=== PATIENT | female | born 1950 | race Caucasian/White ===

== ENCOUNTER → 2020-11-13 11:06 | Outpatient (BNVA) | payer MEDICARE, SELFPAY | PROVIDERS: PCP Internal Medicine; Visit Provider Hospitalist | DX: Z13.89 Encounter for screening for other disorder (principal) | CPT/HCPCS: 99212 ==

== ENCOUNTER 2021-06-16 11:16 | Outpatient (REF) | payer MEDICARE, SELFPAY ==
--- NOTE | ~2021-06-16 | XR_ITS ---
EXAMINATION: XR CHEST CLINICAL INFORMATION: Exposure to asbestos. COMPARISON: Most recent chest radiograph dated 09/20/2019. TECHNIQUE: 2 views of the chest were obtained. FINDINGS: The lungs are clear. The cardiomediastinal silhouette is normal in size. There is no pleural effusion or pneumothorax. No acute osseous abnormality. XR/XR chest 2V IMPRESSION: No acute cardiopulmonary findings.
== END 2021-06-16 11:17 | disposition home or self-care (01) ==
LOC: HO.XRAY 11:16
PROVIDERS: PCP Physician Assistant Medical; Visit Provider Hospitalist
DX: J45.40 Moderate persistent asthma, uncomplicated (principal); G47.33 Obstructive sleep apnea (adult) (pediatric); D80.1 Nonfamilial hypogammaglobulinemia; Z79.899 Other long term (current) drug therapy; Z77.090 Contact with and (suspected) exposure to asbestos
CPT/HCPCS: 71046; 99212

== ENCOUNTER 2021-06-26 12:38 | Outpatient (REF) | payer MEDICARE, SELFPAY ==
--- NOTE | 2021-06-26 17:14 | PFT_ITS ---
INDICATION: Dyspnea. SPIROMETRY: The FEV1 to FVC of 73% with an FEV1 of 1.72 L, which is predicted, and FVC 2.37 L, which is 88% predicted. No significant response to bronchodilators noted. Maximum voluntary ventilation 85% predicted. LUNG VOLUMES: Total lung capacity 105% predicted with an expiratory reserve volume of 51% predicted. DIFFUSION CAPACITY: DLCO 89% predicted. FLOW VOLUME LOOP: Upon evaluation, there appears to be some slight concavity to the expiratory limb suggesting obstructive physiology. COMPARISON: PFTs from 2020. INTERPRETATION: No definitive obstructive nor restrictive ventilatory defects. No significant response to bronchodilators noted. Although, there appears to be some degree of small airways disease and the flow volume loop is suggestive of an obstructive physiology. Normal maximum voluntary ventilation. Lung volumes are normal except for decrease in the expiratory reserve volume secondary to an elevated BMI. Diffusion capacity is within normal limits. When compared to 2019, there is a trend increase in the FVC, trend increase in the FEV1, significant increase in the total lung capacity, and a trend decrease in the diffusion capacity. Clinical correlation warranted. MD MEGAN Esp[place]/CARRIE / [id number]
== END 2021-06-26 12:39 | disposition home or self-care (01) ==
LOC: HO.RESP 12:38
PROVIDERS: PCP Physician Assistant Medical; Visit Provider Hospitalist
DX: R06.00 Dyspnea, unspecified (principal); J45.40 Moderate persistent asthma, uncomplicated; Z77.090 Contact with and (suspected) exposure to asbestos
CPT/HCPCS: 94060; 94727; 94729

== ENCOUNTER → 2021-07-24 12:48 | Outpatient (BNVA) | payer MEDICARE, SELFPAY | PROVIDERS: PCP Physician Assistant Medical; Visit Provider Hospitalist | DX: J44.9 Chronic obstructive pulmonary disease, unspecified (principal); J45.40 Moderate persistent asthma, uncomplicated; R06.00 Dyspnea, unspecified; D80.1 Nonfamilial hypogammaglobulinemia; G47.33 Obstructive sleep apnea (adult) (pediatric); Z77.090 Contact with and (suspected) exposure to asbestos; Z91.09 Other allergy status, other than to drugs and biological substances; Z99.89 Dependence on other enabling machines and devices; Z20.822 Contact with and (suspected) exposure to COVID-19 | CPT/HCPCS: 99212 ==

== ENCOUNTER 2022-01-14 13:43 | Outpatient (REF) | payer MEDICARE, SELFPAY ==
[2022-01-14 13:59] LABS: MANUAL DIFF FLAG NO
[2022-01-14 14:22] LABS: Basophils Absolute Auto 0.1 X10*3/uL (0.0-0.2); Basophils Percent Auto 0.7 % (0-2); Eosinophils Absolute Auto 0.2 X10*3/uL (0.0-0.4); Eosinophils Percent Auto 2.3 % (0-4); Hematocrit 41.9 % (37.0-47.0); Imm Gran Abs Auto 0.02 X10*3/uL (0.00-0.03); Imm Gran Pct Auto 0.2 % (0.0-0.4); Lymphocytes Absolute Auto 1.8 X10*3/uL (1.2-4.9); Lymphocytes Percent Auto 20.8 % (20-40); Mean Corpuscular HGB Conc 33.4 g/dl (31.0-35.0); Mean Corpuscular Hemoglobin 31.2 pg (27.0-33.0); Mean Corpuscular Volume 93.3 fL (80.0-98.0); Mean Platelet Volume 11.6 fL (9.4-12.3); Monocytes Absolute Auto 0.7 X10*3/uL (0.1-1.2); Monocytes Percent Auto 7.9 % (2-11); Neutrophils Percent Auto 68.1 % (45-73); Platelet Count 225 X10*3/uL (160-400); Red Blood Count 4.49 X10*6/uL (4.20-5.50); Red Cell Distribution Width 12.6 % (11.0-16.0); White Blood Count 8.9 X10*3/uL (4.8-10.8)
[2022-01-14 14:40] LABS: Anion Gap 14 (12-20); Blood Urea Nitrogen 25 mg/dL (9-16); Carbon Dioxide 28 mmol/L (22-29); Chloride 103 mmol/L (96-108); Estimated Glomerular Filt Rate 60; Glucose Random 142 mg/dL (60-115); Potassium 4.4 mmol/L (3.3-5.1); Sodium 141 mmol/L (135-145)
[2022-01-14 15:28] LABS: Erythrocyte Sedimentation Rate 41 MM/HR (0-20)
[2022-01-16 07:32] LABS: Immunoglobulin E 62 kU/L (<OR=114)
== END 2022-01-14 13:44 | disposition home or self-care (01) ==
LOC: HO.LAB 13:43
PROVIDERS: PCP Physician Assistant Medical; Visit Provider Hospitalist
DX: J45.40 Moderate persistent asthma, uncomplicated (principal); G47.33 Obstructive sleep apnea (adult) (pediatric)
CPT/HCPCS: 36415; 80048; 82785; 85025; 85652

== ENCOUNTER 2022-01-22 12:58 | Outpatient (REF) | payer MEDICARE, SELFPAY ==
--- NOTE | ~2022-01-22 | XR_ITS ---
EXAMINATION: XR CHEST CLINICAL INFORMATION: Pleurodynia COMPARISON: Previous chest x-ray June 2021 TECHNIQUE: 2 views of the chest were obtained. FINDINGS: The cardiac and mediastinal contours are stable. The lungs are clear. There is no pleural effusion or pneumothorax. There are degenerative changes of the spine. There may be old trauma to the left clavicle. XR/XR chest 2V IMPRESSION: No evidence for acute disease in the chest.
== END 2022-01-22 12:59 | disposition home or self-care (01) ==
LOC: HO.XRAY 12:58
PROVIDERS: PCP Physician Assistant Medical; Visit Provider Hospitalist
DX: R07.81 Pleurodynia (principal); J45.40 Moderate persistent asthma, uncomplicated; G47.33 Obstructive sleep apnea (adult) (pediatric); D80.1 Nonfamilial hypogammaglobulinemia; Z77.090 Contact with and (suspected) exposure to asbestos
CPT/HCPCS: 71046; 99212

== ENCOUNTER → 2022-07-22 12:53 | Outpatient (BNVA) | payer MEDICARE, SELFPAY | PROVIDERS: PCP Physician Assistant Medical; Visit Provider Hospitalist | DX: J45.40 Moderate persistent asthma, uncomplicated (principal); J44.9 Chronic obstructive pulmonary disease, unspecified; G47.33 Obstructive sleep apnea (adult) (pediatric); D80.1 Nonfamilial hypogammaglobulinemia; R07.81 Pleurodynia; Z77.090 Contact with and (suspected) exposure to asbestos; Z99.89 Dependence on other enabling machines and devices | CPT/HCPCS: 99212 ==

== ENCOUNTER → 2023-01-27 12:50 | Outpatient (BNVA) | payer MEDICARE, SELFPAY | PROVIDERS: PCP Physician Assistant Medical; Visit Provider Hospitalist | DX: J45.40 Moderate persistent asthma, uncomplicated (principal); G47.33 Obstructive sleep apnea (adult) (pediatric); D80.1 Nonfamilial hypogammaglobulinemia; Z77.090 Contact with and (suspected) exposure to asbestos | CPT/HCPCS: 99212 ==

== ENCOUNTER 2023-05-13 13:31 | Outpatient (AMB) | payer MEDICARE, SELFPAY ==
--- NOTE | 2023-05-13 13:32 | A.OFFVIS_ITS ---
Intake Vital Signs 05/13/23 13:33 Height 5 ft 1 in Weight 231 lb 7.766 oz BMI 43.7 BP 138/67 Blood Pressure Location Rt brachial Position Sitting Pulse 74 Pulse Source Doppler Pulse Oximetry (%) 98 Oxygen Delivery Method Room Air Intake Visit Reasons: SV Allergies Tape Allergy (Severe, Uncoded 01/27/23 13:03) Itching HPI SV HPI Details 72-year-old lady, followed by Dr. Saurav covarrubias for asthma and hypogammaglobulinemia, now presenting with an acute bronchitic exacerbation complaining of wheezing worsening dyspnea on exertion. [facility] Medical History (Updated 05/13/23 @ 13:54 by Navid Toussaint MD) Asbestos exposure Hypogammaglobulinemia BRIDGET treated with BiPAP Asthma Social History Patient Tobacco Use Status: Never used Tobacco Review of Systems Const Denies daytime sleepiness, Denies excessive sweating, Denies fatigue, Denies fever(s), Denies lethargy, Denies malaise, Denies night sweats, Denies snoring and Denies weight loss Eyes Denies blurry vision and Denies itchy eyes ENT Denies nasal congestion, Denies post nasal drip, Denies sinus pain, Denies sinus pressure and Denies other ( Thrush) Card Denies chest pain, Denies pedal edema, Denies dyspnea, Reports dyspnea on exertion, Denies orthopnea and Denies paroxysmal nocturnal dyspnea Resp Reports cough, Denies hemoptysis, Denies excessive phlegm production, Denies dyspnea, Reports dyspnea on exertion, Denies snoring and Reports wheezing GI Denies abdominal pain and Denies heartburn Musc Denies myalgias, Denies arthralgias and Denies joint swelling Skin/Breast Denies rash Neuro Denies memory loss and Denies seizure-like activity Psych Denies abnormal sleep pattern, Denies anxiety and Denies memory loss Endo Denies excessive sweating, Denies fatigue and Denies heat intolerance Preston/Lymph Denies easy bruising Aller/Immun Denies itchy eyes, Denies seasonal rhinorrhea and Reports wheezing Physical Exam Vital Signs: Last Vital Signs Pulse 74 05/13/23 13:33 BP 138/67 05/13/23 13:33 Pulse Ox 98 05/13/23 13:33 Oxygen Delivery Method Room Air 05/13/23 13:33 BMI result Body Mass Index 43.7 Const General: no acute distress and alert Nutritional Appearance: obese Orientation/consciousness: Other orientation findings ( oriented) HEENT Head: Yes atraumatic Eyes General: appearance normal, both eyes and all related structures Sclerae: sclerae normal EOM: EOMs intact bilaterally Neck Neck: Yes supple Lymphatic: no lymphadenopathy noted Resp Effort & Inspection: normal respiratory effort and no use of accessory muscles Auscultation: wheezes (Mild bilateral expiratory) Cardio Rate: regular rate Rhythm: regular rhythm Heart sounds: no gallops, no murmurs and no rubs Skin General skin exam: other ( warm) Extrem General: No clubbing, No cyanosis and No edema Assessment & Plan Assessment & Plan (1) Acute exacerbation of chronic bronchitis: Code(s): J20.9 - Acute bronchitis, unspecified; J42 - Unspecified chronic bronchitis Plan: Patient seen for acute bronchitic exacerbation of underlying asthma on the background of hypogammaglobulinemia. Will treat with a course of doxycycline and prednisone. Medications: New nebulizer and compressor As directed 1 ea 0RF P.r.n. for wheezing doxycycline monohydrate 100 mg PO BID 10 days 20 caps 0RF prednisone 40 mg (2 x 20 mg) PO DAILY 4 days 8 tabs 0RF Coding Level of Care Code Est Pt Level 3 (87033) Diagnoses Acute exacerbation of chronic bronchitis J20.9; J42
[2023-05-13 13:33] VITALS: BP 138/67; PULSE 74; O2SAT 98; BMI 43.7
== END 2023-05-13 13:50 | disposition home or self-care (01) ==
PROVIDERS: PCP Physician Assistant Medical; Visit Provider Internal Medicine Pulmonary Disease
DX: J20.9 Acute bronchitis, unspecified (principal); J42 Unspecified chronic bronchitis
CPT/HCPCS: 99213

== ENCOUNTER → 2023-05-13 13:31 | Outpatient (BNVA) | payer MEDICARE, SELFPAY | PROVIDERS: PCP Physician Assistant Medical; Visit Provider Internal Medicine Pulmonary Disease | DX: J42 Unspecified chronic bronchitis (principal); J20.9 Acute bronchitis, unspecified | CPT/HCPCS: 99212 ==

== ENCOUNTER 2023-06-09 14:57 | Outpatient (REF) | payer MEDICARE, SELFPAY ==
--- NOTE | ~2023-06-09 | XR_ITS ---
EXAMINATION: XR CHEST CLINICAL INFORMATION: Acute bronchitis COMPARISON: Previous chest x-ray January 2022 TECHNIQUE: 2 views of the chest were obtained. FINDINGS: The cardiac and mediastinal contours are stable. The lungs are clear. No pleural effusion or pneumothorax. There are degenerative changes of the spine. XR/XR chest 2V IMPRESSION: No evidence for acute disease in the chest.
== END 2023-06-09 14:58 | disposition home or self-care (01) ==
LOC: HO.XRAY 14:57
PROVIDERS: PCP Physician Assistant Medical; Visit Provider Hospitalist
DX: J42 Unspecified chronic bronchitis (principal); J45.41 Moderate persistent asthma with (acute) exacerbation; G47.33 Obstructive sleep apnea (adult) (pediatric); D80.1 Nonfamilial hypogammaglobulinemia; Z77.090 Contact with and (suspected) exposure to asbestos; Z79.899 Other long term (current) drug therapy
CPT/HCPCS: 71046; 99212

== ENCOUNTER 2023-06-09 14:57 | Outpatient (AMB) | payer MEDICARE, SELFPAY ==
--- NOTE | 2023-06-09 15:02 | MHC.OFFVIS ---
Intake Vital Signs 06/09/23 15:04 Height 5 ft 1 in Weight 231 lb 7.766 oz BMI 43.7 Pulse 83 Pulse Source Pulse Oximeter Temp 98.9 F Temp Source Temporal Artery Scan Pulse Oximetry (%) 97 Oxygen Delivery Method Room Air Intake Visit Reasons: Follow up for Asthma [employer] Required: No Allergies Tape Allergy (Severe, Uncoded 06/09/23 15:02) Itching HPI HPI Comments History of Present Illness Details The patient is 72 y/o woman with a history of moderate severe asthma in addition to BRIDGET on BiPAP and hypogammaglobulinemia receiving IgG infusions every 3 weeks. She gets chills at home. She has been complaining of worsening dyspnea on exertion. Moderate in severity. Does improve with rest. She also has substernal chest pressure related to the shortness of breath. Her inhalers are not helping. She does use her nebulizer and does relieve some of the discomfort. She continues to use the BiPAP. The BiPAP has been affecting beneficial. However, she is waiting for replacement. She continues to get the IgG infusions at home. Does also have been very effective for her. The plan is for her to continue that therapy. Also to note she had a complete cardiac workup including cardiac cath and per report it was ok. The patient is still having dyspnea symptoms. She continues her respiratory therapy although she has not been using the inhalers as much because it causes worsens and thrush. Therefore she stopped the trelegy. We did review her PFTs demonstrating a reversible obstruction with significant response to bronchodilators. Therefore, I do think that she needs to be on a maintenance inhaler and therefore will provide her Symbicort with spacer hopefully she can tolerate a smaller does without the adverse effects with rest that she typically gets. The patient is has been getting her IgG infusions and Her BiPAP therapy has been affecting beneficial is no issues with that. 07/22/2022 the patient is here for a pulmonary follow-up visit. Overall the patient is doing well. She continues use the BiPAP every night. The BiPAP therapy continues to be affecting beneficial. She did have a overnight oximetry requested by her provider. This was done while she was using BiPAP. Her oxygen was actually very good while on the BiPAP. She does not qualify for any oxygen supplementation. In addition to that it was noted that her heart rate decreased to the lowest of 50 beats per minute. Explained to the patient that while sleeping she is more prone to having some degree of bradycardia. This is due to the parasympathetic effect of sleep. the patient wakes up well and heart rate does not demonstrate any evidence of any bradycardia While awake. She does not take any medications that potentially results in the bradycardia. I will request that she gets an EKG just to make sure that her conduction intervals are within normal limits. Otherwise she continues use her respiratory therapy as prescribed. She has not had any recent exacerbations. She will be evaluated for potential knee surgery coming up soon. 01/27/2023 the patient is here for a pulmonary follow-up visit. The patient is doing very well. Since we last spoke she had 2 surgeries for her needs and she tolerated them well. We will issues with anesthesia recovery. She has actually been walking better without any significant shortness of breath. She continues uses Symbicort and Incruse as prescribed. She has not had to use her rescue inhaler. We did review her last chest x-ray from January 2022 demonstrating no acute disease although she does have musculoskeletal issues. Will plan to repeat the x-ray again in 1 year. The patient also has been using her noninvasive ventilator. The therapy has been affecting beneficial. We did look at the overnight oximetry in the patient did not require any oxygen supplementation. Her heart rate issue improved. Now heart rate is varying around 75 beats per minute. Otherwise he would never take stable. 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 She is getting IgG every 3 weeks. She still has issues with hypertension during the infusion. Usually systolic to the 180s. They usually come down. The patient does get pretreated with Benadryl and Tylenol prior. She has monitor for about 4-6 hours while getting the infusion. 06/09/2023 the patient is here for sick visit. Apparently she has not been feeling well since May. She was evaluated by 1 of our colleagues back early May with a asthma exacerbation. She was given doxycycline and also prednisone taper. She did partially get better but she did not improve completely. She continues to have chest heaviness in addition to shortness of breath. Moderate severity. She is having hard time sleeping because of her coughing. She is been using nebulized therapy multiple times a day. She is due for her IVIG which she should be getting in the next week. She appears to some breathless even while she is talking. She is also little hoarse. Her cough seems to be more dry although she does have sometimes expectorate. She is wondering if she could have walking pneumonia . At this point the patient will go back on a course of antibiotics and prednisone. I suspect that she probably did up with RSV. Will go ahead and request a chest x-ray. If the patient is no better after the 2nd course of medications she will get blood work including a D-dimer to assess for other etiologies. [facility] Medical History (Updated 06/09/23 @ 21:48 by Delfino Osorio MD) Asbestos exposure Hypogammaglobulinemia BRIDGET treated with BiPAP Asthma Social History Patient Tobacco Use Status: Never used Tobacco Review of Systems Const Reports fatigue and Denies night sweats ENT Denies change in voice, Denies lip swelling, Denies mouth pain, Reports nasal congestion, Reports nasal discharge and Denies tongue swelling Card Reports dyspnea and Reports dyspnea on exertion Resp Reports chest congestion, Reports cough, Reports pain on inspiration, Reports dyspnea, Reports dyspnea on exertion and Reports wheezing GI Denies abdominal pain Musc Denies no additional complaints Neuro Denies Neuro-related abnormal movements Psych Denies no additional complaints Endo Reports fatigue Preston/Lymph Denies easy bleeding and Denies lymphadenopathy Aller/Immun Denies lip swelling, Denies tongue swelling and Reports wheezing Physical Exam Vital Signs: Last Vital Signs Temp 98.9 F 06/09/23 15:04 Pulse 83 06/09/23 15:04 Pulse Ox 97 06/09/23 15:04 Oxygen Delivery Method Room Air 06/09/23 15:04 BMI result Body Mass Index 43.7 Const General: alert HEENT General nose exam: Abnormal external nose present and Nasal discharge present Eyes Pupils: Equal, round and reactive pupils present Neck Neck: Yes normal visual inspection, Yes full ROM and Yes no lymphadenopathy Chest Chest palpation & inspection: normal inspection of the chest and tenderness costochondral junction and costal cartilage Resp Effort & Inspection: labored and tachypneic Auscultation: wheezes and diminished lung sounds Cardio Rate: regular rate Rhythm: regular rhythm Heart sounds: S1 normal heart sound present and S2 normal heart sound present GI Palpation (GI): Soft to palpation and nontender Auscultation: normal bowel sounds General: Yes no CVA tenderness Back/Spine/Pelvis Back: no CVA tenderness Skin General skin exam: rashes and/or lesions noted Neuro Cranial nerves: Yes Equal, round and reactive pupils present Assessment & Plan Assessment & Plan (1) Asthma: Code(s): J45.909 - Unspecified asthma, uncomplicated Qualifiers: Asthma complication type: with acute exacerbation Asthma persistence: persistent Asthma severity: moderate Qualified Code(s): J45.41 - Moderate persistent asthma with (acute) exacerbation (2) BRIDGET treated with BiPAP: Code(s): G47.33 - Obstructive sleep apnea (adult) (pediatric) (3) Hypogammaglobulinemia: Code(s): D80.1 - Nonfamilial hypogammaglobulinemia (4) Asbestos exposure: Code(s): Z77.090 - Contact with and (suspected) exposure to asbestos Plan CXR Labs if no better including Ddimer Restart Prednisone start Azithromycin Continue Symbicort continue Incruse daily ION as needed IVIG every 3 weeks, should get pretreatment to avoid/minimize reactions Continue BIPAP F/U 6 weeks Orders: Orders Complete Blood Count Auto Diff Today J20.9 - Acute bronchitis, unspecified, J42 - Unspecified chronic bronchitis Basic Metabolic Panel Today J20.9 - Acute bronchitis, unspecified, J42 - Unspecified chronic bronchitis XR chest 2V Today J20.9 - Acute bronchitis, unspecified, J42 - Unspecified chronic bronchitis D Dimer High Sensitivity Today J20.9 - Acute bronchitis, unspecified, J42 - Unspecified chronic bronchitis Medications: New prednisone PO daily; Take 2 tabs daily x 5 days, then 1 tablet daily x 5 days 10 days 15 tabs 0RF azithromycin 500 mg PO DAILY 5 days 5 tabs 0RF Coding Level of Care Code Est Pt Level 4 (86898) Diagnoses Moderate persistent asthma with acute exacerbation J45.41 Asthma complication type: with acute exacerbation Asthma persistence: persistent Asthma severity: moderate BRIDGET treated with BiPAP G47.33 Hypogammaglobulinemia D80.1 Asbestos exposure Z77.090 Time Spent (min) 17
[2023-06-09 15:04] VITALS: PULSE 83; TEMP 37.2; O2SAT 97; BMI 43.7
== END 2023-06-09 15:32 | disposition home or self-care (01) ==
PROVIDERS: PCP Physician Assistant Medical; Visit Provider Hospitalist
DX: J45.41 Moderate persistent asthma with (acute) exacerbation (principal); G47.33 Obstructive sleep apnea (adult) (pediatric); D80.1 Nonfamilial hypogammaglobulinemia; Z77.090 Contact with and (suspected) exposure to asbestos
CPT/HCPCS: 99214

== ENCOUNTER 2023-06-14 07:40 | Outpatient (REF) | payer MEDICARE, SELFPAY ==
[2023-06-14 08:40] LABS: Anion Gap 15 (12-20); Blood Urea Nitrogen 24 mg/dL (9-16); Calcium 9.5 mg/dL (8.4-10.2); Carbon Dioxide 25 mmol/L (22-29); Chloride 106 mmol/L (96-108); Estimated Glomerular Filt Rate > 60; Glucose Random 146 mg/dL (60-115); Potassium 4.1 mmol/L (3.3-5.1); Sodium 142 mmol/L (135-145)
== END 2023-06-14 07:41 | disposition home or self-care (01) ==
LOC: HO.LAB 07:40
PROVIDERS: PCP Physician Assistant Medical; Visit Provider Hospitalist
DX: J20.9 Acute bronchitis, unspecified (principal); J42 Unspecified chronic bronchitis
CPT/HCPCS: 36415; 80048; 85025; 85379

== ENCOUNTER 2023-06-15 11:14 | Outpatient (REF) | payer MEDICARE, SELFPAY ==
--- NOTE | ~2023-06-15 | CT_ITS ---
EXAMINATION: CT ANGIOGRAM OF THE CHEST WITH AND WITHOUT CONTRAST (CT PULMONARY ANGIOGRAM FOR PE) CLINICAL INFORMATION: Reason for Exam R07.81 - Pleurodynia COMPARISON: Previous chest x-ray most recent 06/09/2023 TECHNIQUE: Prior to contrast administration, noncontrast localization images were obtained. Subsequently, multidetector volumetric imaging was performed from the thoracic inlet to below the diaphragms following the administration of 65 mL Omnipaque 350 intravenous contrast. No contrast reaction reported Sagittal, coronal, and MIP oblique sagittal reformatted images were obtained on the CT workstation, uploaded to PACS, and reviewed. This CT examination was performed using dose optimization techniques as appropriate, variously including the following: *Automated exposure control *Adjustment of mA and/or kV according to patient size (this includes techniques or standardized protocols for targeted exams where dose is matched to indication/reason for exam; i.e. extremities or head) *Use of iterative reconstruction technique Total exam dose-length product 192 mGy-cm FINDINGS: QUALITY OF STUDY/CONTRAST BOLUS: Satisfactory. PULMONARY ARTERIES: No pulmonary emboli. THORACIC AORTA: No aneurysm. LUNG: Subsegmental atelectasis at the lung bases. The lungs are otherwise clear. No evidence of bronchiectasis or interstitial lung disease. No endobronchial or endotracheal lesion PLEURA: Scattered small left pleural calcifications and areas of mild pleural thickening. No mass. No pleural effusion. MEDIASTINUM: Upper normal heart size. No pericardial effusion. No hilar or mediastinal lymphadenopathy. No evidence of septal bowing or right heart strain. CORONARY ARTERY CALCIFICATION: Mild CHEST WALL/AXILLA: No axillary or internal mammary lymphadenopathy. OSSEOUS STRUCTURES: Degenerative changes of the spine. UPPER ABDOMEN: Unremarkable. No reflux of contrast into the hepatic veins to suggest elevated right heart pressures. CT/CT angio chest PE protocol IMPRESSION: No evidence of pulmonary embolism. Scattered small left pleural calcification and adjacent mild pleural thickening. No pleural mass. VTE: negative
== END 2023-06-15 11:15 | disposition home or self-care (01) ==
LOC: HO.CT 11:14
PROVIDERS: Visit Provider Hospitalist
DX: R07.81 Pleurodynia (principal)
CPT/HCPCS: 71275; Q9967

== ENCOUNTER 2023-08-19 09:31 | Outpatient (AMB) | payer MEDICARE, SELFPAY ==
--- NOTE | 2023-08-19 09:37 | A.OFFVIS_ITS ---
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 She gets chills at home. She has been complaining of worsening dyspnea on exertion. Moderate in severity. Does improve with rest. She also has substernal chest pressure related to the shortness of breath. Her inhalers are not helping. She does use her nebulizer and does relieve some of the discomfort. She continues to use the BiPAP. The BiPAP has been affecting beneficial. However, she is waiting for replacement. She continues to get the IgG infusions at home. Does also have been very effective for her. The plan is for her to continue that therapy. Also to note she had a complete cardiac workup including cardiac cath and per report it was ok. The patient is still having dyspnea symptoms. She continues her respiratory therapy although she has not been using the inhalers as much because it causes worsens and thrush. Therefore she stopped the trelegy. We did review her PFTs demonstrating a reversible obstruction with significant response to bronchodilators. Therefore, I do think that she needs to be on a maintenance inhaler and therefore will provide her Symbicort with spacer hopefully she can tolerate a smaller does without the adverse effects with rest that she typically gets. The patient is has been getting her IgG infusions and Her BiPAP therapy has been affecting beneficial is no issues with that. 07/22/2022 the patient is here for a pulmonary follow-up visit. Overall the patient is doing well. She continues use the BiPAP every night. The BiPAP therapy continues to be affecting beneficial. She did have a overnight oximetry requested by her provider. This was done while she was using BiPAP. Her oxygen was actually very good while on the BiPAP. She does not qualify for any oxygen supplementation. In addition to that it was noted that her heart rate decreased to the lowest of 50 beats per minute. Explained to the patient that while sleeping she is more prone to having some degree of bradycardia. This is due to the parasympathetic effect of sleep. the patient wakes up well and heart rate does not demonstrate any evidence of any bradycardia While awake. She does not take any medications that potentially results in the bradycardia. I will request that she gets an EKG just to make sure that her conduction intervals are within normal limits. Otherwise she continues use her respiratory therapy as prescribed. She has not had any recent exacerbations. She will be evaluated for potential knee surgery coming up soon. 01/27/2023 the patient is here for a pulmonary follow-up visit. The patient is doing very well. Since we last spoke she had 2 surgeries for her needs and she tolerated them well. We will issues with anesthesia recovery. She has actually been walking better without any significant shortness of breath. She continues uses Symbicort and Incruse as prescribed. She has not had to use her rescue inhaler. We did review her last chest x-ray from January 2022 demonstrating no acute disease although she does have musculoskeletal issues. Will plan to repeat the x-ray again in 1 year. The patient also has been using her noninvasive ventilator. The therapy has been affecting beneficial. We did look at the overnight oximetry in the patient did not require any oxygen supplementation. Her heart rate issue improved. Now heart rate is varying around 75 beats per minute. Otherwise he would never take stable. 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 She is getting IgG every 3 weeks. She still has issues with hypertension during the infusion. Usually systolic to the 180s. They usually come down. The patient does get pretreated with Benadryl and Tylenol prior. She has monitor for about 4-6 hours while getting the infusion. 06/09/2023 the patient is here for sick visit. Apparently she has not been feeling well since May. She was evaluated by 1 of our colleagues back early May with a asthma exacerbation. She was given doxycycline and also prednisone taper. She did partially get better but she did not improve completely. She continues to have chest heaviness in addition to shortness of breath. Moderate severity. She is having hard time sleeping because of her coughing. She is been using nebulized therapy multiple times a day. She is due for her IVIG which she should be getting in the next week. She appears to some breathless even while she is talking. She is also little hoarse. Her cough seems to be more dry although she does have sometimes expectorate. She is wondering if she could have walking pneumonia . At this point the patient will go back on a course of antibiotics and prednisone. I suspect that she probably did up with RSV. Will go ahead and request a chest x-ray. If the patient is no better after the 2nd course of medications she will get blood work including a D-dimer to assess for other etiologies. 08/19/2023 the patient is here for pulmonary follow-up visit. The patient is feeling a lot better. She is now back to her baseline. She continues use her respiratory therapy. We did review her imaging studies including a CT of the chest demonstrating no acute disease. She still gets these episodes of cough and productive in nature difficult to expectorate the phlegm. She get a Acapella valve but does not seem to be working effectively. She tried [id number] Mucinex the high dose to see if this is helpful in providing good mucus clearance. If not she is going to try to get a sputum culture. She has left than on the CT scan of the chest that I see that is concerning. She continues to receive the IVIG every 3 weeks without any issues. Her blood pressure seems to be doing better. As far as vaccinations he has got all her vaccines except for the RT vaccine. She will get that as well as possible. Otherwise follow-up in 6 months. [facility] Medical History (Updated 06/09/23 @ 21:48 by Delfino Osorio MD) Asbestos exposure Hypogammaglobulinemia BRIDGET treated with BiPAP Asthma Social History Patient Tobacco Use Status: Never used Tobacco Review of Systems Const Reports fatigue and Denies night sweats ENT Denies change in voice, Denies lip swelling, Denies mouth pain, Reports nasal congestion, Reports nasal discharge and Denies tongue swelling Card Reports dyspnea on exertion Resp Reports chest congestion, Reports cough, Denies pain on inspiration, Reports dyspnea on exertion and Denies wheezing GI Denies abdominal pain Musc Denies no additional complaints Neuro Denies Neuro-related abnormal movements Psych Denies no additional complaints Endo Reports fatigue Preston/Lymph Denies easy bleeding and Denies lymphadenopathy Aller/Immun Denies lip swelling, Denies tongue swelling and Denies wheezing Physical Exam Vital Signs: Last Vital Signs Pulse 81 12/15/23 09:38 Pulse Ox 98 08/19/23 09:38 Oxygen Delivery Method Room Air 08/19/23 09:38 BMI result Body Mass Index 43.1 Const General: comfortable and alert HEENT General nose exam: Abnormal external nose present and Nasal discharge present Eyes Pupils: Equal, round and reactive pupils present Neck Neck: Yes normal visual inspection, Yes full ROM and Yes no lymphadenopathy Chest Chest palpation & inspection: normal inspection of the chest and tenderness costochondral junction and costal cartilage Resp Effort & Inspection: normal respiratory effort Auscultation: no wheezes and diminished lung sounds Cardio Rate: regular rate Rhythm: regular rhythm Heart sounds: S1 normal heart sound present and S2 normal heart sound present GI Palpation (GI): Soft to palpation and nontender Auscultation: normal bowel sounds General: Yes no CVA tenderness Back/Spine/Pelvis Back: no CVA tenderness Skin General skin exam: rashes and/or lesions noted Neuro Cranial nerves: Yes Equal, round and reactive pupils present Assessment & Plan Assessment & Plan (1) Asthma: Code(s): J45.909 - Unspecified asthma, uncomplicated Qualifiers: Asthma complication type: with acute exacerbation Asthma persistence: persistent Asthma severity: moderate Qualified Code(s): J45.41 - Moderate persistent asthma with (acute) exacerbation (2) BRIDGET treated with BiPAP: Code(s): G47.33 - Obstructive sleep apnea (adult) (pediatric) (3) Hypogammaglobulinemia: Code(s): D80.1 - Nonfamilial hypogammaglobulinemia (4) Asbestos exposure: Code(s): Z77.090 - Contact with and (suspected) exposure to asbestos Plan Continue Symbicort continue Incruse daily (consider holding if no better) trial mucinex 1200mg sputum cx if able ION as needed IVIG every 3 weeks, should get pretreatment to avoid/minimize reactions Continue BIPAP F/U 6 weeks Orders: Orders Sputum Cult + Gram stain Today J45.909 - Unspecified asthma, uncomplicated Medications: Changed From montelukast 10 mg PO DAILY To montelukast 10 mg PO DAILY 90 days 90 tabs 3RF Coding Level of Care Code Est Pt Level 4 (05265) Diagnoses Moderate persistent asthma with acute exacerbation J45.41 Asthma complication type: with acute exacerbation Asthma persistence: persistent Asthma severity: moderate BRIDGET treated with BiPAP G47.33 Hypogammaglobulinemia D80.1 Asbestos exposure Z77.090 Time Spent (min) 17
[2023-08-19 09:38] VITALS: PULSE 81; O2SAT 98; BMI 43.1
== END 2023-08-19 10:02 | disposition home or self-care (01) ==
PROVIDERS: PCP Physician Assistant Medical; Visit Provider Hospitalist
DX: J45.41 Moderate persistent asthma with (acute) exacerbation (principal); G47.33 Obstructive sleep apnea (adult) (pediatric); D80.1 Nonfamilial hypogammaglobulinemia; Z77.090 Contact with and (suspected) exposure to asbestos
CPT/HCPCS: 99214

== ENCOUNTER → 2023-08-19 09:31 | Outpatient (BNVA) | payer MEDICARE, SELFPAY | PROVIDERS: PCP Physician Assistant Medical; Visit Provider Hospitalist | DX: J45.41 Moderate persistent asthma with (acute) exacerbation (principal); G47.33 Obstructive sleep apnea (adult) (pediatric); D80.1 Nonfamilial hypogammaglobulinemia; Z77.090 Contact with and (suspected) exposure to asbestos | CPT/HCPCS: 99212 ==

== ENCOUNTER 2024-01-25 11:11 | Outpatient (AMB) | payer MEDICARE, SELFPAY ==
[2024-01-25 11:20] VITALS: PULSE 81; O2SAT 97; BMI 42.9
--- NOTE | 2024-01-25 11:20 | MHC.OFFVIS ---
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 She gets chills at home. She has been complaining of worsening dyspnea on exertion. Moderate in severity. Does improve with rest. She also has substernal chest pressure related to the shortness of breath. Her inhalers are not helping. She does use her nebulizer and does relieve some of the discomfort. She continues to use the BiPAP. The BiPAP has been affecting beneficial. However, she is waiting for replacement. She continues to get the IgG infusions at home. Does also have been very effective for her. The plan is for her to continue that therapy. Also to note she had a complete cardiac workup including cardiac cath and per report it was ok. The patient is still having dyspnea symptoms. She continues her respiratory therapy although she has not been using the inhalers as much because it causes worsens and thrush. Therefore she stopped the trelegy. We did review her PFTs demonstrating a reversible obstruction with significant response to bronchodilators. Therefore, I do think that she needs to be on a maintenance inhaler and therefore will provide her Symbicort with spacer hopefully she can tolerate a smaller does without the adverse effects with rest that she typically gets. The patient is has been getting her IgG infusions and Her BiPAP therapy has been affecting beneficial is no issues with that. 08/19/2023 the patient is here for pulmonary follow-up visit. The patient is feeling a lot better. She is now back to her baseline. She continues use her respiratory therapy. We did review her imaging studies including a CT of the chest demonstrating no acute disease. She still gets these episodes of cough and productive in nature difficult to expectorate the phlegm. She get a Acapella valve but does not seem to be working effectively. She tried [id number] Mucinex the high dose to see if this is helpful in providing good mucus clearance. If not she is going to try to get a sputum culture. She has left than on the CT scan of the chest that I see that is concerning. She continues to receive the IVIG every 3 weeks without any issues. Her blood pressure seems to be doing better. As far as vaccinations he has got all her vaccines except for the RT vaccine. She will get that as well as possible. Otherwise follow-up in 6 months. 01/25/2024 the patient is here for a pulmonary follow-up visit. Overall she is doing okay although she has had issues with her insurance. The patient did have a worsening cough over the winter. With thick tenacious mucus difficult to clear. She almost call the office but she has not to. The symptoms did improve with time. She continues use her respiratory therapy. Now Symbicort is no longer covered by her insurance. Initially weight Center Breo since she was already on Incruse. There was a question about the powder inhalers so then we sent her Dulera as well. Now she has a lot of different inhalers. We need to make sure that she does not over medicate. Therefore I did spend some time with her explaining to her which inhalers to use. She will continue with her Symbicort until she runs out. Then after that she can switch over to Breo and continue using her Incruse. If she tolerates the Breo and Incruse well then we can consider poorly seeing her on Trelegy in the future. If she does not tolerate the powder inhaler then at that point she can try the Dulera. She will call if issues arise. In the meantime she continues with the IVIG infusions every 3 weeks. In addition to that she has been on the BiPAP therapy the BiPAP therapy has been affecting beneficial. She does use it for more than 4 hours a night. No issues with the mask or response to therapy. [facility] Medical History (Updated 01/25/24 @ 23:01 by Delfino Osorio MD) Asbestos exposure Hypogammaglobulinemia BRIDGET treated with BiPAP Asthma Social History Patient Tobacco Use Status: Never used Tobacco Review of Systems Const Reports fatigue and Denies night sweats ENT Denies change in voice, Denies lip swelling, Denies mouth pain, Reports nasal congestion, Reports nasal discharge and Denies tongue swelling Card Reports dyspnea on exertion Resp Reports chest congestion, Reports cough, Denies pain on inspiration, Reports dyspnea on exertion and Denies wheezing GI Denies abdominal pain Musc Denies no additional complaints Neuro Denies Neuro-related abnormal movements Psych Denies no additional complaints Endo Reports fatigue Preston/Lymph Denies easy bleeding and Denies lymphadenopathy Aller/Immun Denies lip swelling, Denies tongue swelling and Denies wheezing Physical Exam Vital Signs: Last Vital Signs Pulse 81 01/25/24 11:20 Pulse Ox 97 01/25/24 11:20 Oxygen Delivery Method Room Air 01/25/24 11:20 BMI result Body Mass Index 42.9 Const General: comfortable and alert HEENT General nose exam: Abnormal external nose present and Nasal discharge present Eyes Pupils: Equal, round and reactive pupils present Neck Neck: Yes normal visual inspection, Yes full ROM and Yes no lymphadenopathy Chest Chest palpation & inspection: normal inspection of the chest Resp Effort & Inspection: normal respiratory effort Auscultation: no wheezes and diminished lung sounds Cardio Rate: regular rate Rhythm: regular rhythm Heart sounds: S1 normal heart sound present and S2 normal heart sound present GI Palpation (GI): Soft to palpation and nontender Auscultation: normal bowel sounds General: Yes no CVA tenderness Back/Spine/Pelvis Back: no CVA tenderness Skin General skin exam: rashes and/or lesions noted Neuro Cranial nerves: Yes Equal, round and reactive pupils present Assessment & Plan Assessment & Plan (1) Asthma: Code(s): J45.909 - Unspecified asthma, uncomplicated Category: Medical Qualifiers: Asthma complication type: uncomplicated Asthma persistence: persistent Asthma severity: moderate Qualified Code(s): J45.40 - Moderate persistent asthma, uncomplicated (2) BRIDGET treated with BiPAP: Code(s): G47.33 - Obstructive sleep apnea (adult) (pediatric) Category: Medical (3) Hypogammaglobulinemia: Code(s): D80.1 - Nonfamilial hypogammaglobulinemia Category: Medical (4) Asbestos exposure: Code(s): Z77.090 - Contact with and (suspected) exposure to asbestos Category: Medical Plan Continue Symbicort->Breo continue Incruse daily ION as needed IVIG every 3 weeks, should get pretreatment to avoid/minimize reactions Continue BIPAP F/U 6 weeks Medications: New doxycycline monohydrate 100 mg PO BID 28 tabs 0RF 14 days Coding Level of Care Code Est Pt Level 4 (18130) Diagnoses Moderate persistent asthma without complication J45.40 Asthma complication type: uncomplicated Asthma persistence: persistent Asthma severity: moderate BRIDGET treated with BiPAP G47.33 Hypogammaglobulinemia D80.1 Asbestos exposure Z77.090 Time Spent (min) 17
== END 2024-01-25 11:43 | disposition home or self-care (01) ==
PROVIDERS: PCP Physician Assistant Medical; Visit Provider Hospitalist
DX: J45.40 Moderate persistent asthma, uncomplicated (principal); G47.33 Obstructive sleep apnea (adult) (pediatric); D80.1 Nonfamilial hypogammaglobulinemia; Z77.090 Contact with and (suspected) exposure to asbestos
CPT/HCPCS: 99214

== ENCOUNTER → 2024-01-25 11:11 | Outpatient (BNVA) | payer MEDICARE, SELFPAY | PROVIDERS: PCP Physician Assistant Medical; Visit Provider Hospitalist | DX: J44.9 Chronic obstructive pulmonary disease, unspecified (principal); J45.40 Moderate persistent asthma, uncomplicated; G47.33 Obstructive sleep apnea (adult) (pediatric); D80.1 Nonfamilial hypogammaglobulinemia; Z77.090 Contact with and (suspected) exposure to asbestos; Z99.89 Dependence on other enabling machines and devices | CPT/HCPCS: 99212 ==

== ENCOUNTER 2024-05-22 10:36 | Outpatient (AMB) | payer MEDICARE, SELFPAY ==
--- NOTE | 2024-05-22 10:39 | A.OFFVIS_ITS ---
Vital Signs 05/22/24 10:41 Height 5 ft 1 in Weight 235 lb BMI 44.4 BP 128/60 Blood Pressure Location Rt brachial Position Sitting Pulse 90 Pulse Source Pulse Oximeter Pulse Oximetry (%) 96 Oxygen Delivery Method Room Air Intake Visit Reasons: cough, sob [facility] Product Specialist Required: No Allergies Tape Allergy (Severe, Uncoded 05/22/24 10:45) Itching HPI Comments Details: The patient is 73 y/o woman with a history of moderate severe asthma in addition to BRIDGET on BiPAP and hypogammaglobulinemia receiving IgG infusions every 3 weeks. She gets chills at home. She has been complaining of worsening dyspnea on exertion. Moderate in severity. Does improve with rest. She also has substernal chest pressure related to the shortness of breath. Her inhalers are not helping. She does use her nebulizer and does relieve some of the discomfort. She continues to use the BiPAP. The BiPAP has been affecting beneficial. However, she is waiting for replacement. She continues to get the IgG infusions at home. Does also have been very effective for her. The plan is for her to continue that therapy. Also to note she had a complete cardiac workup including cardiac cath and per report it was ok. The patient is still having dyspnea symptoms. She continues her respiratory therapy although she has not been using the inhalers as much because it causes worsens and thrush. Therefore she stopped the trelegy. We did review her PFTs demonstrating a reversible obstruction with significant response to bronchodilators. Therefore, I do think that she needs to be on a maintenance inhaler and therefore will provide her Symbicort with spacer hopefully she can tolerate a smaller does without the adverse effects with rest that she typically gets. The patient is has been getting her IgG infusions and Her BiPAP therapy has been affecting beneficial is no issues with that. 08/19/2023 the patient is here for pulmonary follow-up visit. The patient is feeling a lot better. She is now back to her baseline. She continues use her respiratory therapy. We did review her imaging studies including a CT of the chest demonstrating no acute disease. She still gets these episodes of cough and productive in nature difficult to expectorate the phlegm. She get a Acapella valve but does not seem to be working effectively. She tried gxer-guf-kivekyl Mucinex the high dose to see if this is helpful in providing good mucus clearance. If not she is going to try to get a sputum culture. She has left than on the CT scan of the chest that I see that is concerning. She continues to receive the IVIG every 3 weeks without any issues. Her blood pressure seems to be doing better. As far as vaccinations he has got all her vaccines except for the RT vaccine. She will get that as well as possible. Otherwise follow-up in 6 months. 01/25/2024 the patient is here for a pulmonary follow-up visit. Overall she is doing okay although she has had issues with her insurance. The patient did have a worsening cough over the winter. With thick tenacious mucus difficult to clear. She almost call the office but she has not to. The symptoms did improve with time. She continues use her respiratory therapy. Now Symbicort is no longer covered by her insurance. Initially weight Center Breo since she was already on Incruse. There was a question about the powder inhalers so then we sent her Dulera as well. Now she has a lot of different inhalers. We need to make sure that she does not over medicate. Therefore I did spend some time with her explaining to her which inhalers to use. She will continue with her Symbicort until she runs out. Then after that she can switch over to Breo and continue using her Incruse. If she tolerates the Breo and Incruse well then we can consider poorly seeing her on Trelegy in the future. If she does not tolerate the powder inhaler then at that point she can try the Dulera. She will call if issues arise. In the meantime she continues with the IVIG infusions every 3 weeks. In addition to that she has been on the BiPAP therapy the BiPAP therapy has been affecting beneficial. She does use it for more than 4 hours a night. No issues with the mask or response to therapy. 05/22/2024 the patient is here for sick visit. Apparently the end the April she developed COVID-19. The patient did take Paxlovid. Subsequently after that she did have rebound symptoms and she was having worsening respiratory symptoms. She then tested positive again. The patient continue conservative therapy. She also was taking Mucinex. She continues use her respiratory therapy as prescribed. She also required additional cortical steroid therapy to decrease the inflammation of the airways. The patient is no better. She still having to use her nebulizer 3 to 4 times a day. Just before the visit today she did do a couple treatments. Still feels chest tightness and wheezing. I did offer her Solu-Medrol intramuscularly however, the patient does have diabetes and that will cause her to have significantly elevated sugars. Therefore, will go ahead and start her on antibiotics. She already completed a course of doxycycline. Also will give another course of Medrol. She can continue to use her respiratory therapy as prescribed. The patient also has new inhalers and we did discuss them. If the patient is no better she will call otherwise will follow-up in July during her regular follow-up visit. [facility] Medical History (Updated 05/22/24 @ 20:13 by Delfino Osorio MD) Asbestos exposure Hypogammaglobulinemia BRIDGET treated with BiPAP Asthma Social History Patient Tobacco Use Status: Never used Tobacco Review of Systems Const Reports fatigue and Denies night sweats ENT Denies change in voice, Denies lip swelling, Denies mouth pain, Reports nasal congestion, Reports nasal discharge and Denies tongue swelling Card Reports dyspnea on exertion Resp Reports chest congestion, Reports cough, Denies pain on inspiration, Reports dyspnea on exertion and Reports wheezing GI Denies abdominal pain Musc Denies no additional complaints Neuro Denies Neuro-related abnormal movements Psych Denies no additional complaints Endo Reports fatigue Preston/Lymph Denies easy bleeding and Denies lymphadenopathy Aller/Immun Denies lip swelling, Denies tongue swelling and Reports wheezing Physical Exam Vital Signs: Last Vital Signs Pulse 90 05/22/24 10:41 BP 128/60 05/22/24 10:41 Pulse Ox 96 05/22/24 10:41 Oxygen Delivery Method Room Air 05/22/24 10:41 BMI result Body Mass Index 44.4 Const General: comfortable and alert HEENT General nose exam: Abnormal external nose present and Nasal discharge present Eyes Pupils: Equal, round and reactive pupils present Neck Neck: Yes normal visual inspection, Yes full ROM and Yes no lymphadenopathy Chest Chest palpation & inspection: normal inspection of the chest Resp Effort & Inspection: normal respiratory effort, Actively coughing and prolonged expiratory phase Auscultation: wheezes and diminished lung sounds Cardio Rate: regular rate Rhythm: regular rhythm Heart sounds: S1 normal heart sound present and S2 normal heart sound present GI Palpation (GI): Soft to palpation and nontender Auscultation: normal bowel sounds General: Yes no CVA tenderness Back/Spine/Pelvis Back: no CVA tenderness Skin General skin exam: rashes and/or lesions noted Neuro Cranial nerves: Yes Equal, round and reactive pupils present Assessment & Plan Assessment & Plan (1) Asthma: Code(s): J45.909 - Unspecified asthma, uncomplicated Category: Medical Qualifiers: Asthma complication type: with acute exacerbation Asthma persistence: persistent Asthma severity: moderate Qualified Code(s): J45.41 - Moderate persistent asthma with (acute) exacerbation (2) BRIDGET treated with BiPAP: Code(s): G47.33 - Obstructive sleep apnea (adult) (pediatric) Category: Medical (3) Hypogammaglobulinemia: Code(s): D80.1 - Nonfamilial hypogammaglobulinemia Category: Medical (4) Asbestos exposure: Code(s): Z77.090 - Contact with and (suspected) exposure to asbestos Category: Medical (5) Bronchitis: Code(s): J40 - Bronchitis, not specified as acute or chronic Category: Medical Plan start Dulera BID continue Incruse daily ION as needed IVIG every 3 weeks, should get pretreatment to avoid/minimize reactions start Augmentin start medrol taper, monitor BS continue mucinex DM Continue BIPAP F/U Jul 2024 Medications: New methylprednisolone (Medrol) Take 1 tab 3 times a day x 3 days, then 1 tab twice a day x 3 days, then 1 tab daily x 3 days 4 mg PO DAILY 18 tabs 0RF amoxicillin-pot clavulanate 875-125 mg 1 tab PO BID 20 tabs 0RF 10 days Refilled Incruse Ellipta 62.5 mcg/actuation (umeclidinium) 1 inh PO DAILY 3 ea 3RF 90 days NS Coding Level of Care Code Est Pt Level 4 (70506) Diagnoses Moderate persistent asthma with acute exacerbation J45.41 Asthma complication type: with acute exacerbation Asthma persistence: persistent Asthma severity: moderate BRIDGET treated with BiPAP G47.33 Hypogammaglobulinemia D80.1 Asbestos exposure Z77.090 Bronchitis J40 Time Spent (min) 16
[2024-05-22 10:41] VITALS: BP 128/60; PULSE 90; O2SAT 96; BMI 44.4
== END 2024-05-22 11:24 | disposition home or self-care (01) ==
PROVIDERS: PCP Physician Assistant Medical; Visit Provider Hospitalist
DX: J45.41 Moderate persistent asthma with (acute) exacerbation (principal); G47.33 Obstructive sleep apnea (adult) (pediatric); D80.1 Nonfamilial hypogammaglobulinemia; Z77.090 Contact with and (suspected) exposure to asbestos; J40 Bronchitis, not specified as acute or chronic
CPT/HCPCS: 99214

== ENCOUNTER → 2024-05-22 10:36 | Outpatient (BNVA) | payer MEDICARE, SELFPAY | PROVIDERS: PCP Physician Assistant Medical; Visit Provider Hospitalist | DX: J45.41 Moderate persistent asthma with (acute) exacerbation (principal); D80.1 Nonfamilial hypogammaglobulinemia; J40 Bronchitis, not specified as acute or chronic; G47.33 Obstructive sleep apnea (adult) (pediatric); Z77.090 Contact with and (suspected) exposure to asbestos; Z99.89 Dependence on other enabling machines and devices | CPT/HCPCS: 99212 ==

== ENCOUNTER 2024-08-01 11:14 | Outpatient (REF) | payer MEDICARE, SELFPAY | END 2024-08-01 11:15 | disposition home or self-care (01) | LOC: HO.XRAY 11:14 | PROVIDERS: PCP Physician Assistant Surgical; Visit Provider Hospitalist | DX: J44.9 Chronic obstructive pulmonary disease, unspecified (principal); J45.41 Moderate persistent asthma with (acute) exacerbation; G47.33 Obstructive sleep apnea (adult) (pediatric); D80.1 Nonfamilial hypogammaglobulinemia; Z77.090 Contact with and (suspected) exposure to asbestos; J40 Bronchitis, not specified as acute or chronic; J38.3 Other diseases of vocal cords | CPT/HCPCS: 71046; 99212 ==

== ENCOUNTER 2024-08-01 11:14 | Outpatient (AMB) | payer MEDICARE, SELFPAY ==
[2024-08-01 11:21] VITALS: BP 110/52; PULSE 73; O2SAT 98; BMI 42.9
--- NOTE | 2024-08-01 11:21 | MHC.OFFVIS ---
Vital Signs 08/01/24 11:21 Height 5 ft 1 in Weight 227 lb BMI 42.9 BP 110/52 L Blood Pressure Location Rt brachial Pulse 73 Pulse Source Pulse Oximeter Pulse Oximetry (%) 98 Oxygen Delivery Method Room Air Intake Visit Reasons: Asthma Allergies Tape Allergy (Severe, Uncoded 08/01/24 11:23) Itching HPI Comments Details: The patient is 73 y/o woman with a history of moderate severe asthma in addition to BRIDGET on BiPAP and hypogammaglobulinemia receiving IgG infusions every 3 weeks. She gets chills at home. She has been complaining of worsening dyspnea on exertion. Moderate in severity. Does improve with rest. She also has substernal chest pressure related to the shortness of breath. Her inhalers are not helping. She does use her nebulizer and does relieve some of the discomfort. She continues to use the BiPAP. The BiPAP has been affecting beneficial. However, she is waiting for replacement. She continues to get the IgG infusions at home. Does also have been very effective for her. The plan is for her to continue that therapy. Also to note she had a complete cardiac workup including cardiac cath and per report it was ok. The patient is still having dyspnea symptoms. She continues her respiratory therapy although she has not been using the inhalers as much because it causes worsens and thrush. Therefore she stopped the trelegy. We did review her PFTs demonstrating a reversible obstruction with significant response to bronchodilators. Therefore, I do think that she needs to be on a maintenance inhaler and therefore will provide her Symbicort with spacer hopefully she can tolerate a smaller does without the adverse effects with rest that she typically gets. The patient is has been getting her IgG infusions and Her BiPAP therapy has been affecting beneficial is no issues with that. 08/19/2023 the patient is here for pulmonary follow-up visit. The patient is feeling a lot better. She is now back to her baseline. She continues use her respiratory therapy. We did review her imaging studies including a CT of the chest demonstrating no acute disease. She still gets these episodes of cough and productive in nature difficult to expectorate the phlegm. She get a Acapella valve but does not seem to be working effectively. She tried flae-tyr-qiqwovo Mucinex the high dose to see if this is helpful in providing good mucus clearance. If not she is going to try to get a sputum culture. She has left than on the CT scan of the chest that I see that is concerning. She continues to receive the IVIG every 3 weeks without any issues. Her blood pressure seems to be doing better. As far as vaccinations he has got all her vaccines except for the RT vaccine. She will get that as well as possible. Otherwise follow-up in 6 months. 01/25/2024 the patient is here for a pulmonary follow-up visit. Overall she is doing okay although she has had issues with her insurance. The patient did have a worsening cough over the winter. With thick tenacious mucus difficult to clear. She almost call the office but she has not to. The symptoms did improve with time. She continues use her respiratory therapy. Now Symbicort is no longer covered by her insurance. Initially weight Center Breo since she was already on Incruse. There was a question about the powder inhalers so then we sent her Dulera as well. Now she has a lot of different inhalers. We need to make sure that she does not over medicate. Therefore I did spend some time with her explaining to her which inhalers to use. She will continue with her Symbicort until she runs out. Then after that she can switch over to Breo and continue using her Incruse. If she tolerates the Breo and Incruse well then we can consider poorly seeing her on Trelegy in the future. If she does not tolerate the powder inhaler then at that point she can try the Dulera. She will call if issues arise. In the meantime she continues with the IVIG infusions every 3 weeks. In addition to that she has been on the BiPAP therapy the BiPAP therapy has been affecting beneficial. She does use it for more than 4 hours a night. No issues with the mask or response to therapy. 05/22/2024 the patient is here for sick visit. Apparently the end the April she developed COVID-19. The patient did take Paxlovid. Subsequently after that she did have rebound symptoms and she was having worsening respiratory symptoms. She then tested positive again. The patient continue conservative therapy. She also was taking Mucinex. She continues use her respiratory therapy as prescribed. She also required additional cortical steroid therapy to decrease the inflammation of the airways. The patient is no better. She still having to use her nebulizer 3 to 4 times a day. Just before the visit today she did do a couple treatments. Still feels chest tightness and wheezing. I did offer her Solu-Medrol intramuscularly however, the patient does have diabetes and that will cause her to have significantly elevated sugars. Therefore, will go ahead and start her on antibiotics. She already completed a course of doxycycline. Also will give another course of Medrol. She can continue to use her respiratory therapy as prescribed. The patient also has new inhalers and we did discuss them. If the patient is no better she will call otherwise will follow-up in July during her regular follow-up visit. 08/01/2024 the patient is here for a pulmonary follow-up visit. Overall she is doing okay. Does complaint of hoarseness and some difficulty with layering sometimes gets a little ?tight?. Likely related to vocal cord dysfunction. We did talk about different triggers that could potentially be worsening that. She does use Dulera. Will go ahead and switch over to Dulera with a spacer to try to minimize irritation from the inhalers themselves. In the meantime she feels like she has some little lesions on her back with the throat. I did look. They look like follicles will likely secondary to chronic postnasal drip. However, because her immunodeficiency would not be unreasonable to place her on chlorhexidine mouthwash. As far as her cough she continues have productive cough consistent with chronic bronchitis. She has already maximizing her respiratory therapy. We did talk about Daliresp as an option but, she is going to start Ozempic soon nasal at 0 1 start him to many medications that can affect her GI system. In addition to that she can try the new Ohtuvayre nebulized solution that she could use twice a day to try to minimize the respiratory symptoms. I will have her read up on to see if this something she wants to try. Otherwise she will continue on the current respiratory regimen. We did talk about her vaccines which once she needs to do. She continues to use her BiPAP at nighttime. She does use it for more than 4 hours a night. In addition to that she continues on the IVIG therapy. If any issues arise she will call for earlier assessment. [facility] Medical History (Updated 08/05/24 @ 18:07 by Delfino Osorio MD) Vocal cord dysfunction Asbestos exposure Hypogammaglobulinemia BRIDGET treated with BiPAP Asthma Social History (Updated 08/01/24 @ 11:27 by Maryuri Muniz [facility]) Patient Tobacco Use Status: Former Tobacco user Years Smoked: 20 Review of Systems Const Reports fatigue and Denies night sweats ENT Denies change in voice, Reports hoarseness, Denies lip swelling, Denies mouth pain, Reports nasal congestion, Reports nasal discharge and Denies tongue swelling Card Reports dyspnea on exertion Resp Reports cough, Denies pain on inspiration, Reports dyspnea on exertion and Reports wheezing GI Denies abdominal pain Musc Denies no additional complaints Neuro Denies Neuro-related abnormal movements Psych Denies no additional complaints Endo Reports fatigue Preston/Lymph Denies easy bleeding and Denies lymphadenopathy Aller/Immun Denies lip swelling, Denies tongue swelling and Reports wheezing Physical Exam Vital Signs: Last Vital Signs Pulse 73 08/01/24 11:21 BP 110/52 L 08/01/24 11:21 Pulse Ox 98 08/01/24 11:21 Oxygen Delivery Method Room Air 08/01/24 11:21 BMI result Body Mass Index 42.9 Const General: comfortable and alert HEENT General nose exam: Abnormal external nose present and Nasal discharge present Throat: Yes posterior oropharynx abnormal (erythema and lymphoid follicles) and Yes cobblestoning Eyes Pupils: Equal, round and reactive pupils present Neck Neck: Yes normal visual inspection, Yes full ROM and Yes no lymphadenopathy Chest Chest palpation & inspection: normal inspection of the chest Resp Effort & Inspection: normal respiratory effort and prolonged expiratory phase Auscultation: wheezes and diminished lung sounds Cardio Rate: regular rate Rhythm: regular rhythm Heart sounds: S1 normal heart sound present and S2 normal heart sound present GI Palpation (GI): Soft to palpation and nontender Auscultation: normal bowel sounds General: Yes no CVA tenderness Back/Spine/Pelvis Back: no CVA tenderness Skin General skin exam: rashes and/or lesions noted Neuro Cranial nerves: Yes Equal, round and reactive pupils present Assessment & Plan Assessment & Plan (1) Asthma: Code(s): J45.909 - Unspecified asthma, uncomplicated Category: Medical Qualifiers: Asthma complication type: with acute exacerbation Asthma persistence: persistent Asthma severity: moderate Qualified Code(s): J45.41 - Moderate persistent asthma with (acute) exacerbation (2) BRIDGET treated with BiPAP: Code(s): G47.33 - Obstructive sleep apnea (adult) (pediatric) Category: Medical (3) Hypogammaglobulinemia: Code(s): D80.1 - Nonfamilial hypogammaglobulinemia Category: Medical (4) Asbestos exposure: Code(s): Z77.090 - Contact with and (suspected) exposure to asbestos Category: Medical (5) Bronchitis: Code(s): J40 - Bronchitis, not specified as acute or chronic Category: Medical (6) Vocal cord dysfunction: Code(s): J38.3 - Other diseases of vocal cords Category: Medical Plan Dulera BID with spacer continue Incruse daily ION as needed CXR start chlorhexidine MW x 14 days IVIG every 3 weeks, should get pretreatment to avoid/minimize reactions continue mucinex DM Continue BIPAP F/U 4-6 months Orders: Orders XR chest 2V 08/01/24 Z77.090 - Contact with and (suspected) exposure to asbestos Medications: New chlorhexidine gluconate 0.12% 15 mL buccal BID 450 mL 0RF 14 days Coding Level of Care Code Est Pt Level 4 (92071) Complex EM visit Add On G2211 Diagnoses Moderate persistent asthma with acute exacerbation J45.41 Asthma complication type: with acute exacerbation Asthma persistence: persistent Asthma severity: moderate BRIDGET treated with BiPAP G47.33 Hypogammaglobulinemia D80.1 Asbestos exposure Z77.090 Bronchitis J40 Vocal cord dysfunction J38.3 Time Spent (min) 18
== END 2024-08-01 12:00 | disposition home or self-care (01) ==
PROVIDERS: PCP Physician Assistant Surgical; Visit Provider Hospitalist
DX: J45.41 Moderate persistent asthma with (acute) exacerbation (principal); G47.33 Obstructive sleep apnea (adult) (pediatric); D80.1 Nonfamilial hypogammaglobulinemia; Z77.090 Contact with and (suspected) exposure to asbestos; J40 Bronchitis, not specified as acute or chronic; J38.3 Other diseases of vocal cords
CPT/HCPCS: 99214; G2211

== ENCOUNTER 2024-10-30 08:15 | Outpatient (AMB) | payer MEDICARE, SELFPAY ==
--- NOTE | 2024-10-30 08:22 | MHC.OFFVIS ---
Vital Signs 10/30/24 08:23 Height 5 ft 1 in Weight 231 lb 7.766 oz BMI 43.7 BP 154/62 H Blood Pressure Location Rt brachial Position Sitting Pulse 82 Pulse Source Pulse Oximeter Pulse Oximetry (%) 98 Oxygen Delivery Method Room Air Intake Visit Reasons: bronchitis/pneumonia Allergies Tape Allergy (Severe, Uncoded 10/30/24 08:27) Itching HPI Comments Details: The patient is 73 y/o woman with a history of moderate severe asthma in addition to BRIDGET on BiPAP and hypogammaglobulinemia receiving IgG infusions every 3 weeks. She gets chills at home. She has been complaining of worsening dyspnea on exertion. Moderate in severity. Does improve with rest. She also has substernal chest pressure related to the shortness of breath. Her inhalers are not helping. She does use her nebulizer and does relieve some of the discomfort. She continues to use the BiPAP. The BiPAP has been affecting beneficial. However, she is waiting for replacement. She continues to get the IgG infusions at home. Does also have been very effective for her. The plan is for her to continue that therapy. Also to note she had a complete cardiac workup including cardiac cath and per report it was ok. The patient is still having dyspnea symptoms. She continues her respiratory therapy although she has not been using the inhalers as much because it causes worsens and thrush. Therefore she stopped the trelegy. We did review her PFTs demonstrating a reversible obstruction with significant response to bronchodilators. Therefore, I do think that she needs to be on a maintenance inhaler and therefore will provide her Symbicort with spacer hopefully she can tolerate a smaller does without the adverse effects with rest that she typically gets. The patient is has been getting her IgG infusions and Her BiPAP therapy has been affecting beneficial is no issues with that. 08/19/2023 the patient is here for pulmonary follow-up visit. The patient is feeling a lot better. She is now back to her baseline. She continues use her respiratory therapy. We did review her imaging studies including a CT of the chest demonstrating no acute disease. She still gets these episodes of cough and productive in nature difficult to expectorate the phlegm. She get a Acapella valve but does not seem to be working effectively. She tried [id number] Mucinex the high dose to see if this is helpful in providing good mucus clearance. If not she is going to try to get a sputum culture. She has left than on the CT scan of the chest that I see that is concerning. She continues to receive the IVIG every 3 weeks without any issues. Her blood pressure seems to be doing better. As far as vaccinations he has got all her vaccines except for the RT vaccine. She will get that as well as possible. Otherwise follow-up in 6 months. 01/25/2024 the patient is here for a pulmonary follow-up visit. Overall she is doing okay although she has had issues with her insurance. The patient did have a worsening cough over the winter. With thick tenacious mucus difficult to clear. She almost call the office but she has not to. The symptoms did improve with time. She continues use her respiratory therapy. Now Symbicort is no longer covered by her insurance. Initially weight Center Breo since she was already on Incruse. There was a question about the powder inhalers so then we sent her Dulera as well. Now she has a lot of different inhalers. We need to make sure that she does not over medicate. Therefore I did spend some time with her explaining to her which inhalers to use. She will continue with her Symbicort until she runs out. Then after that she can switch over to Breo and continue using her Incruse. If she tolerates the Breo and Incruse well then we can consider poorly seeing her on Trelegy in the future. If she does not tolerate the powder inhaler then at that point she can try the Dulera. She will call if issues arise. In the meantime she continues with the IVIG infusions every 3 weeks. In addition to that she has been on the BiPAP therapy the BiPAP therapy has been affecting beneficial. She does use it for more than 4 hours a night. No issues with the mask or response to therapy. 05/22/2024 the patient is here for sick visit. Apparently the end the April she developed COVID-19. The patient did take Paxlovid. Subsequently after that she did have rebound symptoms and she was having worsening respiratory symptoms. She then tested positive again. The patient continue conservative therapy. She also was taking Mucinex. She continues use her respiratory therapy as prescribed. She also required additional cortical steroid therapy to decrease the inflammation of the airways. The patient is no better. She still having to use her nebulizer 3 to 4 times a day. Just before the visit today she did do a couple treatments. Still feels chest tightness and wheezing. I did offer her Solu-Medrol intramuscularly however, the patient does have diabetes and that will cause her to have significantly elevated sugars. Therefore, will go ahead and start her on antibiotics. She already completed a course of doxycycline. Also will give another course of Medrol. She can continue to use her respiratory therapy as prescribed. The patient also has new inhalers and we did discuss them. If the patient is no better she will call otherwise will follow-up in July during her regular follow-up visit. 08/01/2024 the patient is here for a pulmonary follow-up visit. Overall she is doing okay. Does complaint of hoarseness and some difficulty with layering sometimes gets a little ?tight?. Likely related to vocal cord dysfunction. We did talk about different triggers that could potentially be worsening that. She does use Dulera. Will go ahead and switch over to Dulera with a spacer to try to minimize irritation from the inhalers themselves. In the meantime she feels like she has some little lesions on her back with the throat. I did look. They look like follicles will likely secondary to chronic postnasal drip. However, because her immunodeficiency would not be unreasonable to place her on chlorhexidine mouthwash. As far as her cough she continues have productive cough consistent with chronic bronchitis. She has already maximizing her respiratory therapy. We did talk about Daliresp as an option but, she is going to start Ozempic soon nasal at 0 1 start him to many medications that can affect her GI system. In addition to that she can try the new Ohtuvayre nebulized solution that she could use twice a day to try to minimize the respiratory symptoms. I will have her read up on to see if this something she wants to try. Otherwise she will continue on the current respiratory regimen. We did talk about her vaccines which once she needs to do. She continues to use her BiPAP at nighttime. She does use it for more than 4 hours a night. In addition to that she continues on the IVIG therapy. If any issues arise she will call for earlier assessment. 10/30/2024 the patient is here for sick visit. She started developing worsening respiratory symptoms last week. Started developing significant chest tightness and cough. Can not sleep at nighttime. Moderate to severe. She is very tired and weak. She went to the [facility] ER where she has tested for COVID RSV and flu which all negative. She had an x-ray which I personally reviewed demonstrating some airway changes and some congestion to the right base. Likely some component of bronchitis with only pneumonia. She was given a course of doxycycline. The patient still no better she is actually feeling worse. She has significant wheezing on exam. Were given to treatments with levalbuterol and she will receive Solu-Medrol. In addition to that will probably expand her antibiotic regimen. [facility] Medical History (Updated 08/05/24 @ 18:07 by Delfino Osorio MD) Vocal cord dysfunction Asbestos exposure Hypogammaglobulinemia BRIDGET treated with BiPAP Asthma Social History (Updated 08/01/24 @ 11:27 by Maryuri Muniz [facility] Patient Tobacco Use Status: Former Tobacco user Years Smoked: 20 Review of Systems Const Reports fatigue and Denies night sweats ENT Denies change in voice, Reports hoarseness, Denies lip swelling, Denies mouth pain, Reports nasal congestion, Reports nasal discharge and Denies tongue swelling Card Reports dyspnea and Reports dyspnea on exertion Resp Reports chest congestion, Reports cough, Denies pain on inspiration, Reports dyspnea, Reports dyspnea on exertion and Reports wheezing GI Denies abdominal pain Musc Denies no additional complaints Neuro Denies Neuro-related abnormal movements Psych Denies no additional complaints Endo Reports fatigue Preston/Lymph Denies easy bleeding and Denies lymphadenopathy Aller/Immun Denies lip swelling, Denies tongue swelling and Reports wheezing Physical Exam Vital Signs: Last Vital Signs Pulse 82 10/30/24 08:23 BP 154/62 H 10/30/24 08:23 Pulse Ox 98 10/30/24 08:23 Oxygen Delivery Method Room Air 10/30/24 08:23 BMI result Body Mass Index 43.7 Const General: comfortable and alert HEENT General nose exam: Abnormal external nose present and Nasal discharge present Throat: Yes posterior oropharynx abnormal (erythema and lymphoid follicles) and Yes cobblestoning Eyes Pupils: Equal, round and reactive pupils present Neck Neck: Yes normal visual inspection, Yes full ROM and Yes no lymphadenopathy Chest Chest palpation & inspection: normal inspection of the chest Resp Effort & Inspection: normal respiratory effort and prolonged expiratory phase Auscultation: rhonchi, wheezes and diminished lung sounds Cardio Rate: regular rate Rhythm: regular rhythm Heart sounds: S1 normal heart sound present and S2 normal heart sound present GI Palpation (GI): Soft to palpation and nontender Auscultation: normal bowel sounds General: Yes no CVA tenderness Back/Spine/Pelvis Back: no CVA tenderness Skin General skin exam: rashes and/or lesions noted Neuro Cranial nerves: Yes Equal, round and reactive pupils present Office Procedures Nebulizer Treatment Nebulizer Treatment [id number] RX initial, or Nebulizer Subsequent Treatment Office Meds methylprednisolone sod suc(PF) 125 mg/2 mL solution for injection Performing Provider: Delfino Osorio MD Performing Location: [facility] Administered by: Joanna Tavarez LPN on 10/30/24 09:01 Dose Route Admin Location Dispensed Lot Number Expiration Date [facility] [employer] 125 mg IM R buttock 1 ea [id number] 09/04/26 3086-6041-88 [employer] levalbuterol HCl 1.25 mg/3 mL solution for nebulization Performing Provider: Delfino Osorio MD Performing Location: [facility] Administered by: Joanna Tavarez LPN on 10/30/24 09:01 Dose Route Admin Location Dispensed Lot Number Expiration Date [place] [employer] 1.25 mg inhalation 3 mL [id number] 11/02/25 14105-597-04 [employer] Assessment & Plan Assessment & Plan (1) Asthma: Code(s): J45.909 - Unspecified asthma, uncomplicated Category: Medical Qualifiers: Asthma complication type: with acute exacerbation Asthma persistence: persistent Asthma severity: moderate Qualified Code(s): J45.41 - Moderate persistent asthma with (acute) exacerbation (2) BRIDGET treated with BiPAP: Code(s): G47.33 - Obstructive sleep apnea (adult) (pediatric) Category: Medical (3) Hypogammaglobulinemia: Code(s): D80.1 - Nonfamilial hypogammaglobulinemia Category: Medical (4) Asbestos exposure: Code(s): Z77.090 - Contact with and (suspected) exposure to asbestos Category: Medical (5) Bronchitis: Code(s): J40 - Bronchitis, not specified as acute or chronic Category: Medical (6) Vocal cord dysfunction: Code(s): J38.3 - Other diseases of vocal cords Category: Medical Plan continue Doxycycline start Vantin Solumedrol 125mg IM x 1, then Prednisone taper. Needs to monitor BS Cough medicine Dulera BID with spacer continue Incruse daily ION as needed IVIG every 3 weeks, should get pretreatment to avoid/minimize reactions continue mucinex DM Continue BIPAP F/U 2 months Orders: Orders AMB Methylprednisolone Sod Succ Injection Today J40 - Bronchitis, not specified as acute or chronic AMB Nebulizer Treatment Today J40 - Bronchitis, not specified as acute or chronic Medications: New prednisone PO daily; Take 2 tabs daily x 5 days, then 1 tablet daily x 5 days 15 tabs 0RF 10 days cefpodoxime must administer with a meal/food 200 mg PO BID 20 tabs 0RF ipratropium bromide administer into each nostril 2 sprays intranasal TID PRN 15 mL 6RF allergy symptoms codeine-guaifenesin 10-100 mg/5 mL 10 mL PO Q6H PRN 300 mL 0RF cough 10 days nystatin swish and swallow 2 mL PO TID 84 mL 2RF 14 days Changed From ipratropium-albuterol 0.5 mg-3 mg(2.5 mg base)/3 mL 3 mL inhalation BID PRN J44.9 - Chronic obstructive pulmonary disease, unspecified To ipratropium-albuterol 0.5 mg-3 mg(2.5 mg base)/3 mL 3 mL inhalation QID 360 mL 6RF 30 days J44.9 - Chronic obstructive pulmonary disease, unspecified Coding Level of Care Code Est Pt Level 4 (31135) Complex EM visit Add On G2211 Diagnoses Moderate persistent asthma with acute exacerbation J45.41 Asthma complication type: with acute exacerbation Asthma persistence: persistent Asthma severity: moderate BRIDGET treated with BiPAP G47.33 Hypogammaglobulinemia D80.1 Asbestos exposure Z77.090 Bronchitis J40 Vocal cord dysfunction J38.3 CPT Codes Nebulizer Treatment - Nebulizer Treatment, initial or subsequent: [id number] RX initial, or Nebulizer Subsequent Treatment ([id number]) Time Spent (min) 18
[2024-10-30 08:23] VITALS: BP 154/62; PULSE 82; O2SAT 98; BMI 43.7
--- OUTSIDE RECORDS SUMMARY | 2024-10-30 08:37 | XMS_ITS | Clinical Summary ---
Author Organization [address] [facility] Address [address] [place] [address] Phone Care Team Providers Care Brass Sorter Name Role Phone Unavailable Primary Care Provider Unavailabl e Allergies Active Allergy Reactions Criticality Noted Date Comments Adhesive Tape-Silicones 12/18/2014 Other Reaction(s): Rash/Dermatitis Medications olmesartan (BENICAR) 20 mg tablet Take 1 tablet (20 mg total) by mouth 1 (one) time each day. 3 Active diclofenac (VOLTAREN) 1 % topical gel Apply 4 g topically 4 times daily as needed for Other (arthritis pain). 3 Active omeprazole (PriLOSEC) [address] capsule Take 1 capsule (40 mg total) by mouth 1 (one) time each day. 3 Active metFORMIN XR (GLUCOPHAGE-XR) 500 mg 24 hr tablet Take 1 tablet (500 mg total) by mouth 1 (one) time each day with breakfast. 4 Active levothyroxine (SYNTHROID, LEVOTHROID) 175 mcg tablet Take 1 tablet daily from Tuesday to Tuesday. 4 Active fluticasone propionate (FLONASE) 50 mcg/actuation nasal spray 2 Sprays by Each Nare route daily. 4 Active blood sugar diagnostic (FreeStyle Lite Strips) test strip Use to test blood sugar once daily 4 Active FREESTYLE LANCETS MISC Use to test blood sugar once daily 4 Active biotin 10 mg tablet Take 1 Tablet by mouth daily. Active cholecalciferol (VITAMIN D-3) 25 mcg (1,000 unit) capsule Take 1 capsule (1,000 Units total) by mouth 1 (one) time each day. Active fluticasone furoate-vilante roL (Breo Ellipta) 200-25 mcg/dose inhaler 4 Active simvastatin (ZOCOR) 40 mg tablet Take 1 Tablet by mouth at bedtime. 4 Active aspirin 81 mg EC tablet Take 1 tablet (81 mg total) by mouth 1 (one) time each day. Active amphetamine-dex troamphetamine (ADDERALL) 30 mg tablet Take 1 tablet (30 mg total) by mouth 1 (one) time each day. Max Daily Amount: 30 mg Active immune globulin, human, (Gamunex-C) 10 % solution infusion Inject 4 Bottles as directed. With 5 mg Active montelukast (SINGULAIR) 10 mg tablet Take 1 Tablet by mouth at bedtime. 2 Active ipratropium-alb uteroL (DUONEB) 0.5-2.5 mg/3 mL nebulizer solution Inhale 3 mL into the lungs 4 times daily. 2 Active umeclidinium (Incruse Ellipta) 62.5 mcg/actuation inhalation Inhale into the lungs. Active immune globulin, human, (Gamunex-C) infusion Inject 45 g as directed. 1 bottle every 3 weeks Active modafiniL (PROVIGIL) 100 mg tablet Take 2 Tablets by mouth 2 times daily. 2 tabs Active multivitamin (MULTIPLE VITAMINS ORAL) Take 1 Tab by mouth daily. Active mometasone-form oterol (DULERA 200) 200-5 mcg/actuation inhaler Inhale 2 Puffs into the lungs 2 Times Daily. - Inhalation Active amoxicillin (AMOXIL) 500 mg capsule Take 4 Capsules by mouth as needed. One 1hr prior to dentist procedure - Oral Active Active Problems Problem Noted Date Diagnosed Date Abnormal Doppler ultrasound of carotid artery Left upper arm pain 07/24/2024 Carpal tunnel syndrome of left wrist 07/05/2024 Overview (07/05/2024): surgery 2012? Bilateral carotid artery stenosis 08/05/2023 Overview (07/05/2024): Last Assessment & Plan: Unchanged carotid bruit on exam today; no symptoms concerning for worsening disease. We will continue to monitor with serial imaging as appropriate. 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 These symptoms are not quite typical for subclavian artery stenosis. However, she does have a systolic blood pressure discrepancy of approximately 20 points on recheck today with the left arm being lower than the right. As such, we will have her undergo a CTA of the head and neck for further evaluation of subclavian artery stenosis; we will readdress this as needed. The patient is aware to have her creatinine level updated within 30 days of the procedure; a lab slip was provided to her for this today. Cholesterol is now well-controlled with consistent use of simvastatin on increased dosing. She is aware to seek emergent attention for any significant color changes in the left upper extremity as well as increased claudication symptoms or rest pain. Asthma-COPD overlap syndrome 06/17/2023 Overview (07/05/2024): Last Assessment & Plan: The patient has close follow-up planned with her criminal attorney regarding her recent pulmonary illness; she has completed her second course of antibiotics and is finishing up her second course of prednisone at present. She is aware that once she has completed the prednisone and is feeling better from this recent illness then any shortness of breath with exertion may be indicative of underlying cardiac disease and should be reported immediately, at which time a stress test may be indicated. Hyperlipidemia 06/17/2023 Overview (07/05/2024): Last Assessment & Plan: The patient's most recent lipid panel completed 2023 reveals an LDL of 51 which is at goal for this patient has both coronary artery disease as well as diabetes. Continue statin at current dose. Shortness of breath 06/17/2023 History of 2019 novel coronavirus disease (COVID -19) 04/19/2022 Overview (07/05/2024): 02/19/22 Received [address]held [address] [facility] for Covid-19 protection. 03/24/22 Tested positive for Covid. I contacted Dr. Hilliard , my Special Education Preschool Teacher from [employer]. ??He put me on PaxLovid 3 pills daily for 5 days. Began 5 days of quarantine and started PaxLovid on 03/24/22. 04/01/22 Tested negative 04/03/22 Tested positive again. Had Covid rebound. Contacted staffing consultant doctor at [facility] covering for Dr. Hilliard. Was advised to remain in quarantine for additional 5 days then if no symptoms wear mask for 5 days in public. No further medication needed. 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 Abbott) Nipple discharge 10/20/2020 Overview (07/05/2024): Last Assessment & Plan: Discussed differential diagnosis of unilateral nipple discharge. Diagnostic mammogram and breast ultrasound ordered, to be scheduled by patient. Patient to follow-up for annual exam. CKD (chronic kidney disease) stage 3, GFR 30-59 ml/min 05/23/2019 Episode of recurrent major depressive disorder 0 09/28/2018 Asbestos-induced pleural plaque 12/12/2017 Chronic obstructive pulmonary disease (COPD) 03/2017 Nephrotic syndrome with morphologic change 05/12 Obstructive sleep apnea syndrome in adult 2016 Bacterial vaccines causing a dverse effect in therapeutic use 01/06/2017 Fibromyalgia 10/23/2015 Gluten-responsive sprue 06/20/2015 Primary immunodeficiency syndrome 06/20/2015 Overview (07/05/2024): Followed by dhruv hilliard at [facility] Diabetes mellitus type 2 with neurological manif estations 01/10/2014 Coronary artery disease invo lving [place] coronary artery of [place] heart without angina pectoris 11/20/2013 Overview (07/05/2024): Last Assessment & Plan: The patient offers no anginal symptoms to cause concern for underlying ischemia or the need for further testing. Continue aspirin and statin. Patient advised to seek emergency medical attention by calling 911 if they were to develop severe dyspnea, chest pain that did not resolve with rest, or if they were to faint. Asthma 10/16/2013 Overview (07/05/2024): Followed by dr valderrama [facility] Hypothyroid 12/16/2011 GERD (gastroesophageal reflux disease) 2 HTN (hypertension) 08/05/2011 Overview (07/05/2024): Last Assessment & Plan: The patient was noted to have blood pressure discrepancies between her 2 arms today; she did have findings of subclavian artery stenosis on July 2023 carotid duplex. Given her recent left arm symptoms, she is willing to undergo CTA head/neck for further evaluation of the stenosis and to ensure it is not contributing to the blood pressure discrepancy. We will not make any changes today but we will readdress this after CT is completed. I have reviewed with the patient the importance of a heart healthy lifestyle which includes eating a low-fat low-salt diet, getting regular exercise, maintaining a healthy weight, not smoking, and following up with routine medical care. Narcolepsy 08/05/2011 Overview (07/05/2024): Please see note dated 09/16/11 for more details followed by sleep medicine Encounters Date Type Department Care Team Description 08/30/2024 7:37 AM EST - 08/30/2024 11:59 PM EST Hospital Encounter [facility] CT Scan [address] [place] [address] Abnormal Doppler ultrasound of carotid artery; Left upper arm pain Discharge Disposition: Home or Self Care 08/10/2024 Telephone [facility] - [address] [place] [address] Erasmo Heredia MD Appointment (CTA Head/Neck) 08/06/2024 12:30 PM EST Ancillary Procedure [facility] - [address] [place] [address] Bilateral carotid bruits; Coronary artery disease involving [place] coronary artery of [place] heart without angina pectoris; Subclavian artery stenosis, left (CMS/HCC); Left arm pain; Morbid obesity with BMI of 45.0-49.9, adult (CMS/HCC); Bilateral carotid artery stenosis from Last 3 Months Immunizations Name Administration Dates Next Due Influenza trivalent, 0.5mL ( Fluad) 65yo and older 06/29/2023,06/25/2019,06/28/2017 Influenza trivalent, 0.5mL, preservative free (Fluarix; FluLaval; Fluzone) ages 6mo and older (Afluria) 3 years and older 06/12/2015,06/05/2013 Influenza trivalent, with preservative (Fluzone; Afluria) 6mo and older 06/22/2016,07/04/2008 Influenza, Unspecified 06/20/2023,2021,05/12/2021,2019,07/06/2018,06/28/2017 Moderna (age 6mo & older) Bi valent, COVID-19, 0.5 mL or 0.25 mL dosage 07/12/2022 Moderna SARS-CoV-2 COVID-19, mRNA, LNP-S, preservative free 09/01/2023,04/23/2021,12/13/2020,2020 Pneumococcal conjugate 13 va lent (Prevnar 13, PCV13) 2mo and older 12/28/2016,12/07/2016 Respiratory syncytial virus (RSV), unspecified 10/06/2023 Td Tetanus diptheria (Tdvax) 7yo and older 11/19/2022 Tdap Tetanus diptheria acell ular pertussis (Boostrix; Adacel) 7yo and older 10/31/2012 Zoster recombinant (Shingrix ) 19yo and older 08/20/2020,08/06/2020 Surgical History Surgery Date Site/Laterality Comments TONSILLECTOMY PROCEDURE: HISTORICAL TONSILLECTOMY CHOLECYSTECTOMY 1977 PROCEDURE: HISTORICAL CHOLECYSTECTOMY SECTION PROCEDURE: HISTORICAL DELIVERY OTHER SURGICAL HISTORY PROCEDURE: ---- OTHER ----; COMMENT: trigger finger, anal fissure CARPAL TUNNEL RELEASE PROCEDURE: HISTORICAL CARPAL TUNNEL REL TOTAL KNEE ARTHROPLASTY 2006 PROCEDURE: HISTORICAL TOTAL KNEE REPLACE; COMMENT: Bilateral, bilateral total knee revision 2022 UPPER GASTROINTESTINAL ENDOSCOPY 09/2017 PROCEDURE: LA UPPER GI ENDOSCOPY PERFORMED OTHER SURGICAL HISTORY 03/02/2022 PROCEDURE: UPPER GI ENDOSCOPY, REMOVE LESION; COMMENT: Small hiatal hernia nonbleeding nodules with benign appearance dr. brown Medical History Medical History Date Comments HTN (hypertension) 08/05/2011 DX:HTN (hyper tension) Hypothyroid 12/16/2011 DX:Hypothyroid Carpal tunnel syndrome of left wrist DX:Carpal tunnel syndrome of left wrist; COMMENT: surgery 2012? Fibromyalgia 10/23/2015 DX:Fibromyalgia Narcolepsy 08/05/2011 DX:Narcolepsy; C OMMENT: Please see note dated 09/16/11 for more details followed by sleep medicine Asthma 10/16/2013 DX:Asthma; COMME NT: Followed by dr valderrama [facility] Obstructive sleep apnea synd errol in adult 05/12/2017 DX:Obstructive sleep apnea s yndrome in adult Nephrotic syndrome with morp hologic change 05/12/2017 DX:Nephrotic syndrome with morphologic change Diabetes mellitus type 2 wit h neurological manifestations (CMS/HCC) 01/10/2014 DX:Diabetes nilo itus type 2 with neurological manifestations ([facility]) History of diverticulitis 01/29/2015 DX:His tory of diverticulitis; COMMENT: 06/17 GERD (gastroesophageal reflu x disease) 11/15/2011 DX:GERD (gastroesophageal re flux disease) Gluten-responsive sprue 06/20/2015 DX:Glute n-responsive sprue Bacterial vaccines causing a dverse effect in therapeutic use 01/06/2017 DX:Bacterial vaccines causin g adverse effect in therapeutic use Primary immunodeficiency syn drome ([facility]) 06/20/2015 DX:Primary immunodeficiency syndrome ([facility]); COMMENT: Followed by dhruv hilliard at [facility] Chronic obstructive pulmonar y disease (COPD) ([facility]) 05/12/2017 DX:Chronic obstructive pulmo nary disease (COPD) ([facility]) Asbestos-induced pleural plaque 12/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 Morbid obesity with BMI of 4 5.0-49.9, adult ([facility]) 08/30/2013 DX:Morbid obesity with BMI o f 45.0-49.9, adult ([facility]) Family History Medical History Relation Name Comments No Known Problems Brother No Known Problems Daughter Other: Alzgopi's Father at age 7 0 No Known Problems Maternal Grandfather No Known Problems Maternal Grandmother Arthritis Mother No Known Problems Other No Known Problems Paternal Grandfather No Known Problems Paternal Grandmother No Known Problems Sister 1 No Known Problems Sister 2 No Known Problems Sister 3 No Known Problems Sister 4 Breast cancer Neg Hx Relation Name Status Comments Brother Alive htn Daughter Father (Age 70's) divertic ulitis, htn, cad, parkinsons Maternal Grandfather Maternal Grandmother Mother (Age 80's) htn, sep sis, chf,cad Other Paternal Grandfather Paternal Grandmother Sister 1 Alive htn dementia Sister 2 Alive hth dementia Sister 3 Alive htn Sister 4 Alive htn Social History Tobacco Use Types Packs/Day Years Used Date Smoking Tobacco: Former Cigarettes 0 09/28/1969 - 09/05/1989 Smokeless Tobacco: Never Alcohol Use Standard Drinks/Week Comments No 0 (1 standard drink = 0.6 oz pur e alcohol) Comments Unknown Sex and Gender Information Value Date Recorded Sex Assigned at Female 08/12/2024 1:48 PM EST Legal Sex Female 1:22 PM EST Gender Identity Female 08/12/2024 1:48 PM EST Sexual Orientation Straight 08/12/2024 1: 48 PM EST Obstetrics History Last Filed Vital Signs Vital Sign Reading Time Taken Comments Blood Pressure 140/60 07/04/2024 11:14 AM EDT Si tting R Arm Pulse 75 07/04/2024 11:03 AM EDT Temperature - - Respiratory Rate - - Oxygen Saturation - - Inhaled Oxygen Concentration - - Weight 109 kg (240 lb) 07/04/2024 11:03 AM EDT Height 154.9 cm (5' 1 ) 07/04/2024 11:03 AM EDT Body Mass Index 45.35 07/04/2024 11:03 AM EDT Plan of Treatment Upcoming Encounters Date Type Department Care Team (Late st Contact Info) Description 01/25/2025 8:40 AM EDT Office Visit [facility] [address] [facility] [address] [place] [address] Marisa Patel, CRISTINA [address] [facility] [address] [place] [address] Health Maintenance Due Date Last Done Comments Diabetes: Annual Foot Exam 1960 Hepatitis A Vaccines (1 of 2 - Risk 2-dose series) 11/30/1967 Hepatitis B Vaccines (1 of 3 - Risk 3-dose series) 2008 Pneumococcal Vaccine: 50+ Years (3 of 3 - PPSV23, PCV20 or PCV21) 02/22/2017 12/28/2016, 12/07/2016, 08/05/1996 Zoster Vaccines (2 of 2) 10/15/2020 08/20/2020, 10/2019 Colorectal Cancer Screening: Colonoscopy 08/14/2022 Social Influencers of Health Screening 08/14/2022 RSV Immunization Patients 60+ Years Old (1 - 1-dose 75+ series) 11/30/2023 10/06/2023 Diabetes: Annual Retina Eye Exam 08/31/2024 08/31/2023 Falls Risk Assessment 10/07/2024 10/07/2023 Diabetes: Blood Sugar Control Test (HGBA1C) 11/22/2024 05/25/2024, 05/25/2024, 03/22/2024 Depression Screening 03/26/2025 03/26/2024 Medicare Annual Wellness Visit 03/26/2025 03/26/2024 Diabetes: Annual Urine Albumin-Creatinine Ratio (uACR) 05/25/2025 05/25/2024 Diabetes: Annual GFR (Glomerular Filtration Rate) 07/19/2025 07/19/2024, 07/05/2024, 05/25/2024, Additional history exists Hypertension/CHF/CAD Annual BMP Blood Test 07/19/2025 07/19/2024, 07/05/2024, 05/25/2024, Additional history exists Osteoporosis Screening (Bone Density Screening) 11/06/2026 11/06/2021 Cholesterol Screening (Lipid Panel) 05/25/2029 05/25/2024, 05/25/2024, 03/22/2024 DTaP,Tdap,and Td Vaccines (4 - Td or Tdap) 11/19/2032 11/19/2022, 10/31/2012, 07/17/2007 MMR Vaccines Aged Out 10/27/2009 No longer eligi ble based on patient's age to complete this topic Hepatitis C Screening Completed 11/14/2018 RSV Immunization Patients Under 20 months Aged Out 10/06/2023 No longer eligible based on patient's age to complete this topic Breast Cancer Screening Discontinued 12/01/19 24, 11/23/2022, 08/25/2021, Additional history exists Influenza Vaccine Completed 07/05/2024, , 06/20/2023, Additional history exists COVID-19 Vaccine Completed 07/26/2024, , 09/01/2023, Additional history exists HIB Vaccines Aged Out No longer eligi ble based on patient's age to complete this topic HPV Vaccines Aged Out No longer eligi ble based on patient's age to complete this topic IPV Vaccines Aged Out No longer eligi ble based on patient's age to complete this topic Meningococcal ACWY Vaccine Aged Out N o longer eligible based on patient's age to complete this topic Meningococcal B Vacine Aged Out No lo nger eligible based on patient's age to complete this topic Varicella Vaccines Aged Out No longer eligible based on patient's age to complete this topic Procedures Procedure Name Priority Date/Time Associated Diagnosis Comments CT ANGIO HEAD/NECK WO AND/OR W CONTRAST Routine 08/30/2024 8:12 AM EST Abnormal Doppler ultrasound of carotid artery Left upper arm pain VAS US DUPLEX UPPER EXT ARTERY BILAT Routine 08/06/2024 1:02 PM EST Bilateral carotid bruits Coronary artery disease involving [place] coronary artery of [place] heart without angina pectoris Subclavian artery stenosis, left (CMS/HCC) Left arm pain Morbid obesity with BMI of 45.0-49.9, adult (CMS/HCC) Bilateral carotid artery stenosis BASIC METABOLIC PANEL Routine 07/19/2024 11:31 AM EST Body mass index 45.0-49.9, adult (CMS/HCC) URINE ALBUMIN CREATININE RATIO Routine 05/25/2024 HEMOGLOBIN A1C Routine 05/25/2024 LIPID PANEL Routine 05/25/2024 DEPRESSION SCREENING Routine 03/26/2024 SCREENING MAMMOGRAPHY BI 2-VIEW BREAST INC CAD Routine 12/01/2023 9:21 AM EDT Encounter for screening mammogram for malignant neoplasm of breast FALLS RISK ASSESSMENT Routine 10/07/2023 DIABETES EYE EXAM Routine 08/31/2023 DXA BONE DENSITY STUDY 1+ SITS AXIAL SKEL Routine 11/06/2021 2:17 PM EST Type 2 diabetes mellitus with diabetic polyneuropathy (CMS/HCC) Fatty (change of) liver, not elsewhere classified Chronic kidney disease, stage 3a (CMS/HCC) Localized edema Major depressive disorder, recurrent, unspecified (CMS/HCC) Chronic obstructive pulmonary disease, unspecified (CMS/HCC) Obstructive sleep apnea (adult) (pediatric) Nephrotic syndrome with unspecified morphologic changes Fibromyalgia HEPATITIS C SCREENING Routine 11/14/2018 from Last 3 Months or Most Recently Relevant to Health Maintenance Results * CT Angio Head/Neck wo and/or w Contrast (08/30/2024 8:12 AM EST) Anatomical Region Laterality Modality Head and Neck Computed Tomogra phy 08/30/2024 8:56 AM EST Impressions 08/30/2024 9:19 AM EST 1. ??The left subclavian artery is partially obscured by streak artifact. ??There is no visible subclavian stenosis. 2. ??Scattered atherosclerotic plaque. ??No hemodynamically significant stenosis or occlusion. -------- FINAL REPORT -------- Dictated By: Ej Vela Dictated Date: 08/30/2024 08:56 ET Assigned Physician: Ej Vela Reviewed and Electronically Signed By: Ej Vela Signed Date: 08/30/2024 09:19 ET Workstation ID: [id number] Transcribed By: Self Edit Transcribed Date: 08/30/2024 08:57 ET Narrative 08/30/2024 9:[address] angiogram of the neck and pilot point of [place] and delayed postcontrast CT of the brain, 08/30/2024. HISTORY: abnormal carotid duplex suggesting left subclavian stenosis. COMPARISON: 01/25/2024. TECHNIQUE: CT angiogram of the neck and pilot point of [place]de with multiplanar reformats. Delayed postcontrast images of the brain were also obtained. IV contrast dose: 90 mL [id number]. Dose length product: ??1750 mGy-cm. FINDINGS: Brain: No hemorrhage, edema, mass, or extra-axial fluid collection. ??No CT evidence of an acute large vessel infarct. ??Ventricles and sulci are age commensurate. CTA: Moderate atherosclerotic calcification of the aortic arch. ??Standard three-vessel arch configuration. ??The left subclavian artery is partially obscured by streak artifact from the contrast bolus in the adjacent vein. ??There is no visible subclavian arterial stenosis. ??Scattered atherosclerotic calcifications throughout the carotids without an associated hemodynamically significant stenosis. ??Codominant vertebral arteries. ??Calcified plaque at the right vertebral artery origin with suggestion of a mild associated stenosis. The basilar artery and informatics spec are widely patent. ??Calcified plaque in the carotid siphons without a significant associated stenosis. ??Mild diffuse atherosclerotic irregularity of the anterior and middle cerebral arteries without a significant stenosis. ??No evidence of an aneurysm or vascular malformation. ??Patent dural venous sinuses. Orbits: Lens implants. Sinuses/mastoids: Normal. Calvarium: Hyperostosis frontalis interna. Other: Diminutive or absent thyroid gland. ??Moderate degenerative changes of the cervical spine. ??Torus palatini. Procedure Note Ej Vela MD - 08/30/2024 CT angiogram of the neck and pilot point of Conde and delayed postcontrast CTof the brain, 08/30/2024. HISTORY: abnormal carotid duplex suggesting left subclavian stenosis. COMPARISON: 01/25/2024. TECHNIQUE: CT angiogram of the neck and pilot point of Conde with multiplanarreformats. Delayed postcontrast images of the brain were also obtained. IV contrast dose: 90 mL ISOVUE-370. Dose length product: 1750 mGy-cm. FINDINGS: Brain: No hemorrhage, edema, mass, or extra-axial fluid collection. No CTevidence of an acute large vessel infarct. Ventricles and sulci are agecommensurate. CTA: Moderate atherosclerotic calcification of the aortic arch. Standardthree- vessel arch configuration. The left subclavian artery is partiallyobscured by streak artifact from the contrast bolus in the adjacent vein.There is no visible subclavian arterial stenosis. Scatteredatherosclerotic calcifications throughout the carotids without anassociated hemodynamically significant stenosis. Codominant vertebralarteries. Calcified plaque at the right vertebral artery origin withsuggestion of a mild associated stenosis. The basilar artery and informatics spec are widely patent. Calcified plaque in thecarotid siphons without a significant associated stenosis. Mild diffuseatherosclerotic irregularity of the anterior and middle cerebral arterieswithout a significant stenosis. No evidence of an aneurysm or vascularmalformation. Patent dural venous sinuses. Orbits: Lens implants. Sinuses/mastoids: Normal. Calvarium: Hyperostosis frontalis interna. Other: Diminutive or absent thyroid gland. Moderate degenerative changesof the cervical spine. Torus palatini. IMPRESSION: 1. The left subclavian artery is partially obscured by streak artifact.There is no visible subclavian stenosis. 2. Scattered atherosclerotic plaque. No hemodynamically significantstenosis or occlusion. -------- FINAL REPORT -------- Dictated By: Ej Vela Dictated Date: 08/30/2024 08:56 ET Assigned Physician: Ej Vela Reviewed and Electronically Signed By: Ej Vela Signed Date: 08/30/2024 09:19 ET Workstation ID: [id number] Transcribed By: Self Edit Transcribed Date: 08/30/2024 08:57 ET us Erasmo Heredia MD IMG CT PROCEDURES Final Result * Vascular US duplex upper extremity arteries bilateral (08/06/2024 1:02 PM EST) Upper arterial left arm axillary sys max 119 cm/s CV [facility] LAB UPPER ARTERIAL LEFT BRACHIAL DIST PSV 99 cm/s CV V[facility] LAB UPPER ARTERIAL LEFT RADIAL DISTAL PSV 72 cm/s CV [facility] LAB Left Dist Subclavian PSV 144 cm/s CV V[facility] LAB Left Prox Subclavian PSV 202 cm/s CV V[facility] LAB UPPER ARTERIAL LEFT ULNAR DISTAL PSV 96 cm/s [facility] Left vertebral sys 85 cm/s CV [facility] LAB Anatomical Region Laterality Modality Vascular, Abdomen Ultrasound Narrative 08/24/2024 7:47 PM EST Left: Triphasic waveforms throughout the left upper extremity. No significant stenosis within the left subclavian artery, axillary, brachial, radial or ulnar arteries. Antegrade vertebral artery flow. Left Upper Arterial Duplex The subclavian artery has triphasic flow. The axillary artery has triphasic flow. The brachial artery has triphasic flow. The radial artery has triphasic flow. The ulnar artery has triphasic flow. [place] Details A shoemaker scale, color and doppler analysis ultrasound was performed. During the study longitudinal views were obtained. Pulsed wave doppler was performed. Overall the study quality was good. us Erasmo Heredia MD CV VASCULAR PROCEDURES Final Re sult * (ABNORMAL) Basic metabolic panel (07/19/2024 11:31 AM EST) Sodium 139 133 - 145 mmol/L LAB CHEMISTRY METHOD 07/19/2024 2:49 PM EST [facility] Potassium 4.0 3.5 - 5.5 mmol/L LAB CHEMISTRY METHOD 07/19/2024 2:49 PM [facility] Chloride 103 96 - 110 mmol/L LAB CHEMISTRY METHOD 07/19/2024 2:49 PM [facility] CO2 31 21 - 32 mmol/L LAB CHEMISTRY METHOD 07/19/2024 2:49 PM [facility] Anion Gap 5 3 - 11 LAB CHEMISTRY METHOD 07/19/2024 2:49 PM [facility] Glucose 113(H) 70 - 100 mg/dL LAB CHEMISTRY METHOD 07/19/2024 2:49 PM [facility] BUN 14 5 - 25 mg/dL LAB CHEMISTRY METHOD 07/19/2024 2:49 PM [facility] Creatinine 0.95 0.50 - 1.10 mg/dL LAB CHEMISTRY METHOD 07/19/2024 2:49 PM [facility] eGFR 63 >=60 mL/min/1. 73m2 LAB CHEMISTRY METHOD 07/19/2024 2:49 PM [facility] Comment:Calculation based on the??Chronic Kidney Disease Epidemiology Collaboration (CKD-EPI) equation refit??without adjustment for race. BUN/Creatinine Ratio 14.7 LAB CHEMISTRY METHOD 07/19/2024 2:49 PM [facility] Calcium 9.9 8.5 - 10.5 mg/dL LAB CHEMISTRY METHOD 07/19/2024 2:49 PM [facility] Blood Venous blood specimen / Unknown Venipuncture / Unknown 07/19/2024 11:31 AM EST 07/19/2024 12:07 PM EST us Erasmo Heredia MD LAB BLOOD ORDERABLES Final Resu lt [facility] [address] [place] [address], * Urine Albumin Creatinine Ratio (05/25/2024) Pathologist [facility] Urine Albumin Creatinine Ratio abstracted Result [facility] HEALTH MAINTENANCE Final Result * (ABNORMAL) Hemoglobin A1c (05/25/2024) [facility] Hemoglobin A1C 6.6(A) <=6.5 % Blood Venous blood specimen / Unknown Result [facility] LAB BLOOD ORDERABLES Nika l Result * (ABNORMAL) Lipid panel (05/25/2024) [facility] LDL/HDL Ratio 3 0 - 4 Triglycerides 161(A) 0 - 150 mg/dL Cholesterol 150 0 - 200 mg/dL HDL 53 >=40 mg/dL LDL Cholesterol 65 0 - 100 mg/dL Blood Venous blood specimen / Unknown Result [facility] LAB BLOOD ORDERABLES Nika l Result * Depression Screening (03/26/2024) [facility] Depression Screening abstracted Result [facility] Final Result * SCREENING MAMMOGRAPHY BI 2-VIEW BREAST INC CAD (12/01/2023 9:21 AM EDT) Anatomical Region Laterality Modality Radiographic Jessica ging 11/23/2022 7:49 AM EDT Narrative 12/01/2023 2:20 PM EDT This is a summary report. The complete report is available in the patient's medical record. If you cannot access the medical record, please contact the sending organization for a detailed fax or copy. Study: SCREENING MAMMOGRAPHY BI 2-VIEW BREAST INC CAD Technique: Bilateral full-field digital screening mammography is obtained and read in conjunction with computer aided detection. ??Tomosynthesis as well as 2D C-View imaging were obtained. Comparison: Comparison made to multiple prior, most recent November 23, 2022, and most remote September 30, 2016. Breast composition: There are scattered areas of fibroglandular density. Bilateral breasts: No significant masses, suspicious calcifications or other abnormalities are seen in either breast. IMPRESSION: Impression: Bilateral breasts: Negative, no specific mammographic evidence of malignancy. ??Normal interval follow-up is recommended in 12 months. BI-RADS: Category 1: Negative Procedure Note Ab Alcantara MD - 04/23/2024 This is a summary report. The complete report is available in thepatient's medical record. If you cannot access the medical record, pleasecontact the sending organization for a detailed fax or copy. Study: SCREENING MAMMOGRAPHY BI 2-VIEW BREAST INC CAD Technique: Bilateral full-field digital screening mammography is obtainedand read in conjunction with computer aided detection. Tomosynthesis aswell as 2D C-View imaging were obtained. Comparison: Comparison made to multiple prior, most recent November 23, 2022,and most remote September 30, 2016. Breast composition: There are scattered areas of fibroglandular density. Bilateral breasts: No significant masses, suspicious calcifications orother abnormalities are seen in either breast. IMPRESSION: Impression: Bilateral breasts: Negative, no specific mammographic evidence ofmalignancy. Normal interval follow-up is recommended in 12 months. BI-RADS: Category 1: Negative Justice VARGAS IMG XR PROCEDURES Final R esult * Falls Risk Assessment (10/07/2023) Pathologist [facility] Falls Risk Assessment abstracted Historical Provider HEALTH MAINTENANCE Final Result * Diabetes Eye Exam (08/31/2023) Pathologist [facility] Diabetes: Annual Retina Eye Exam abstracted [facility] Provider HEALTH MAINTENANCE Final Result * DXA BONE DENSITY STUDY 1+ SITS AXIAL SKEL (11/06/2021 2:17 PM EST) Anatomical Region Laterality Modality Bone Densitometr y 10/21/2021 11:1 9 AM EST Narrative 11/09/2021 1:23 PM EST BONE DENSITY (DEXA) ? Lumbar Spine T-score is 2.0. ?? (SD relative to 20-29 y/o adult) Z-score is 4.3. ??(SD relative to age matched peers) This is considered normal by WHO criteria. Left Hip T-score is 1.0. Z-score is 3.0. This is considered normal by WHO criteria. IMPRESSION: This patient is scheduled to have normal bone density by WHO criteria. The [facility] Department of Internal Medicine recommends using National Osteoporosis Foundation (NOF) guidelines in treatment decisions related to osteoporosis. NOF guidelines suggest considering treatment for postmenopausal women and men aged 50 or older presenting with the following: History of hip or vertebral fracture. T-score = -2.5 (DXA) at the femoral neck, total hip, or spine, after appropriate evaluation to exclude secondary causes. Low bone mass (T-score between -1.0 and -2.5 at the femoral neck or spine) AND a 10-year probability of a hip fracture = 3% OR a 10-year probability of a major osteoporosis-related fracture = 20% based on the [place]-adapted WHO algorithm Please note that all treatment decisions require clinical judgment and consideration of individual patient factors, including patient preferences, co-morbidities, previous drug use, risk factors not captured in the FRAX model (e.g., frailty, falls, vitamin D deficiency, increased bone turnover, interval significant decline in bone density) and possible under- or over-estimation of fracture risk by FRAX. Optional alternative screening schedule based on channing Maravilla., [facility] September 23, 2011 for patients with osteopenia (based on hip BMD T-score) is as follows: * ??advanced osteopenia (T scores -2.00 to -2.49), BMD testing every year * ??moderate osteopenia (T scores -1.50 to -1.99), BMD testing every 5 years mild osteopenia or normal BMD (T scores -1.50 and higher), BMD testing every 15 years Procedure Note Mari Hunter MD - 08/24/2022 BONE DENSITY (DEXA) Lumbar Spine T-score is 2.0. (SD relative to 20-29 y/o adult) Z-score is 4.3. (SD relative to age matched peers) This is considered normal by WHO criteria. Left Hip T-score is 1.0. Z-score is 3.0. This is considered normal by WHO criteria. IMPRESSION: This patient is scheduled to have normal bone density by WHO criteria. The [facility] Department of Internal Medicine recommendsusing National Osteoporosis Foundation (NOF) guidelines in treatment decisions related toosteoporosis. NOF guidelines suggest considering treatment for postmenopausal women and menaged 50 or older presenting with the following: History of hip or vertebral fracture. T-score = -2.5 (DXA) at the femoral neck, total hip, or spine, afterappropriate evaluation to exclude secondary causes. Low bone mass (T-score between -1.0 and -2.5 at the femoral neck or spine)AND a 10-year probability of a hip fracture = 3% OR a 10-year probability of a majorosteoporosis-related fracture = 20% based on the [place]-adapted WHO algorithm Please note that all treatment decisions require clinical judgment andconsideration of individual patient factors, including patient preferences, co- morbidities,previous drug use, risk factors not captured in the FRAX model (e.g., frailty, falls, vitaminD deficiency, increased bone turnover, interval significant decline in bone density) andpossible under- or over-estimation of fracture risk by FRAX. Optional alternative screening schedule based on channing Maravilla., [facility] for patients with osteopenia (based on hip BMD T-score) is as follows: * advanced osteopenia (T scores -2.00 to -2.49), BMD testing every year * moderate osteopenia (T scores -1.50 to -1.99), BMD testing every 5years mild osteopenia or normal BMD (T scores -1.50 and higher), BMD testingevery 15 years Justice VARGAS [facility] DXA PROCEDURES Final Result * Hepatitis C Screening (11/14/2018) [facility] Hepatitis C Screening abstracted Historical Provider HEALTH MAINTENANCE Final Result from Last 3 Months or Most Recently Relevant to Health Maintenance Insurance MEDICARE 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
== END 2024-10-30 09:13 | disposition home or self-care (01) ==
PROVIDERS: PCP Physician Assistant Surgical; Visit Provider Hospitalist
DX: J45.41 Moderate persistent asthma with (acute) exacerbation (principal); G47.33 Obstructive sleep apnea (adult) (pediatric); D80.1 Nonfamilial hypogammaglobulinemia; Z77.090 Contact with and (suspected) exposure to asbestos; J40 Bronchitis, not specified as acute or chronic; J38.3 Other diseases of vocal cords
CPT/HCPCS: 99214; G2211

== ENCOUNTER → 2024-10-30 08:15 | Outpatient (BNVA) | payer MEDICARE, SELFPAY | PROVIDERS: PCP Physician Assistant Surgical; Visit Provider Hospitalist | DX: J45.41 Moderate persistent asthma with (acute) exacerbation (principal); J40 Bronchitis, not specified as acute or chronic; J38.3 Other diseases of vocal cords; G47.33 Obstructive sleep apnea (adult) (pediatric); D80.1 Nonfamilial hypogammaglobulinemia; Z77.090 Contact with and (suspected) exposure to asbestos | CPT/HCPCS: 94640; 96372; 99212; J2919 ==

== ENCOUNTER 2024-11-07 14:48 | Outpatient (REF) | payer MEDICARE, SELFPAY ==
--- NOTE | ~2024-11-07 | XR_ITS ---
EXAMINATION: XR CHEST 2 VIEWS HISTORY: J40 - Bronchitis, not specified as acute or chronic COMPARISON: Comparison is made with the prior examination dated 08/01/2024. FINDINGS: PA and lateral views of the chest are submitted. The lungs are expanded and clear. There is no pleural effusion, pneumothorax, or pulmonary vascular congestion. The heart is normal in size. The aorta is calcified. There is degenerative disc disease of the spine. XR/XR chest 2V IMPRESSION: No acute cardiopulmonary abnormality. Electronically signed by: Gurmeet Bustillo MD 11/09/2024 03:09 PM [facility]AL[facility]
--- OUTSIDE RECORDS SUMMARY | 2024-11-07 17:55 | XMS_ITS | Clinical Summary ---
Author Organization [facility] Address [address] [place] [address] Care Team Providers Care Grain Spouter Name Role Phone Mitch Gonzalez Primary Care Provider [phone] Allergies Active Allergy Reactions Criticality Noted Date Comments Immun Glob G(Igg)-Gly-Iga Ov50 Hives,Angioedema High 12/25/2020 Discontinued Gamunex-C. ??Trial of Gammagard here in the infusion suite went well. After her reaction, the particular lot of Gamunex C that she had received was recalled by the puller through secondary to reports of allergic reactions in other patients also. Medications FREESTYLE MAXIM MISC Use as directed 3 times a day Active montelukast (SINGULAIR) 10 mg tablet Take 10 mg by mouth nightly. Active amoxicillin (AMOXIL) 500 mg capsule TAKE 4 CAPSULES BY MOUTH 1 HOUR BEFORE APPOINTMENT 6 Active inhalational spacing device AeroChamber MV Miscellaneous Use spacer with inhalers as instructed. Quantity: 1; Refills: 5 DEVAN MEREDITH MD; Started Active 4 Active multivitamin (THERAGRAN) tablet Take 1 tablet by mouth. Active omeprazole (PriLOSEC) 40 mg capsule Take 40 mg by mouth daily. Active fluticasone propionate (FLONASE) 50 mcg/actuation nasal spray Administer 2 sprays into each nostril daily. 16 g 11 9 Active modafinil (PROVIGIL) 100 mg tablet Take 1 tablet (100 mg total) by mouth daily. 9 Active immune globulin, human (Gammagard S-D, IgA < 1 mcg/mL,) 5% (10 g/200 mL) recon soln 45 g IV every 3 weeks. Drug provided by [facility]. Nursing through infusion plus. 1 Active budesonide-for moteroL (Symbicort) 80-4.5 mcg inhaler Active amphetamine-de xtroamphetamin e XR (ADDERALL XR) 25 mg capsule 2 Active ipratropium-al buteroL (DUO-NEB) 0.5-2.5 mg/3 mL nebulizer solution Ipratropium-Albut mariam 0.5-2.5 (3) MG/3ML Inhalation Solution USE 1 UNIT DOSE IN NEBULIZER EVERY 4 HOURS NEEDED. Quantity: 2; Refills: 0 PRIYANK KAUR M.D.; Started 15-Oct-2013 Active3 ML Vial (60 Vials) 4 Active simvastatin (ZOCOR) 20 mg tablet Simvastatin 20 MG Oral Tablet TAKE 1 TABLET DAILY. Quantity: 30; Refills: 0 DEVAN MEREDITH MD; Started Active 4 Active umeclidinium (INCRUSE ELLIPTA) 62.5 mcg/actuation blister with device Active EPINEPHrine (EPIPEN) 0.3 mg/0.3 mL injection syringe Inject 1 Syringe (0.3 mg total) into the outer thigh muscle as directed once for 1 dose. 0.3 mL 4 Active ipratropium (ATROVENT) 0.03% nasal spray Administer 2 sprays into each nostril 3 times a day as needed for rhinitis. As needed for nasal drip 30 mL 11 5 Active olmesartan-hyd rochlorothiazi de (BENICAR HCT) 40-25 mg per tablet Take 1 tablet by mouth once a day. 5 Active levothyroxine (SYNTHROID, LEVOTHROID) 137 mcg tablet Take 1 tablet (137 mcg total) by mouth daily. 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 Hypothyroidism 03/23/2009 Hypogammaglobulinemia 03/23/2009 Osteoarthritis 03/23/2009 Obesity 03/23/2009 Narcolepsy 03/23/2009 Fibromyalgia 03/23/2009 Esophageal reflux 03/23/2009 Asthma 03/23/2009 Resolved Problems Problem Noted Date Diagnosed Date Resolved Date COVID-19 virus infection 03/24/2022 Adverse effect of immunoglobulin 11/20/2020 09/22/2023 Encounters Date Type Department Care Team Description 10/30/2024 Telephone [facility] [address] [place] [id number] Senior Advisor: Priyank Cornejo MD Krinzman/Medication Question 09/25/2024 1:20 PM [facility] Telehealth [facility] [address] [place] [id number] Senior Advisor: Priyank Cornejo MD Hypogammaglobulinemia (Primary Dx); Allergic rhinitis, unspecified seasonality, unspecified trigger from Last 3 Months Immunizations Immunization Administration Dates Next Due Covid-19 Monovalent Vaccine, Moderna, mRNA, PF 12/13/2020,11/15/2020 Covid-19, Moderna, mRNA, Biv alent Booster, Pf, 10 Mcg/0.2 mL dose (for age 6 mo-5y) 07/12/2022 Covid-19, Moderna, mRNA, Vac cine, PF, 50 mcg/0.5 mL (for age 12 y and up) 09/01/2023 Immune Globulin, Intravenous 12/22/2020, 12/22/2020,12/22/2020,12/22,12/22/2020,12/22/2020,12/01/2020 ,12/01/2020,12/01/2020,12/01/2020,11/04,12/01/2020,12/01/2020 Influenza, High Dose Seasona l, Preservative Free 06/25/2019,06/28/2017 Influenza, High Dose Seasona l, Quadrivalent PF 05/12/2021 Influenza, Injectable, Quadr ivalent Preservative Free 06/23/2020 Influenza, Injectable, Quadr ivalent, Preservative Free 07/06/2018 Influenza, Trivalent, MDV, Injectable 06/22/2016 ,06/12/2015,06/05/2013 Influenza, Unspecified 06/24/2020,07/06/2018, Pneumococcal Conjugate Vacci ne, 13 Valent 12/28/2016,12/07/2016 Pneumococcal Polysaccharide Vaccine, 23 Valent 08/05/1996 Tetanus Toxoid, Reduced Diph theria Toxoid, and Acellular Pertussis Vaccine, Adsorbed 10/31/2012 Zoster Vaccine Recombinant 08/20/2020,08/06/2020 Family History Medical History Relation Name Comments Other Father Denied Family H istory of asthma /Denied Family history of Immune deficiency disorder Other Mother Denied Family H istory of asthma /Denied Family history of Immune deficiency disorder Relation Name Status Comments Father Mother Social History Tobacco Use Types Packs/Day Years Used Date Smoking Tobacco: Former Cigarettes 1 1987 Smokeless Tobacco: Never Tobacco Cessation:Counseling Given: Not Answered Comments:: Comments Unknown Sex and Gender Information Value Date Recorded Sex Assigned at Female 11/18/2020 6:52 PM EDT Legal Sex Female 12:11 AM EDT Gender Identity Female 11/18/2020 6:52 PM EDT Sexual Orientation Straight 11/18/2020 6: 52 PM EDT Last Filed Vital Signs Vital Sign Reading Time Taken Comments Blood Pressure 156/59 09/22/2023 10:00 AM EST 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 Pulse 83 09/22/2023 10:00 AM EST Temperature 36.6 ??C (97.9 ??F) 02/19/2022 9 :46 AM EDT Respiratory Rate 20 09/22/2023 10:0 0 AM EST Oxygen Saturation 98% 09/22/2023 10: 00 AM EST Inhaled Oxygen Concentration - - Weight 109.3 kg (241 lb) 09/22/2023 10: 00 AM EST Height 157.5 cm (5' 2 ) 03/16/2019 11:0 3 AM EDT Body Mass Index 44.08 03/16/2019 11:03 AM EDT Plan of Treatment Health Maintenance Due Date Last Done Comments Cologuard 1948 Colon Cancer Screening 1950 Colonoscopy 1948 FOBT / Fit Test 1950 Hepatitis C Screening 1950 Sigmoidoscopy 1948 Osteoporosis Screening 1998 Zoster Vaccines (2 of 2) 10/15/2020 08/20/2020, 10/2019 Pneumococcal Vaccine: 50+ Years (3 of 3 - PCV20 or PCV21) 12/28/2021 12/28/2016, 12/07/2016, 08/05/1996 Alcohol/Substance Use Screening 09/05/2024 Depression Screening and Follow-Up 09/05/2024 Health Care Proxy Review 09/05/2024 Social Drivers of Health Annual Screening 09/05/2024 COVID-19 Vaccine ( season) 2025 07/26/2024, 09/01/2023, 09/01/2023, Additional history exists Basic Metabolic Panel 07/19/2025 07/19/2024 , 07/05/2024, 09/26/2023, Additional history exists DTaP,Tdap,and Td Vaccines (4 - Td or Tdap) 11/19/2032 11/19/2022, 10/31/2012, 07/17/2007 Mammogram Discontinued 10/27/2020, 10/27/2020 RSV Vaccine (60+ years old and patients) Completed 10/06/2023 Influenza Vaccine Completed 07/05/2024, , 06/20/2023, Additional history exists Hepatitis B Vaccines Aged Out No long er eligible based on patient's age to complete this topic Procedures * Due to [place] [employer]Tax law, this organization might not be sharing negative HIV tests. Procedure Name Priority Date/Time Associated Diagnosis Comments BASIC METABOLIC PANEL Routine 11/30/2008 12:01 AM EDT from Last 3 Months or Most Recently Relevant to Health Maintenance Results * Due to [place] ReachTax law, this organization might not be sharing negative HIV tests. * (ABNORMAL) Basic Metabolic Panel (11/30/2008 12:01 AM EDT) Sodium Blood 140 136 - 145 mmol/L [facility] Potassium Blood 4.0 3.5 - 5.3 mmol/L [facility] Chloride Blood 99 97 - 110 mmol/L [facility] Carbon Dioxide 31 24 - 32 mmol/L [facility] Gap 10 5 - 15 [facility] Glucose 127(H) 70 - 99 mg/dL [facility] BUN 15 7 - 23 mg/dL [facility] Creatinine 0.89 0.50 - 1.20 mg/dL [facility] eGFR Non- >60 >60 [facility] Comment: Units = mL/min/1.73 m2 Glomerular Filtration Rate (GFR) is estimated based on the IDMS-Traceable MDRD equation(NKDEP).For Americans multiply results by 1.210. Patients with CKD exhibit values less than 60mL/min/1.73 m2, while results less than 15mL/min/1.73 m2 are consistent with kidney failure. This MDRD equation is not recommended by NKDEP for drug-dosing purposes Calcium Blood 9.0 8.7 - 10.7 mg/dL [facility] 11/30/2008 12:0 1 AM EDT 11/30/2008 7:15 AM EDT us Morena Sousa LAB BLOOD ORDERABLES nal Result [facility] [address] [place] [address], from Last 3 Months or Most Recently Relevant to Health Maintenance Insurance [id number] [place] [address] MEDICARE BCBS MCR SUPP Advance Directives Documents on File Type Date Recorded Patient Electrologist Expl [facility] Care Proxy 09/22/2022 10:57 PM 02-2 Advance Directive 12/04/2008 12:00 AM [facility] dical Dec Making (Adv.Dir) Care Teams Grain Spouter Relationship Specialty Start Date End Date Mitch Gonzalez PA [address] [place] [address] PCP - General Emergency Medicine 06/25/24
--- OUTSIDE RECORDS SUMMARY | 2024-11-07 17:55 | XMS_ITS | Encounter Summary ---
Author Organization [facility] Address [address] [place] [address] Care Team Providers Care Process Laboratory Specialist Name Role Phone Mitch Gonzalez Primary Care Provider [phone] Encounter Details Date Type Department Care Team (Late st Contact Info) Description 09/21/2023 myChart Message Initial Department [address] [place] [address] Mychart, Generic Provider [address] [place], [place] [id number] Questionnaire Submission Social History Tobacco Use Types Packs/Day Years Used Date Smoking Tobacco: Former Cigarettes 1 960 - 1987 Smokeless Tobacco: Never Comments:: Comments Unknown Sex and Gender Information Value Date Recorded Sex Assigned at Female 11/18/2020 6:52 PM EDT Legal Sex Female 12:11 AM EDT Gender Identity Female 11/18/2020 6:52 PM EDT Sexual Orientation Straight 11/18/2020 6: 52 PM EDT documented as of this encounter Plan of Treatment Not on file documented as of this encounter Visit Diagnoses Not on filedocumented in this encounter Care Teams Process Laboratory Specialist Relationship Specialty Start Date End Date Mitch Gonzalez PA [address] [place] [address] PCP - General Emergency Medicine 06/25/24 documented as of this encounter
--- OUTSIDE RECORDS SUMMARY | 2024-11-07 17:55 | XMS_ITS | Clinical Summary ---
Author Organization [address] [facility] Address [address] [place] [address] Phone Care Team Providers Care Marble Cleaner Name Role Phone Unavailable Primary Care Provider [...] time each day. 3 Active metFORMIN XR (GLUCOPHAGE-XR ) 500 mg 24 hr tablet Take 1 [...] Take 1 Tablet by mouth daily. Active cholecalcifero l (VITAMIN D-3) 25 mcg (1,000 unit) capsule Take 1 capsule (1,000 Units total) by mouth 1 (one) time each day. Active fluticasone furoate-vilant Mickey (Breo Ellipta) 200-25 mcg/dose inhaler 4 Active aspirin 81 mg EC tablet Take 1 tablet (81 mg total) by mouth 1 (one) time each day. Active amphetamine-de xtroamphetamin e (ADDERALL) 30 mg tablet Take 1 tablet (30 mg total) by mouth 1 (one) time each day. Max Daily Amount: 30 mg Active immune globulin, human, (Gamunex-C) 10 % solution infusion Inject 4 Bottles as directed. With 5 mg Active montelukast (SINGULAIR) 10 mg tablet Take 1 Tablet by mouth at bedtime. 2 Active ipratropium-al buteroL (DUONEB) 0.5-2.5 mg/3 mL nebulizer solution Inhale [...] Take 1 Tab by mouth daily. Active mometasone-for moterol (DULERA 200) 200-5 mcg/actuation inhaler Inhale 2 Puffs into the lungs 2 Times Daily. - Inhalation Active amoxicillin (AMOXIL) 500 mg capsule Take 4 Capsules by mouth as needed. One 1hr prior to dentist procedure - Oral Active simvastatin (ZOCOR) 40 mg tablet Take 1 tablet (40 mg total) by mouth at bedtime. 90 tablet 1 5 Active simvastatin (ZOCOR) 40 mg tablet Take 1 Tablet by mouth at bedtime. 4 10/31/19 25 Discontinu ed(Reorder ) Active Problems Problem Noted Date Diagnosed Date [...] patient has close follow-up planned with her adaptive physical education teacher regarding her recent pulmonary illness; she has [...] 02/19/22 Received 2 shots of Evusheld at [facility] for Covid-19 protection. 03/24/22 Tested positive for Covid. I contacted Dr. Hilliard , my Manager Of Change from [place]. ??He put me on PaxLovid 3 pills daily for 5 days. Began 5 days of quarantine and started PaxLovid on 03/24/22. 04/01/22 Tested negative 04/03/22 Tested positive again. Had Covid rebound. Contacted production crew supervisor doctor at [facility] covering for [...] Overview (07/05/2024): Followed by dhruv hilliard at [facility] Diabetes mellitus type 2 with neurological manif estations 01/10/2014 Coronary artery disease invo lving [place] coronary artery of [place] heart without angina pectoris 11/20/2013 Overview (07/05/2024): [...] 10/16/2013 Overview (07/05/2024): Followed by dr valderrama [facility] Hypothyroid 12/16/2011 GERD (gastroesophageal [...] Encounters Date Type Department Care Team Description 10/31/2024 Telephone [facility] [place] [address] [place] [address] Erasmo Heredia MD Med Refill 08/30/2024 7:37 AM EST - 08/30/2024 11:59 PM EST Hospital Encounter [facility] CT Scan [address] [place] [phone] Abnormal Doppler ultrasound of carotid artery; Left upper arm pain Discharge Disposition: Home or Self Care 08/10/2024 Telephone [facility] [place] [address] [place] [address] Erasmo Heredia MD Appointment (CTA Head/Neck) from Last 3 Months Immunizations Name Administration [...] revision 2022 UPPER GASTROINTESTINAL ENDOSCOPY 09/2017 PROCEDURE: MD UPPER GI ENDOSCOPY PERFORMED OTHER SURGICAL HISTORY [...] DX:Asthma; COMME NT: Followed by dr valderrama [facility] Obstructive sleep apnea synd errol in adult 05/12/2017 DX:Obstructive sleep apnea s yndrome in adult Nephrotic syndrome with morp hologic change 05/12/2017 DX:Nephrotic syndrome with morphologic change Diabetes mellitus type 2 wit h neurological manifestations (CMS/HCC) 01/10/2014 DX:Diabetes nilo itus type 2 with neurological manifestations (HCC) History of diverticulitis 01/29/2015 DX:His tory of diverticulitis; COMMENT: 06/17 GERD (gastroesophageal reflu x disease) 11/15/2011 DX:GERD (gastroesophageal re flux disease) Gluten-responsive sprue 06/20/2015 DX:Glute n-responsive sprue Bacterial vaccines causing a dverse effect in therapeutic use 01/06/2017 DX:Bacterial vaccines causin g adverse effect in therapeutic use Primary immunodeficiency syn drome ([facility]) 06/20/2015 DX:Primary immunodeficiency syndrome ([facility]); COMMENT: Followed by dhruv hilliard at [facility] Chronic obstructive pulmonar y disease (COPD) ([facility]) 05/12/2017 DX:Chronic obstructive pulmo nary disease (COPD) ([facility]) Asbestos-induced pleural plaque 12/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 Morbid obesity with BMI of 4 5.0-49.9, adult ([facility]) 08/30/2013 DX:Morbid obesity with BMI o f 45.0-49.9, adult ([facility]) Family History Medical History Relation [...] Description 01/25/2025 8:40 AM EDT Office Visit [facility] [address] [place] [phone] Marisa Patel, CRISTINA [address] [place] [address] Health Maintenance Due Date Last Done Comments [...] Screening) 11/06/2026 11/06/2021 Cholesterol Screening (Lipid Panel) 10/23/2029 10/23/2024, 05/25/2024, 05/25/2024, Additional history exists DTaP,Tdap,and Td Vaccines (4 [...] of carotid artery Left upper arm pain BASIC METABOLIC PANEL Routine 07/19/2024 11:31 AM [...] Signed Date: 08/30/2024 09:19 ET Workstation ID: [id number] Transcribed By: Self Edit Transcribed Date: 08/30/2024 08:57 ET Narrative 08/30/2024 9:[address] angiogram of the neck and [place] and delayed postcontrast CT of the brain, 08/30/2024. HISTORY: abnormal carotid duplex suggesting left subclavian stenosis. COMPARISON: 01/25/2024. TECHNIQUE: CT angiogram of the neck and [place] with multiplanar reformats. Delayed postcontrast [...] mild associated stenosis. The basilar artery and clothes marker are widely patent. ??Calcified plaque in the [...] 08/30/2024 CT angiogram of the neck and [place] and delayed postcontrast CTof the brain, 08/30/2024. HISTORY: abnormal carotid duplex suggesting left subclavian stenosis. COMPARISON: 01/25/2024. TECHNIQUE: CT angiogram of the neck and [place] with multiplanarreformats. Delayed postcontrast images [...] mild associated stenosis. The basilar artery and clothes marker are widely patent. Calcified plaque in thecarotid [...] Signed Date: 08/30/2024 09:19 ET Workstation ID: [id number] Transcribed By: Self Edit Transcribed Date: 08/30/2024 08:57 ET us Erasmo Heredia MD IMG CT PROCEDURES Final Result * (ABNORMAL) Basic metabolic panel (07/19/2024 11:31 AM EST) Sodium 139 133 - 145 mmol/L LAB CHEMISTRY METHOD 07/19/2024 2:49 PM [facility] Potassium 4.0 3.5 - 5.5 mmol/L LAB CHEMISTRY METHOD 07/19/2024 2:49 PM [facility] Chloride 103 96 - 110 mmol/L LAB CHEMISTRY METHOD 07/19/2024 2:49 PM [facility] CO2 31 21 - 32 mmol/L LAB CHEMISTRY METHOD 07/19/2024 2:49 PM [facility] Anion Gap 5 3 - 11 LAB CHEMISTRY METHOD 07/19/2024 2:49 PM [facility] Glucose 113(H) 70 - 100 mg/dL LAB CHEMISTRY METHOD 07/19/2024 2:49 PM [facility] BUN 14 5 - 25 mg/dL LAB CHEMISTRY METHOD 07/19/2024 2:49 PM [facility] Creatinine 0.95 0.50 - 1.10 mg/dL LAB CHEMISTRY METHOD 07/19/2024 2:49 PM [facility] eGFR 63 >=60 mL/min/1. 73m2 LAB CHEMISTRY METHOD 07/19/2024 2:49 PM [facility] Comment:Calculation based on the??Chronic Kidney Disease Epidemiology Collaboration (CKD-EPI) equation refit??without adjustment for race. BUN/Creatinine Ratio 14.7 LAB CHEMISTRY METHOD 07/19/2024 2:49 PM [facility] Calcium 9.9 8.5 - 10.5 mg/dL LAB CHEMISTRY METHOD 07/19/2024 2:49 PM [facility] Blood Venous blood specimen / Unknown Venipuncture / Unknown 07/19/2024 11:31 AM EST 07/19/2024 12:07 PM EST Erasmo Heredia MD LAB BLOOD ORDERABLES Final [facility]u lt [facility] [address] [place] [address], * HM Urine Albumin Creatinine Ratio (05/25/2024) Urine Albumin Creatinine Ratio abstracted Historical Provider HEALTH MAINTENANCE Final Result * (ABNORMAL) Hemoglobin A1c (05/25/2024) Hemoglobin A1C 6.6(A) <=6.5 % Blood Venous blood specimen / Unknown Result [facility] Historical Provider LAB BLOOD ORDERABLES Nika l Result * (ABNORMAL) Lipid panel (05/25/2024) LDL/HDL Ratio 3 0 - 4 Triglycerides 161(A) 0 - 150 mg/dL Cholesterol 150 0 - 200 mg/dL HDL 53 >=40 mg/dL LDL Cholesterol 65 0 - 100 mg/dL Blood Venous blood specimen / Unknown Result [facility] Historical Provider LAB BLOOD ORDERABLES Nika l Result * Depression Screening (03/26/2024) Depression Screening abstracted Historical Provider HEALTH MAINTENANCE Final Result * SCREENING MAMMOGRAPHY BI 2-VIEW [...] * Falls Risk Assessment (10/07/2023) Pathologist [facility] Falls Risk Assessment abstracted Historical Provider HEALTH MAINTENANCE Final Result * Diabetes Eye Exam (08/31/2023) Pathologist [facility] Diabetes: Annual Retina Eye Exam abstracted Historical Provider HEALTH MAINTENANCE Final Result * DXA [...] normal bone density by WHO criteria. The [facility] Department of Internal Medicine recommends using National [...] alternative screening schedule based on channing Maravilla., [facility] September 23, 2011 for patients with osteopenia [...] normal bone density by WHO criteria. The [facility] Department of Internal Medicine recommendsusing National Osteoporosis [...] FRAX. Optional alternative screening schedule based on orestes Maravilla al., NEJMJanuary 2011 for patients with osteopenia (based on hip BMD T-score) is as follows: * advanced osteopenia (T scores -2.00 to -2.49), BMD testing every year * moderate osteopenia (T scores -1.50 to -1.99), BMD testing every 5years mild osteopenia or normal BMD (T scores -1.50 and higher), BMD testingevery 15 years [facility] DXA PROCEDURES Final Result * Hepatitis C Screening (11/14/2018) Hepatitis C Screening abstracted us Historical Provider HEALTH MAINTENANCE Final Result from Last 3 Months or Most Recently Relevant to Health Maintenance Insurance MEDICARE [facility] Advance Directives Documents on File Type Date Recorded Patient Mat Making Machine Tender Expl anation Health Care Decision (hx) 01/31/2014 AD FITZPATRICK DIRECTIVE Health Care Decision (hx) 01/31/2014 AD FITZPATRICK DIRECTIVE Health Care Decision (hx) 01/31/2014 AD FITZPATRICK DIRECTIVE Health Care Decision (hx) 01/31/2014 AD FITZPATRICK DIRECTIVE Health Care Decision (hx) 01/31/2014 AD FITZPATRICK DIRECTIVE Health Care Decision (hx) 01/31/2014 AD FITZPATRICK DIRECTIVE
--- OUTSIDE RECORDS SUMMARY | 2024-11-07 17:55 | XMS_ITS | Encounter Summary ---
Author Organization [facility] Address [address] [place] [address] Care Team Providers Care Building Trades Teacher Name Role Phone Unavailable Primary Care Provider Unavailabl e Reason for Visit * Reason Onset Date Comments Med Refill 10/31/2024 Encounter Details Date Type Department Care Team (Late st Contact Info) Description 10/31/2024 Telephone [facility] [address] [facility] [address] [place] [phone] Erasmo Heredia MD [address] [facility] [address] [place] [address] Med Refill Social History Tobacco Use Types Packs/Day Years [...] Orientation Straight 08/12/2024 1: 48 PM EST documented as of this encounter Ordered Prescriptions Prescription Sig Dispense Quantity Refills Last Filled Start Date End Date simvastatin (ZOCOR) 40 mg tablet Take 1 tablet (40 mg total) by mouth at bedtime. 90 tablet 1 10/31/2024 documented in this encounter Progress Notes * Treasure Seth MA - 10/31/2024 2:24 PM EST Statin renewed. Patient made aware. She will like you to review her most recent labs pcp ordered. Under labs 2.18.25 * Kimberly Walls - 10/31/2024 1:27 PM EST The patient called requesting a refill for simvastatin 40 mg, 1 tablet daily, 90 day supply, pharmacy confirmed, please send as soon as possible as she is out of medication. She is also asking if sheneeds to have any lab work done. Please call her back at [phone]. documented in this encounter Plan of Treatment Upcoming Encounters Date Type Department Care Team (Late st Contact Info) Description 01/25/2025 8:40 AM EDT Office Visit [facility] [address] [address] Marisa Patel, CRISTINA [address] [facility] [address] [place] [address] documented as of this encounter Visit Diagnoses Not on filedocumented in this encounter Discontinued Medications Medication Sig Discontinue Reason Start Date End Da te simvastatin (ZOCOR) 40 mg tablet Take 1 Tablet by mouth at bedtime. Reorder 09/30/2023 10/31/2024 documented as of this encounter
--- OUTSIDE RECORDS SUMMARY | 2024-11-07 17:55 | XMS_ITS | Referral Summary ---
Author Organization [facility] Address [address] [place] [address] Care Team Providers Care Public Health Specialist Name Role Phone Mitch Gonzalez Primary Care Provider [phone] Encounters Date Type Department Care Team Description 10/30/2024 Telephone [facility] [address] [place] [address] Teacher Theater Arts: Priyank Cornejo MD Krinzman/Medication Question 09/25/2024 1:20 PM EST Telehealth [facility] [address] [place] [phone] Teacher Theater Arts: Priyank Cornejo MD Hypogammaglobulinemia (Primary Dx); Allergic rhinitis, unspecified seasonality, unspecified trigger from Last 3 Months Allergies Active Allergy Reactions Criticality Noted Date Comments Immun Glob G(Igg)-Gly-Iga Ov50 Hives,Angioedema High 12/25/2020 Discontinued Gamunex-C. ??Trial of Gammagard here in the infusion suite went well. After her reaction, the particular lot of Gamunex C that she had received was recalled by the magician/illusionist secondary to reports of allergic reactions in other patients also. Medications FREESTYLE LANCETS MISC Use as directed 3 times a [...] IV every 3 weeks. Drug provided by [facility]. Nursing through infusion plus. 1 [...] directed once for 1 dose. 0.3 mL Active ipratropium (ATROVENT) 0.03% nasal spray Administer 2 sprays into each nostril 3 times a day as needed for rhinitis. As needed for nasal drip 30 mL 11 Active olmesartan-hyd rochlorothiazi de (BENICAR HCT) 40-25 mg per tablet Take 1 tablet by mouth once a day. 5 Active levothyroxine (SYNTHROID, LEVOTHROID) 137 mcg tablet Take 1 tablet (137 mcg total) by mouth daily. 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 Hypothyroidism 03/23/2009 Hypogammaglobulinemia 03/23/2009 Osteoarthritis 03/23/2009 Obesity 03/23/2009 Narcolepsy 03/23/2009 Fibromyalgia 03/23/2009 Esophageal reflux 03/23/2009 Asthma 03/23/2009 Resolved Problems Problem Noted Date Diagnosed Date Resolved Date COVID-19 virus infection 03/24/2022 Adverse effect of immunoglobulin 11/20/2020 09/22/2023 Immunizations Immunization Administration Dates Next Due Covid-19 [...] Vaccine, Adsorbed 10/31/2012 Zoster Vaccine Recombinant 08/20/2020,08/06/2020 Social History Tobacco Use Types Packs/Day Years Used Date Smoking Tobacco: Former Cigarettes 1987 Smokeless Tobacco: Never Tobacco Cessation:Counseling Given: [...] Pressure 156/59 09/22/2023 10:00 AM EST 147/74- ACCOUNT SUPPORT ANALYST Pulse 83 09/22/2023 10:00 AM EST Temperature [...] 03/16/2019 11:03 AM EDT Plan of Treatment Not on file Procedures * Due to [place] state law, this organization might not be sharing negative HIV tests. Procedure Name Priority Date/Time Associated Diagnosis Comments BASIC METABOLIC PANEL Routine 11/30/2008 12:01 AM EDT from Last 3 Months or Most Recently Relevant to Health Maintenance Results * Due to [place] state law, this organization might not be sharing negative HIV tests. * (ABNORMAL) Basic Metabolic Panel (11/30/2008 12:01 AM EDT) Sodium Blood 140 136 - 145 mmol/L [facility] Potassium Blood 4.0 3.5 - 5.3 mmol/L [facility] Chloride Blood 99 97 - 110 mmol/L [facility] Carbon Dioxide 31 24 - 32 mmol/L [facility] Gap 10 5 - 15 [facility] Glucose 127(H) 70 - 99 mg/dL [facility] BUN 15 7 - 23 mg/dL [facility] Creatinine 0.89 0.50 - 1.20 mg/dL [facility] eGFR Non- >60 >60 [facility] Comment: Units = mL/min/1.73 m2 Glomerular Filtration Rate (GFR) is estimated based on the IDMS-Traceable MDRD equation(NKDEP).For Americans multiply results by 1.210. Patients with CKD exhibit values less than 60mL/min/1.73 m2, while results less than 15mL/min/1.73 m2 are consistent with kidney failure. This MDRD equation is not recommended by NKDEP for drug-dosing purposes Calcium Blood 9.0 8.7 - 10.7 mg/dL [facility] 11/30/2008 12:0 1 AM EDT 11/30/2008 7:15 AM EDT us Morena Sousa LAB BLOOD ORDERABLES Fi nal Result [facility] [address] [place] [address], from Last 3 Months or Most Recently Relevant to Health Maintenance Insurance [id number], [place] [address] [facility] Advance Directives Documents on File Type Date Recorded Patient Rides Supervisor Expl [facility] Care Proxy 09/22/2022 10:57 PM -2 Advance Directive 12/04/2008 12:00 AM [facility] dical Dec Making (Adv.Dir) Care Teams Public Health Specialist Relationship Specialty Start Date End Date Mitch Gonzalez PA [address] [place] [address] PCP - General Emergency Medicine 06/25/24
--- OUTSIDE RECORDS SUMMARY | 2024-11-07 17:56 | XMS_ITS | Encounter Summary ---
Author Organization [facility] Address [address] [place] [address] Care Team Providers Care Ethernet Network Architect Name Role Phone Mitch Gonzalez Primary Care Provider [phone] Encounter Details Date Type Department Care Team (Late st Contact Info) Description 04/18/2020 Qoniac Message [facility] [address] [place] [address] Mycjohnt, Generic Provider [address] [place] [address] Video Visit Patient Resources Social History Tobacco Use Types Packs/Day Years Used Date Smoking Tobacco: Former Cigarettes 1987 Smokeless Tobacco: Never Comments:: Comments Unknown [...] on filedocumented in this encounter Care Teams Ethernet Network Architect Relationship Specialty Start Date End Date Mitch Gonzalez PA [address] [place] [address] PCP - General Emergency Medicine 06/25/24 documented as of this encounter
--- OUTSIDE RECORDS SUMMARY | 2024-11-07 17:56 | XMS_ITS | Clinical Summary ---
Author Organization [facility] Address [address] [place] [address] Phone Care Team Providers Care Asbestos Wire Finisher Name Role Phone Mitch Gonzalez PA-C Primary Care Provider [phone] Social History Tobacco Use Types Packs/Day Years Used Date Smoking Tobacco: Former Alcohol Use Standard Drinks/Week Comments No 0 (1 standard drink = 0.6 oz pur e alcohol) Comments Unknown Sex and Gender Information Value Date Recorded Sex Assigned at Not on file Legal Sex Female 4:33 PM EST Gender Identity Not on file Sexual Orientation Not on file Last Filed Vital Signs Vital Sign Reading Time Taken Comments Blood Pressure 118/68 05/23/2019 12:00 PM EDT Pulse 72 05/23/2019 12:00 PM EDT Temperature - - Respiratory Rate - - Oxygen Saturation - - Inhaled Oxygen Concentration - - Weight 119 kg (263 lb) 05/23/2019 12:00 PM EDT Height 162.6 cm (5' 4 ) 05/23/2019 12:00 PM EDT Body Mass Index 45.14 05/23/2019 12:00 PM EDT Plan of Treatment Upcoming Encounters Date Type Department Care Team (Late st Contact Info) Description 12/14/2024 2:30 PM EDT Office Visit [facility] [place], [address] [place] [address] Simba Moore MD [address] [facility] [place] [address] Health Maintenance Due Date Last Done Comments Breast Cancer Screening 1950 Colorectal Cancer Screening: Annual FOBT 1997 Colorectal Cancer Screening: Colonoscopy 1997 Colorectal Cancer Screening: Sigmoidoscopy 1997 Hepatitis B Vaccine (1 of 3 - Risk 3-dose series) 2008 Pneumococcal Vaccine: 65+ Ye ars (3 of 3 - PPSV23 or PCV20) 02/22/2017 12/28/2016, 12/07/2016, 08/05/1996 Diabetes: Ophthalmology Exam 11/26/2019 Diabetes: Pedal Pulse Checked 11/26/2019 Diabetes: Sensory Foot Exam 11/26/2019 Diabetes: Visual Foot Exam 11/26/2019 Diabetes: Hemoglobin A1C 08/24/2024 05/25/2024 Influenza Vaccine Completed 07/05/2024, , 06/20/2023, Additional history exists Insurance [id number] [place] [address] MEDICARE [facility] Care Teams Asbestos Wire Finisher Relationship Specialty Start Date End Date Micth Gonzalez PA-C [address] [place] [address] PCP - General 07/25/24
--- OUTSIDE RECORDS SUMMARY | 2024-11-07 17:56 | XMS_ITS | Encounter Summary ---
Author Organization [facility] Address [address] [place] [address] Phone Care Team Providers Care Antique Furniture Repairer Name Role Phone Mitch Gonzalez PA-C Primary Care Provider [phone] Encounter Details Date Type Department Care Team (Late Contact Info) Description 07/25/2024 Documentation Only [facility] [address] [place] [address] [place] [address] [place] [address] Social History Tobacco Use Types Packs/Day Years Used Date Smoking Tobacco: Former Alcohol Use Standard Drinks/Week Comments No 0 (1 standard drink = 0.6 oz pur e alcohol) Comments Unknown Sex and Gender Information Value Date Recorded Sex Assigned at Not on file Legal Sex Female 4:33 PM EST Gender Identity Not on file Sexual Orientation Not on file documented as of this encounter Plan of Treatment Upcoming Encounters Date Type Department Care Team (Late st Contact Info) Description 12/14/2024 2:30 PM EDT Office Visit [facility] [address] [place] [address] Simba Moore MD [address] [facility] [place] [address] documented as of this encounter Visit Diagnoses Not on filedocumented in this encounter Care Teams Antique Furniture Repairer Relationship Specialty Start Date End Date Mitch Gonzalez PA-C [address] [place] [address] PCP - General 07/25/24 documented as of this encounter
--- OUTSIDE RECORDS SUMMARY | 2024-11-07 17:56 | XMS_ITS | Encounter Summary ---
Author Organization [facility] Address [address] [place] [address] Care Team Providers Care Insole Rounder Name Role Phone Mitch Gonzalez Primary Care Provider [phone] Reason for Visit * Reason Onset Date Comments Krinzman/Medication Question 10/30/2024 Encounter Details Date Type Department Care Team (Late st Contact Info) Description 10/30/2024 Telephone [facility] [address] [place] [address] [id number] Production Specialist: Henry Hilliard, Priyank Young MD [address] [place] [id number] Krinzman/Medication Question Social History Tobacco Use Types Packs/Day Years [...] PM EDT documented as of this encounter Miscellaneous Notes * Telephone Encounter - Priyank Hilliard MD - 10/30/2024 9:41 AM EST Called her. She is being treated with cefpodoxime and doxycycline, and treated with steroids. She reports her breathing is now OK and has only had occasional minimal respiratory symptoms in the past. ADVISED: OK to get IvIG as planned today, but stop infusion if she notes any significant worsening of breathing. * Telephone Encounter - Lou Willett - 10/30/2024 9:29 AM EST Patient is calling she just saw her Food Mixer Assembler because she is sick and she was put on two different antibiotics and she is supposed to have her infusion today can she still do her infusion being on antibiotics? If she can't do her infusion how long will she have to wait in taking it again? She can be reached at [phone] The nurse is at her home right now so she needs to find this information out as soon as possible documented in this encounter Plan of Treatment Not on file documented as of this encounter Visit Diagnoses Not on filedocumented in this encounter Care Teams Insole Rounder Relationship Specialty Start Date End Date Mitch Gonzalez PA [address] [place] [id number] PCP - General Emergency Medicine 06/25/24 documented as of this encounter
--- OUTSIDE RECORDS SUMMARY | 2024-11-07 17:56 | XMS_ITS | Encounter Summary ---
Author Organization [facility] Address [address] [place] [address] Care Team Providers Care Retail Advertising Account Executive Name Role Phone Mitch Gonzalez Primary Care Provider [phone] Encounter Details Date Type Department Care Team (Latest Contact Info) Description 02/16/2022 Orders Only [facility] [address] [place] [address] Babatunde Allan NP [address] [place] [address] Common variable hypogammaglobulinemia (Primary Dx) Social History Tobacco Use Types Packs/Day Years [...] documented as of this encounter Visit Diagnoses Diagnosis Common variable hypogammaglobulinemia- Primary Common variable immunodeficiency documented in this encounter Care Teams Retail Advertising Account Executive Relationship Specialty Start Date End Date Mitch Gonzalez PA [address] [place] [address] PCP - General Emergency Medicine 06/25/24 documented as of this encounter
== END 2024-11-07 14:49 | disposition home or self-care (01) ==
LOC: HO.XRAY 14:48
PROVIDERS: PCP Physician Assistant Surgical; Visit Provider Hospitalist
DX: J40 Bronchitis, not specified as acute or chronic (principal)
CPT/HCPCS: 71046

== ENCOUNTER → 2024-11-07 14:53 | Outpatient (BNV) | payer MEDICARE, SELFPAY | PROVIDERS: PCP Physician Assistant Surgical; Visit Provider Radiology Diagnostic Radiology | DX: J40 Bronchitis, not specified as acute or chronic (principal) | CPT/HCPCS: 71046 ==

== ENCOUNTER 2025-01-29 11:05 | Outpatient (AMB) | payer MEDICARE, SELFPAY ==
[2025-01-29 11:15] VITALS: BP 136/56; PULSE 63; O2SAT 96; BMI 44.4
--- NOTE | 2025-01-29 11:15 | A.OFFVIS_ITS ---
Vital Signs 01/29/25 11:15 Height 5 ft 1 in Weight 234 lb 12.677 oz BMI 44.4 BP 136/56 L Blood Pressure Location Rt brachial Position Sitting Pulse 63 Pulse Source Pulse Oximeter Pulse Oximetry (%) 96 Oxygen Delivery Method Room Air Intake Visit Reasons: Asthma Telecommunications Engineer Required: No Accompanied by: Spouse Allergies Tape Allergy (Severe, Uncoded 10/30/24 08:27) Itching HPI Comments Details: The patient is 74 y/o woman with a history of moderate severe asthma in addition to BRIDGET on BiPAP and hypogammaglobulinemia receiving IgG infusions every 3 weeks. She gets chills at home. She has been complaining of worsening dyspnea on exertion. Moderate in severity. Does improve with rest. She also has substernal chest pressure related to the shortness of breath. Her inhalers are not helping. She does use her nebulizer and does relieve some of the discomfort. She continu es to use the BiPAP. The BiPAP has been affecting beneficial. However, she is waiting for replacement. She continues to get the IgG infusions at home. Does also have been very effective for her. The plan is for her to continue that therapy. Also to note she had a complete cardiac workup including cardiac cath and per report it was ok. The patient is still having dyspnea symptoms. She continues her respiratory therapy although she has not been using the inhalers as much because it causes worsens and thrush. Therefore she stopped the trelegy. We did review her PFTs demonstrating a reversible obstruction with significant response to bronchodilators. Therefore, I do think that she needs to be on a maintenance inhaler and therefore will provide her Symbicort with spacer hopefully she can tolerate a smaller does without the adverse effects with rest that she typically gets. The patient is has been getting her IgG infusions and Her BiPAP therapy has been affecting beneficial is no issues with that. 08/19/2023 the patient is here for pulmonary follow-up visit. The patient is feeling a lot better. She is now back to her baseline. She continues use her respiratory therapy. We did review her imaging studies including a CT of the chest demonstrating no acute disease. She still gets these episodes of cough and productive in nature difficult to expectorate the phlegm. She get a Acapella valve but does not seem to be working effectively. She tried [id number] Mucinex the high dose to see if this is helpful in providing good mucus clearance. If not she is going to try to get a sputum culture. She has left than on the CT scan of the chest that I see that is concerning. She continues to receive the IVIG every 3 weeks without any issues. Her blood pressure seems to be doing better. As far as vaccinations he has got all her vaccines except for the RT vaccine. She will get that as well as possible. Otherwise follow-up in 6 months. 01/25/2024 the patient is here for a pulmonary follow-up visit. Overall she is doing okay although she has had issues with her insurance. The patient did have a worsening cough over the winter. With thick tenacious mucus difficult to clear. She almost call the office but she has not to. The symptoms did improve with time. She continues use her respiratory therapy. Now Symbicort is no longer covered by her insurance. Initially weight Center Breo since she was already on Incruse. There was a question about the powder inhalers so then we sent her Dulera as well. Now she has a lot of different inhalers. We need to make sure that she does not over medicate. Therefore I did spend some time with her explaining to her which inhalers to use. She will continue with her Symbicort until she runs out. Then after that she can switch over to Breo and continue using her Incruse. If she tolerates the Breo and Incruse well then we can consider poorly seeing her on Trelegy in the future. If she does not tolerate the powder inhaler then at that point she can try the Dulera. She will call if issues arise. In the meantime she continues with the IVIG infusions every 3 weeks. In addition to that she has been on the BiPAP therapy the BiPAP therapy has been affecting beneficial. She does use it for more than 4 hours a night. No issues with the mask or response to therapy. 05/22/2024 the patient is here for sick visit. Apparently the end the April she developed COVID-19. The patient did take Paxlovid. Subsequently after that she did have rebound symptoms and she was having worsening respiratory symptoms. She then tested positive again. The patient continue conservative therapy. She also was taking Mucinex. She continues use her respiratory therapy as prescribed. She also required additional cortical steroid therapy to decrease the inflammation of the airways. The patient is no better. She still having to use her nebulizer 3 to 4 times a day. Just before the visit today she did do a couple treatments. Still feels chest tightness and wheezing. I did offer her Solu-Medrol intramuscularly however, the patient does have diabetes and that will cause her to have significantly elevated sugars. Therefore, will go ahead and start her on antibiotics. She already completed a course of doxycycline. Also will give another course of Medrol. She can continue to use her respiratory therapy as prescribed. The patient also has new inhalers and we did discuss them. If the patient is no better she will call otherwise will follow-up in July during her regular follow-up visit. 08/01/2024 the patient is here for a pulmonary follow-up visit. Overall she is doing okay. Does complaint of hoarseness and some difficulty with layering sometimes gets a little ?tight?. Likely related to vocal cord dysfunction. We did talk about different triggers that could potentially be worsening that. She does use Dulera. Will go ahead and switch over to Dulera with a spacer to try to minimize irritation from the inhalers themselves. In the meantime she feels like she has some little lesions on her back with the throat. I did look. They look like follicles will likely secondary to chronic postnasal drip. However, because her immunodeficiency would not be unreasonable to place her on chlorhexidine mouthwash. As far as her cough she continues have productive cough consistent with chronic bronchitis. She has already maximizing her respiratory therapy. We did talk about Daliresp as an option but, she is going to start Ozempic soon nasal at 0 1 start him to many medications that can affect her GI system. In addition to that she can try the new Ohtuvayre nebulized solution that she could use twice a day to try to minimize the respiratory symptoms. I will have her read up on to see if this something she wants to try. Otherwise she will continue on the current respiratory regimen. We did talk about her vaccines which once she needs to do. She continues to use her BiPAP at nighttime. She does use it for more than 4 hours a night. In addition to that she continues on the IVIG therapy. If any issues arise she will call for earlier assessment. 10/30/2024 the patient is here for sick visit. She started developing worsening respiratory symptoms last week. Started developing significant chest tightness and cough. Can not sleep at nighttime. Moderate to severe. She is very tired and weak. She went to the [facility] ER where she has tested for COVID RSV and flu which all negative. She had an x-ray which I personally reviewed demonstrating some airway changes and some congestion to the right base. Likely some component of bronchitis with only pneumonia. She was given a course of doxycycline. The patient still no better she is actually feeling worse. She has significant wheezing on exam. Were given to treatments with levalbuterol and she will receive Solu-Medrol. In addition to that will probably expand her antibiotic regimen. 01/29/2025 the patient is here for pulmonary follow-up visit. She is doing a lot better now. She is very sick when she was has here she was given multiple antibiotics and also Solu-Medrol. She did complete the prednisone back to her baseline. She also had a chest x-ray done which was personally by me without any acute disease which is reassuring. The patient continues to receive the IV IG therapy through the tertiary center environmental emergencies assistant. She is tolerating that well. She is going to have blood work with them as well. The patient does complain of issues with hoarseness specially from the Dulera. She has already tried a spacer. Therefore will switch her over to Alvesco and also will switch her to Anoro in order to provide her with a better inhaled cortical steroid that will not irritate the larynx as much. In the meantime will go ahead and have her continue using his spacer. Otherwise patient is doing well, I am hoping that the new respiratory regimen helps her without does significant effects of the adverse hoarseness. She does tolerate that will go ahead and continue it and she will follow-up sometime in the fall specially since she has a hard time with her breathing then. [facility] Medical History (Updated 08/05/24 @ 18:07 by Delfino Osorio MD) Vocal cord dysfunction Asbestos exposure Hypogammaglobulinemia BRIDGET treated with BiPAP Asthma Social History (Updated 08/01/24 @ 11:27 by ENID Claudio) Patient Tobacco Use Status: Former Tobacco user Years Smoked: 20 Review of Systems Const Reports fatigue and Denies night sweats ENT Denies change in voice, Reports hoarseness, Denies lip swelling, Denies mouth pain, Reports nasal congestion, Reports nasal discharge and Denies tongue swe lling Card Reports dyspnea and Reports dyspnea on exertion Resp Reports chest congestion, Reports cough, Denies pain on inspiration, Reports dyspnea, Reports dyspnea on exertion and Reports wheezing GI Denies abdominal pain Musc Denies no additional complaints Neuro Denies Neuro-related abnormal movements Psych Denies no additional complaints Endo Reports fatigue Preston/Lymph Denies easy bleeding and Denies lymphadenopathy Aller/Immun Denies lip swelling, Denies tongue swelling and Reports wheezing Physical Exam Vital Signs: Last Vital Signs Pulse 63 01/29/25 11:15 BP 136/56 L 01/29/25 11:15 Pulse Ox 96 01/29/25 11:15 Oxygen Delivery Method Room Air 01/29/25 11:15 BMI result Body Mass Index 44.4 Const General: comfortable and alert HEENT General nose exam: Abnormal external nose present and Nasal discharge present Throat: Yes posterior oropharynx abnormal (erythema and lymphoid follicles) and Yes cobblestoning Eyes Pupils: Equal, round and reactive pupils present Neck Neck: Yes normal visual inspection, Yes full ROM and Yes no lymphadenopathy Chest Chest palpation & inspection: normal inspection of the chest Resp Effort & Inspection: normal respiratory effort and prolonged expiratory phase Auscultation: rhonchi, wheezes and diminished lung sounds Cardio Rate: regular rate Rhythm: regular rhythm Heart sounds: S1 normal heart sound present and S2 normal heart sound present GI Palpation (GI): Soft to palpation and nontender Auscultation: normal bowel sounds General: Yes no CVA tenderness Back/Spine/Pelvis Back: no CVA tenderness Skin General skin exam: rashes and/or lesions noted Neuro Cranial nerves: Yes Equal, round and reactive pupils present Assessment & Plan Assessment & Plan (1) Asthma: Code(s): J45.909 - Unspecified asthma, uncomplicated Category: Medical Qualifiers: Asthma complication type: with acute exacerbation Asthma persistence: persistent Asthma severity: moderate Qualified Code(s): J45.41 - Moderate persistent asthma with (acute) exacerbation (2) BRIDGET treated with BiPAP: Code(s): G47.33 - Obstructive sleep apnea (adult) (pediatric) Category: Medical (3) Hypogammaglobulinemia: Code(s): D80.1 - Nonfamilial hypogammaglobulinemia Category: Medical (4) Asbestos exposure: Code(s): Z77.090 - Contact with and (suspected) exposure to asbestos Category: Medical (5) Bronchitis: Code(s): J40 - Bronchitis, not specified as acute or chronic Category: Medical (6) Vocal cord dysfunction: Code(s): J38.3 - Other diseases of vocal cords Category: Medical Plan Cough medicine stop Dulera BID with spacer stop Incruse daily start Alvesco start Anoro start Nystatis SS ION as needed IVIG every 3 weeks, should get pretreatment to avoid/minimize reactions continue mucinex DM Continue BIPAP F/U 2 months Medications: New ciclesonide 160 mcg/actuation (Alvesco) 1 puff inhalation BID 30 days 6.1 grams 6RF umeclidinium-vilanterol 62.5-25 mcg/actuation (Anoro Ellipta) 1 inh inhalation DAILY 30 days 60 ea 11RF J44.89 - Other specified chronic obstructive pulmonary disease nystatin swish and swallow 1 mL PO TID 14 days 42 mL 2RF Coding Level of Care Code Est Pt Level 4 (98092) Complex EM visit Add On G2211 Diagnoses Moderate persistent asthma with acute exacerbation J45.41 Asthma complication type: with acute exacerbation Asthma persistence: persistent Asthma severity: moderate BRIDGET treated with BiPAP G47.33 Hypogammaglobulinemia D80.1 Asbestos exposure Z77.090 Bronchitis J40 Vocal cord dysfunction J38.3 Time Spent (min) 17
--- OUTSIDE RECORDS SUMMARY | 2025-01-29 11:54 | XMS_ITS | Clinical Summary ---
Author Organization [facility] Address [address] [place] [address] Care Team Providers Care Handbag Operator Name Role Phone Mitch Gonzalez Primary Care Provider [phone] Allergies Active Allergy Reactions Criticality Noted Date Comments Immun Glob G(Igg)-Gly-Iga Ov50 Hives,Angioedema High 12/25/2020 Discontinued Gamunex-C. ??Trial of Gammagard here in the infusion suite went well. After her reaction, the particular lot of Gamunex C that she had received was recalled by the architect in training secondary to reports of allergic reactions in other patients also. Medications FREESTYLE LANCMARY MISC Use as directed 3 times a [...] IV every 3 weeks. Drug provided by [facility]. Nursing through infusion plus. 1 Active budesonide-for moteroL (Symbicort) 80-4.5 mcg inhaler Active amphetamine-de xtroamphetamin e XR (ADDERALL XR) 25 mg capsule 2 Active ipratropium-al buteroL (DUO-NEB) 0.5-2.5 mg/3 mL nebulizer solution Ipratropium-Albut mariam 0.5-2.5 (3) MG/3ML Inhalation Solution USE 1 UNIT DOSE IN NEBULIZER EVERY 4 HOURS NEEDED. 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 Procedure Name Priority Date/Time Associated Diagnosis Comments BASIC METABOLIC PANEL Routine 11/30/2008 12:01 AM EDT from Last 3 Months or Most Recently Relevant to Health Maintenance Results * Due to [place] [employer] law, this organization might not be sharing negative HIV tests. * (ABNORMAL) Basic Metabolic Panel (11/30/2008 12:01 AM EDT) Sodium Blood 140 136 - 145 mmol/L [facility] Potassium Blood 4.0 3.5 - 5.3 mmol/L [facility] Chloride Blood 99 97 - 110 mmol/L [facility] Carbon Dioxide 31 24 - 32 mmol/L [facility] Gap 10 5 - 15 [facility] Glucose 127(H) 70 - 99 mg/dL [facility] BUN 15 7 - 23 mg/dL [facility] Creatinine 0.89 0.50 - 1.20 mg/dL [facility] eGFR Non- >60 >60 [facility] Comment: Units = [...] [place] Blood 9.0 8.7 - 10.7 mg/dL [facility] 11/30/2008 12:0 1 AM EDT 11/30/2008 7:15 AM EDT us Morena Sousa LAB BLOOD ORDERABLES nal Result [facility] [address] [place] [address], from Last 3 Months or Most Recently Relevant to Health Maintenance Insurance [id number], [place] [address] MEDICARE [facility] Advance Directives Documents on File Type Date Recorded Patient Graphic Manager Expl [facility] Care Proxy 09/22/2022 10:57 PM 02-2 Advance Directive 12/04/2008 12:00 AM [facility] dical Dec Making (Adv.Dir) Care Teams Handbag Operator Relationship Specialty Start Date End Date Mitch Gonzalez PA [address] [place] [address] PCP - General Emergency Medicine 06/25/24
== END 2025-01-29 12:11 | disposition home or self-care (01) ==
LOC: HO.HPS 11:06
PROVIDERS: PCP Physician Assistant Surgical; Visit Provider Hospitalist
DX: J45.41 Moderate persistent asthma with (acute) exacerbation (principal); G47.33 Obstructive sleep apnea (adult) (pediatric); D80.1 Nonfamilial hypogammaglobulinemia; Z77.090 Contact with and (suspected) exposure to asbestos; J40 Bronchitis, not specified as acute or chronic; J38.3 Other diseases of vocal cords
CPT/HCPCS: 99214; G2211

== ENCOUNTER → 2025-01-29 11:05 | Outpatient (BNVA) | payer MEDICARE, SELFPAY | PROVIDERS: PCP Physician Assistant Surgical; Visit Provider Hospitalist | DX: J45.41 Moderate persistent asthma with (acute) exacerbation (principal); Z77.090 Contact with and (suspected) exposure to asbestos; J40 Bronchitis, not specified as acute or chronic; J38.3 Other diseases of vocal cords; G47.33 Obstructive sleep apnea (adult) (pediatric); D80.1 Nonfamilial hypogammaglobulinemia | CPT/HCPCS: 99212 ==

== ENCOUNTER 2025-05-10 11:05 | Outpatient (AMB) | payer MEDICARE, SELFPAY ==
--- NOTE | 2025-05-10 11:10 | MHC.OFFVIS ---
Vital Signs 05/10/25 11:11 Height 5 ft 1 in Weight 235 lb 14.314 oz BMI 44.6 BP 144/54 H Blood Pressure Location Rt brachial Position Sitting Pulse 86 Pulse Source Pulse Oximeter Pulse Oximetry (%) 98 Oxygen Delivery Method Room Air Intake Visit Reasons: Asthma Automatic Nailing Machine Operator Required: No Accompanied by: Self / Same As Patient Allergies Tape Allergy (Severe, Uncoded 10/30/24 08:27) Itching HPI Comments Details: The patient is 74 y/o woman with a history of moderate severe asthma in addition to BRIDGET on BiPAP and hypogammaglobulinemia receiving IgG infusions every 3 weeks. She gets chills at home. She has been complaining of worsening dyspnea on exertion. Moderate in severity. Does improve with rest. She also has substernal chest pressure related to the shortness of breath. Her inhalers are not helping. She does use her nebulizer and does relieve some of the discomfort. She continues to use the BiPAP. The BiPAP has been affecting beneficial. However, she is waiting for replacement. She continues to get the IgG infusions at home. Does also have been very effective for her. The plan is for her to continue that therapy. Also to note she had a complete cardiac workup including cardiac cath and per report it was ok. The patient is still having dyspnea symptoms. She continues her respiratory therapy although she has not been using the inhalers as much because it causes worsens and thrush. Therefore she stopped the trelegy. We did review her PFTs demonstrating a reversible obstruction with significant response to bronchodilators. Therefore, I do think that she needs to be on a maintenance inhaler and therefore will provide her Symbicort with spacer hopefully she can tolerate a smaller does without the adverse effects with rest that she typically gets. The patient is has been getting her IgG infusions and Her BiPAP therapy has been affecting beneficial is no issues with that. 08/19/2023 the patient is here for pulmonary follow-up visit. The patient is feeling a lot better. She is now back to her baseline. She continues use her respiratory therapy. We did review her imaging studies including a CT of the chest demonstrating no acute disease. She still gets these episodes of cough and productive in nature difficult to expectorate the phlegm. She get a Acapella valve but does not seem to be working effectively. She tried [id number] Mucinex the high dose to see if this is helpful in providing good mucus clearance. If not she is going to try to get a sputum culture. She has left than on the CT scan of the chest that I see that is concerning. She continues to receive the IVIG every 3 weeks without any issues. Her blood pressure seems to be doing better. As far as vaccinations he has got all her vaccines except for the RT vaccine. She will get that as well as possible. Otherwise follow-up in 6 months. 01/25/2024 the patient is here for a pulmonary follow-up visit. Overall she is doing okay although she has had issues with her insurance. The patient did have a worsening cough over the winter. With thick tenacious mucus difficult to clear. She almost call the office but she has not to. The symptoms did improve with time. She continues use her respiratory therapy. Now Symbicort is no longer covered by her insurance. Initially weight Center Breo since she was already on Incruse. There was a question about the powder inhalers so then we sent her Dulera as well. Now she has a lot of different inhalers. We need to make sure that she does not over medicate. Therefore I did spend some time with her explaining to her which inhalers to use. She will continue with her Symbicort until she runs out. Then after that she can switch over to Breo and continue using her Incruse. If she tolerates the Breo and Incruse well then we can consider poorly seeing her on Trelegy in the future. If she does not tolerate the powder inhaler then at that point she can try the Dulera. She will call if issues arise. In the meantime she continues with the IVIG infusions every 3 weeks. In addition to that she has been on the BiPAP therapy the BiPAP therapy has been affecting beneficial. She does use it for more than 4 hours a night. No issues with the mask or response to therapy. 05/22/2024 the patient is here for sick visit. Apparently the end the April she developed COVID-19. The patient did take Paxlovid. Subsequently after that she did have rebound symptoms and she was having worsening respiratory symptoms. She then tested positive again. The patient continue conservative therapy. She also was taking Mucinex. She continues use her respiratory therapy as prescribed. She also required additional cortical steroid therapy to decrease the inflammation of the airways. The patient is no better. She still having to use her nebulizer 3 to 4 times a day. Just before the visit today she did do a couple treatments. Still feels chest tightness and wheezing. I did offer her Solu-Medrol intramuscularly however, the patient does have diabetes and that will cause her to have significantly elevated sugars. Therefore, will go ahead and start her on antibiotics. She already completed a course of doxycycline. Also will give another course of Medrol. She can continue to use her respiratory therapy as prescribed. The patient also has new inhalers and we did discuss them. If the patient is no better she will call otherwise will follow-up in July during her regular follow-up visit. 08/01/2024 the patient is here for a pulmonary follow-up visit. Overall she is doing okay. Does complaint of hoarseness and some difficulty with layering sometimes gets a little ?tight?. Likely related to vocal cord dysfunction. We did talk about different triggers that could potentially be worsening that. She does use Dulera. Will go ahead and switch over to Dulera with a spacer to try to minimize irritation from the inhalers themselves. In the meantime she feels like she has some little lesions on her back with the throat. I did look. They look like follicles will likely secondary to chronic postnasal drip. However, because her immunodeficiency would not be unreasonable to place her on chlorhexidine mouthwash. As far as her cough she continues have productive cough consistent with chronic bronchitis. She has already maximizing her respiratory therapy. We did talk about Daliresp as an option but, she is going to start Ozempic soon nasal at 0 1 start him to many medications that can affect her GI system. In addition to that she can try the new Ohtuvayre nebulized solution that she could use twice a day to try to minimize the respiratory symptoms. I will have her read up on to see if this something she wants to try. Otherwise she will continue on the current respiratory regimen. We did talk about her vaccines which once she needs to do. She continues to use her BiPAP at nighttime. She does use it for more than 4 hours a night. In addition to that she continues on the IVIG therapy. If any issues arise she will call for earlier assessment. 10/30/2024 the patient is here for sick visit. She started developing worsening respiratory symptoms last week. Started developing significant chest tightness and cough. Can not sleep at nighttime. Moderate to severe. She is very tired and weak. She went to the [facility] ER where she has tested for COVID RSV and flu which all negative. She had an x-ray which I personally reviewed demonstrating some airway changes and some congestion to the right base. Likely some component of bronchitis with only pneumonia. She was given a course of doxycycline. The patient still no better she is actually feeling worse. She has significant wheezing on exam. Were given to treatments with levalbuterol and she will receive Solu-Medrol. In addition to that will probably expand her antibiotic regimen. 01/29/2025 the patient is here for pulmonary follow-up visit. She is doing a lot better now. She is very sick when she was has here she was given multiple antibiotics and also Solu-Medrol. She did complete the prednisone back to her baseline. She also had a chest x-ray done which was personally by me without any acute disease which is reassuring. The patient continues to receive the IVIG therapy through the tertiary center mobility [facility]. She is tolerating that well. She is going to have blood work with them as well. The patient does complain of issues with hoarseness specially from the Dulera. She has already tried a spacer. Therefore will switch her over to Alvesco and also will switch her to Anoro in order to provide her with a better inhaled cortical steroid that will not irritate the larynx as much. In the meantime will go ahead and have her continue using his spacer. Otherwise patient is doing well, I am hoping that the new respiratory regimen helps her without does significant effects of the adverse hoarseness. She does tolerate that will go ahead and continue it and she will follow-up sometime in the fall specially since she has a hard time with her breathing then. 05/10/2025 the patient is here for pulmonary follow-up visit. She has been sick now for about 5 days with the upper respiratory illness. She is getting raspy voice hoarseness. Also sore throat. She feels some chest congestion as well. She is concerned is going to go down to her lungs. She continues on the IVIG through her doctors in [facility], [place]. The appears to be affecting beneficial. The patient will have blood work including additional IgE a IgM levels and IgE levels checked. Will also check her titers for COVID to see if she is responding to the COVID vaccine. She continues on her respiratory inhalers with good effect. Has not required any prednisone which is reassuring. [facility] Medical History (Updated 08/05/24 @ 18:07 by Delfino Osorio MD) Vocal cord dysfunction Asbestos exposure Hypogammaglobulinemia BRIDGET treated with BiPAP Asthma Social History Patient Tobacco Use Status: Former Tobacco user Years Smoked: 20 Review of Systems Const Reports fatigue and Denies night sweats ENT Denies change in voice, Reports hoarseness, Denies lip swelling, Denies mouth pain, Reports nasal congestion, Reports nasal discharge and Denies tongue swelling Card Reports dyspnea and Reports dyspnea on exertion Resp Reports chest congestion, Reports cough, Denies pain on inspiration, Reports dyspnea, Reports dyspnea on exertion and Reports wheezing GI Denies abdominal pain Musc Denies no additional complaints Neuro Denies Neuro-related abnormal movements Psych Denies no additional complaints Endo Reports fatigue Preston/Lymph Denies easy bleeding and Denies lymphadenopathy Aller/Immun Denies lip swelling, Denies tongue swelling and Reports wheezing Physical Exam Vital Signs: Last Vital Signs Pulse 86 05/10/25 11:11 BP 144/54 H 05/10/25 11:11 Pulse Ox 98 05/10/25 11:11 Oxygen Delivery Method Room Air 05/10/25 11:11 BMI result Body Mass Index 44.6 Const General: comfortable and alert HEENT General nose exam: Abnormal external nose present and Nasal discharge present Throat: Yes posterior oropharynx abnormal (erythema and lymphoid follicles) and Yes cobblestoning Eyes Pupils: Equal, round and reactive pupils present Neck Neck: Yes normal visual inspection, Yes full ROM and Yes no lymphadenopathy Chest Chest palpation & inspection: normal inspection of the chest Resp Effort & Inspection: normal respiratory effort Auscultation: no rhonchi, no wheezes and diminished lung sounds Cardio Rate: regular rate Rhythm: regular rhythm Heart sounds: S1 normal heart sound present and S2 normal heart sound present GI Palpation (GI): Soft to palpation and nontender Auscultation: normal bowel sounds General: Yes no CVA tenderness Back/Spine/Pelvis Back: no CVA tenderness Skin General skin exam: rashes and/or lesions noted Neuro Cranial nerves: Yes Equal, round and reactive pupils present Assessment & Plan Assessment & Plan (1) Asthma: Code(s): J45.909 - Unspecified asthma, uncomplicated Category: Medical Qualifiers: Asthma complication type: with acute exacerbation Asthma persistence: persistent Asthma severity: moderate Qualified Code(s): J45.41 - Moderate persistent asthma with (acute) exacerbation (2) BRIDGET treated with BiPAP: Code(s): G47.33 - Obstructive sleep apnea (adult) (pediatric) Category: Medical (3) Hypogammaglobulinemia: Code(s): D80.1 - Nonfamilial hypogammaglobulinemia Category: Medical (4) Asbestos exposure: Code(s): Z77.090 - Contact with and (suspected) exposure to asbestos Category: Medical (5) Bronchitis: Code(s): J40 - Bronchitis, not specified as acute or chronic Category: Medical (6) Vocal cord dysfunction: Code(s): J38.3 - Other diseases of vocal cords Category: Medical Plan Cough medicine continue Alvesco continue Anoro ION as needed IVIG every 3 weeks, should get pretreatment to avoid/minimize reactions continue mucinex DM Continue BIPAP Bloodwork Afrin x 3-5 days only Doxycycline if worsens F/U 4-6 months Orders: Orders SARS COV2 IgG 05/10/25 D80.1 - Nonfamilial hypogammaglobulinemia, J45.41 - Moderate persistent asthma with (acute) exacerbation Immunoglobulins,IgG IgA IgM 05/10/25 D80.1 - Nonfamilial hypogammaglobulinemia, J45.41 - Moderate persistent asthma with (acute) exacerbation Immunoglobulin E 05/10/25 D80.1 - Nonfamilial hypogammaglobulinemia, J45.41 - Moderate persistent asthma with (acute) exacerbation Erythrocyte Sedimentation Rate 05/10/25 D80.1 - Nonfamilial hypogammaglobulinemia, J45.41 - Moderate persistent asthma with (acute) exacerbation SARS-COV-2 IgG Rambo, Semi-Qnt 05/10/25 D80.1 - Nonfamilial hypogammaglobulinemia, J45.41 - Moderate persistent asthma with (acute) exacerbation Complete Blood Count Auto Diff 05/10/25 D80.1 - Nonfamilial hypogammaglobulinemia, J45.41 - Moderate persistent asthma with (acute) exacerbation Medications: New doxycycline monohydrate 100 mg PO BID 28 tabs 1RF 14 days doxycycline monohydrate 100 mg PO BID 28 tabs 0RF 14 days Changed From Ventolin HFA 90 mcg/actuation (albuterol sulfate) 2 puffs inhalation QID PRN 54 ea 3RF for wheezing NS To Ventolin HFA 90 mcg/actuation (albuterol sulfate) 2 puffs inhalation QID PRN 3 ea 3RF for wheezing 90 days NS Coding Level of Care Code Est Pt Level 4 (66494) Complex EM visit Add On G2211 Diagnoses Moderate persistent asthma with acute exacerbation J45.41 Asthma complication type: with acute exacerbation Asthma persistence: persistent Asthma severity: moderate BRIDGET treated with BiPAP G47.33 Hypogammaglobulinemia D80.1 Asbestos exposure Z77.090 Bronchitis J40 Vocal cord dysfunction J38.3 Time Spent (min) 17
[2025-05-10 11:11] VITALS: BP 144/54; PULSE 86; O2SAT 98; BMI 44.6
--- OUTSIDE RECORDS SUMMARY | 2025-05-10 12:10 | XMS_ITS | Encounter Summary ---
Author Organization [facility] Address [address] [place] [address] Care Team Providers Care Manager Of Internal Name Role Phone Justice Rivero PA-C Primary Care Provider Erasmo Heredia MD Unavailable Marisa Patel NP Unavailable [phone] Reason for Visit * Reason Onset Date Comments Information Needed 01/20/2021 Encounter Details Date Type Department Care Team Description 01/20/2021 Telephone Adult Medicine [address] [id number] Justice Rivero PA-C [address] [place] [address] [id number] Information Needed Social History Tobacco Use Types Packs/Day Years Used Date Smoking Tobacco: Former Cigarettes 0 09/28/1969 - 09/05/1989 Smokeless Tobacco: Never Comments:3ppd for 20 years Alcohol Use Standard Drinks/Week Comments No 0 (1 standard drink = 0.6 oz pur e alcohol) Sex Assigned at Date Recorded Female 02/15/2020 4:50 PM E DT Job Start Date Occupation Industry Not on file Not on file Not on file COVID-19 Exposure Response Date Recorded In the last month, have you been in contact with someone who was confirmed or suspected to have Coronavirus / COVID-19? No / Unsure 01/09/2021 10:00 AM EDT documented as of this encounter Miscellaneous Notes * Telephone Encounter - Dyana Cason C.M.A - 01/20/2021 3:07 PM EDT Faxed tlr * Telephone Encounter - Reyes Beckman - 01/20/2021 9:10 AM EDT Information Needed Who is calling: MD office Information being requested? EKG 01/09/21 - pt has pre op scheduled for tomorrow with their office. If information is regarding a referral and notes are needed- transfer call to HIM department If other information is needed, was an TOMI signed? NO How is the information to be communicated back to the caller? Faxed to [phone] documented in this encounter Plan of Treatment Not on file documented as of this encounter Visit Diagnoses Not on filedocumented in this encounter Care Teams Manager Of Internal Relationship Specialty Start Date End Date Justice Rivero PA-C [address] [place] [address] PCP - General Internal Medicine 12/19/20 Erasmo Heredia MD [address] [place] [address] [employer] Targeting Supervisor Cardiovascular Disease 09/17/21 Marisa Patel NP [address] [place] [address] Cardiology 06/17/23 documented as of this encounter
--- OUTSIDE RECORDS SUMMARY | 2025-05-10 12:10 | XMS_ITS | Encounter Summary ---
Author Organization [facility] Address [address] [place] [address] Care Team Providers Care Analytical Research Program Manager Name Role Phone Justice Rivero PA-C Primary Care Provider Erasmo Heredia MD Unavailable Marisa Patel NP Unavailable [phone] Reason for Visit * Reason Onset Date Comments APPOINTMENT 07/04/2024 Encounter Details Date Type Department Care Team Description 07/04/2024 Telephone Cardio PVC [address] [facility] [address] [place] [address] Erasmo Heredia MD [address] [place] [id number] APPOINTMENT Social History Tobacco Use Types Packs/Day Years [...] file Not on file Not on file documented as of this encounter Miscellaneous Notes * Telephone Encounter - Yojana Villanueva - 07/04/2024 2:54 PM EDT 07/04/24 I left a message for pt with both appointments. documented in this encounter Plan of Treatment Not on file documented as of this encounter Visit Diagnoses Not on filedocumented in this encounter Care Teams Analytical Research Program Manager Relationship Specialty Start Date End Date Justice Rivero PA-C [address] [place] [address] PCP - General Internal Medicine 12/19/20 Erasmo Heredia MD [address] [place] [address] Stretcher Leveler Operator Cardiovascular Disease 09/17/21 Marisa Patel NP [address] [place] [address] Cardiology 06/17/23 documented as of this encounter
--- OUTSIDE RECORDS SUMMARY | 2025-05-10 12:10 | XMS_ITS | Encounter Summary ---
Author Organization [facility] Address [address] [place] [address] Care Team Providers Care Keyboard Action Assembler Name Role Phone Dominic Gardiner MD Primary Care Provider [phone] Justice Rivero PA-C Primary Care Provider [phone] Erasmo Heredia MD Unavailable Marisa Patel NP Unavailable [phone] Encounter Details Date Type Department Care Team Description 09/29/2017 Loom Winder Tender Report Medical Records [address] [place] [address] Afshan Mckeon Social History Tobacco Use Types Packs/Day Years Used Date Smoking Tobacco: Former Cigarettes Q uit: 09/05/1989 Smokeless Tobacco: Never Comments:3ppd for 20 [...] on filedocumented in this encounter Care Teams Keyboard Action Assembler Relationship Specialty Start Date End Date Dominic Gardiner MD [address] [place], [place] [phone] PCP - General Internal Medicine 05/19/15 12/18/20 Justice Rivero PA-C [address] [place], [place] [phone] PCP - General Internal Medicine 12/19/20 Erasmo Heredia MD [address] [place], [place] [phone] Auto Repair Technician Cardiovascular Disease 09/17/21 Marisa Patel NP [address] [place] [address] Cardiology 06/17/23 documented as of this encounter
--- OUTSIDE RECORDS SUMMARY | 2025-05-10 12:10 | XMS_ITS | Encounter Summary ---
Author Organization [facility] Address [address] [place] [address] Care Team Providers Care Home And School Visitor Name Role Phone Justice Rivero PA-C Primary Care Provider [phone] Erasmo Heredia MD Unavailable Marisa Patel NP Unavailable [phone] Encounter Details Date Type Department Care Team Description 07/15/2021 Pt. Non Urgent Medical Question Adult Medicine [address] [address] Clari Larkin PA-C [address] [place] [address] [phone] Social History Tobacco Use Types Packs/Day Years [...] have Coronavirus / COVID-19? No / Unsure 07/10/2021 3:26 PM EDT documented as of this encounter Progress Notes * Candace Chicas - 07/15/2021 11:40 AM EST Please see Mychart msg and advise Pt requesting update on request for rollator from 07/06/2021 documented in this encounter Miscellaneous Notes * Telephone Encounter - Candace Chicas - 07/15/2021 11:36 AM ESTFrom: Gabi Sutton To: Javed Larkin Sent: 07/15/2021 11:24 AM EST Subject: RE: Rollator requested 06/25/21 Sorry to bother you with this, but I have not heard from anyone about ordering the rollator. I've also not heard from [facility] for an appointment. I will try calling them myself today, but didn't know what to do about the walker. Just keeping you up to date from this end. documented in this encounter Plan of Treatment Not on file documented as of this encounter Visit Diagnoses Not on filedocumented in this encounter Care Teams Home And School Visitor Relationship Specialty Start Date End Date Justice Rivero PA-C [address] [place] [address] PCP - General Internal Medicine 12/19/20 Erasmo Heredia MD [address] [place] [address] Power Barker Operator Cardiovascular Disease 09/17/21 Marisa Patel NP [address] [place] [address] Cardiology 06/17/23 documented as of this encounter
--- OUTSIDE RECORDS SUMMARY | 2025-05-10 12:10 | XMS_ITS | Encounter Summary ---
Author Organization [facility] Address [address] [place] [address] Care Team Providers Care Infrastructure Director Name Role Phone Justice Rivero PA-C Primary Care Provider [phone] Erasmo Heredia MD Unavailable Marisa Patel NP Unavailable Reason for Visit * Reason Onset Date Comments TEST RESULTS 12/13/2023 Encounter Details Date Type Department Care Team Description 12/13/2023 Telephone Adult Medicine [address] [phone] Justice Rivero PA-C [address] [place] [address] [phone] TEST RESULTS Social History Tobacco Use Types Packs/Day Years [...] encounter Miscellaneous Notes * Telephone Encounter - Kacy Cormier - 12/13/2023 11:51 AM EDT Patient wants to go over the lab results with the provider. Please advise * Telephone Encounter - Aide Marindayton - 12/13/2023 11:47 AM EDT Inform patient: ANY URGENT OR ABNORMAL RESULTS WIILL RESULT IN A CALL BACK TO THE PATIENT GLENROY. Patient very anixous to hear back, states she saw her results on mychart and thinks she may have aninfection. Mentions her reason for worry is because she had 2 total knee replacements and can't wait on being treated for infections. Type of test: : urinalysis Date test was performed: 12/12/2023 Where was the test performed: [facility] Who ordered this test?: Bishnu Rivero Is the doctor here today?: YES Can the message wait until the doctor returns?: NO IF PATIENT'S PCP IS NOT IN INSTRUCT PATIENT THAT THEY WILL RECEIVE A CALL BACK WHEN THE PCP IS IN THE OFFICE NEXT. documented in this encounter Plan of Treatment Not on file documented as of this encounter Visit Diagnoses Not on filedocumented in this encounter Care Teams Infrastructure Director Relationship Specialty Start Date End Date Justice Rivero PA-C [address] [place] [address] PCP - General Internal Medicine 12/19/20 Erasmo Heredia MD [address] [place] [address] Auctioneer Automobile Cardiovascular Disease 09/17/21 Marisa Patel NP [address] [place] [address] Cardiology 06/17/23 documented as of this encounter
--- OUTSIDE RECORDS SUMMARY | 2025-05-10 12:10 | XMS_ITS | Encounter Summary ---
Author Organization [facility] Address [address] [place] [address] Care Team Providers Care Refund Clerk Name Role Phone Julio Elliott MD Primary Care Provider Lakeisha Rickey Vaughan MD Primary Care Provider Unavail able Dominic Gardiner MD Primary Care Provider Justice Rivero PA-C Primary Care Provider [phone] Erasmo Heredia MD Unavailable Marisa Patel NP Unavailable [phone] Encounter Details Date Type Department Care Team Description 12/27/2012 Supervisor Sulfuric Acid Plant Report Medical Records [address] [place] [address] Ozzy Riley MD Social History Tobacco Use Types Packs/Day Years [...] on filedocumented in this encounter Care Teams Refund Clerk Relationship Specialty Start Date End Date Julio Elliott MD PCP - General Internal Medicine 10/31/12 Rickey Delaney MD PCP - General Internal Medicine 08/30/14 05/18/15 Dominic Gardiner MD [address] [place] [address] PCP - General Internal Medicine 05/19/15 12/18/20 Justice Rivero PA-C [address] [place] [address] [phone] PCP - General Internal Medicine 12/19/20 Erasmo Heredia MD [address] [place] [address] [phone] Rigging Loft Mechanic Cardiovascular Disease 09/17/21 Marisa Patel NP [address] [place], [place] [phone] Cardiology 06/17/23 documented as of this encounter
--- OUTSIDE RECORDS SUMMARY | 2025-05-10 12:10 | XMS_ITS | Encounter Summary ---
Author Organization [facility] Address [address] [place] [address] Care Team Providers Care Sign Artist Name Role Phone Justice Rivero PA-C Primary Care Provider [phone] Erasmo Heredia MD Unavailable Marisa Patel NP Unavailable [phone] Encounter Details Date Type Department Care Team Description 01/25/2024 SCAN Medical Records [address] [place] [address] Abstract, Provider Social History Tobacco Use Types Packs/Day Years [...] on file documented as of this encounter Procedures Procedure Name Priority Date/Time Associated Diagnosis Comments OUTSIDE CT Routine 01/25/2024 documented in this encounter Results * OUTSIDE CT (01/25/2024) Provider Default RADIOLOGY documented in this encounter Visit Diagnoses Not on filedocumented in this encounter Care Teams Sign Artist Relationship Specialty Start Date End Date Justice Rivero PA-C [address] [place] [address] PCP - General Internal Medicine 12/19/20 Erasmo Heredia MD [address] [place] [address] Mink Slicer Cardiovascular Disease 09/17/21 Marisa Patel NP [address] [place] [address] Cardiology 06/17/23 documented as of this encounter
--- OUTSIDE RECORDS SUMMARY | 2025-05-10 12:10 | XMS_ITS | Encounter Summary ---
Author Organization [facility] Address [address] [place] [address] Care Team Providers Care Environmental Protection Officer Name Role Phone Julio Rodriges MD Primary Care Provider Lakeisha Rickey Vaughan MD Primary Care Provider Unavail able Dominic Gardiner MD Primary Care Provider Justice Rivero PA-C Primary Care Provider Erasmo Heredia MD Unavailable Marisa Patel NP Unavailable [phone] Reason for Visit * Reason Onset Date Comments Faxed Order 10/02/2013 APRIA Encounter Details Date Type Department Care Team Description 10/02/2013 Telephone Adult Medicine [address] [address] Julio Rodriges MD Faxed Order ([facility]) Social History Tobacco Use Types Packs/Day Years [...] encounter Miscellaneous Notes * Telephone Encounter - Carrie Valles M.A. - 10/04/2013 2:45 PM EST Form located on dr rodriges orginally not a Pod message * Telephone Encounter - Nora Dorsey - 10/04/2013 2:20 PM EST Nadia chung aprdania is calling on status of order, please fax to [phone] * Telephone Encounter - Cristina Beckman - 10/02/2013 4:09 PM EST 2nd request, Oximetry Testing Request, please sign order and fax back to [phone]. documented in this encounter Plan of Treatment Not on file documented as of this encounter Visit Diagnoses Not on filedocumented in this encounter Care Teams Environmental Protection Officer Relationship Specialty Start Date End Date Julio Rodriges MD PCP - General Internal Medicine 10/31/12 Rickey Delaney MD PCP - General Internal Medicine 08/30/14 05/18/15 Dominic Gardiner MD [address] [place] [address] PCP - General Internal Medicine 05/19/15 12/18/20 Justice Rivero PA-C [address] [place] [address] PCP - General Internal Medicine 12/19/20 Erasmo Heredia MD [address] [place] [address] Fuel Oil Clerk Cardiovascular Disease 09/17/21 Marisa Patel NP [address] [place] [address] Cardiology 06/17/23 documented as of this encounter
--- OUTSIDE RECORDS SUMMARY | 2025-05-10 12:10 | XMS_ITS | Encounter Summary ---
Author Organization [facility] Address [address] [place] [address] Care Team Providers Care Cheese Factory Worker Name Role Phone Saritha Houston MD Primary Care Provider [phone] Julio Elliott MD Primary Care Provider Lakeisha Rickey Vaughan MD Primary Care Provider Unavail able Dominic Gardiner MD Primary Care Provider Justice Rivero PA-C Primary Care Provider [phone] Erasmo Heredia MD Unavailable Marisa Patel NP Unavailable [phone] Encounter Details Date Type Department Care Team Description 09/06/2012 Pt. Referral Request [facility] MyChart [address] [place] [address] Md Luis Social History Tobacco Use Types Packs/Day Years Used Date Smoking Tobacco: Former Cigarettes Q uit: 09/05/1989 Smokeless Tobacco: Never Alcohol Use Standard [...] on filedocumented in this encounter Care Teams Cheese Factory Worker Relationship Specialty Start Date End Date Saritha Houston MD [address] [place] [address] PCP - General Internal Medicine 08/04/11 10/30/12 Julio Elliott MD [address] [place] [address] PCP - General Internal Medicine 10/31/12 08/29/14 Rickey Delaney MD [address] [place] [address] PCP - General Internal Medicine 08/30/14 05/18/15 Dominic Gardiner MD [address] [place] [address] PCP - General Internal Medicine 05/19/15 12/18/20 Justice Rivero PA-C [address] [place] [address] PCP - General Internal Medicine 12/19/20 Erasmo Heredia MD [address] [place] [address] Cheesemaker Helper Cardiovascular Disease 09/17/21 Marisa Patel NP [address] [place] [address] Cardiology 06/17/23 documented as of this encounter
--- OUTSIDE RECORDS SUMMARY | 2025-05-10 12:10 | XMS_ITS | Encounter Summary ---
Author Organization [facility] Address [address] [place] [address] Care Team Providers Care Floor Cashier Name Role Phone Justice Rivero PA-C Primary Care Provider [phone] Erasmo Heredia MD Unavailable Marisa Patel NP Unavailable [phone] Encounter Details Date Type Department Care Team Description 12/19/[address] [facility] [address] [place] [address] [phone] Justice Rivero PA-C [address] [place] [address] [phone] Social History Tobacco Use Types Packs/Day Years [...] have Coronavirus / COVID-19? No / Unsure 12/04/2020 1:19 PM EDT documented as of this encounter Miscellaneous Notes * Telephone Encounter - Mayra Terence - 12/19/2020 11:22 AM EDT Gabi Sutton - Information to update my medical record Information to update my medical record Gabi Garibayier Sent: TueDecember 19, 2020 10:23 AM To: [facility] Patient Services Pool Gabi Sutton : 1950 Pt Work: Pt Home: Entered: [phone] Message Topic: Complaint-Customer Service Please update my medical record with the following information: I would like ALICIA Ardon listed in my medical record as my PCP now that Dr. Tushar Gardiner is retired. ? Dr. Delfino Osorio M.D. from [facility], has been my Pile Driver for many years. ? With that said, please remove Dr. Vinay Morrow, Pile Driver from my record. ?COVID-19 Vaccinations Received: ?11-15-2020 ?Moderna ??[id number] ? [facility] ?12-13-2020 ?Moderna ?? [id number] ?[facility] If I have given this information to the wrong department please forward to the correct one. Many thanks for ??your attention in these matters. Sincerely, Gabi Sutton documented in this encounter Plan of Treatment Not on file documented as of this encounter Visit Diagnoses Not on filedocumented in this encounter Care Teams Floor Cashier Relationship Specialty Start Date End Date Justice Rivero PA-C [address] [place] [address] PCP - General Internal Medicine 12/19/20 Erasmo Heredia MD [address] [place] [address] Ice Guard Skating Rink Cardiovascular Disease 09/17/21 Marisa Patel NP [address] [place] [address] Cardiology 06/17/23 documented as of this encounter
--- OUTSIDE RECORDS SUMMARY | 2025-05-10 12:10 | XMS_ITS | Encounter Summary ---
Author Organization [facility] Address [address] [place] [address] Care Team Providers Care President Celebrity Acquistion Name Role Phone Dominic Gardiner MD Primary Care Provider [phone] Justice Rivero PA-C Primary Care Provider [phone] Erasmo Heredia MD Unavailable Marisa Patel NP Unavailable [phone] Encounter Details Date Type Department Care Team Description 07/18/2017 Transfer Records Medical Records [address] [place] [address] Abstract, Provider Social History Tobacco Use Types [...] on filedocumented in this encounter Care Teams President Celebrity Acquistion Relationship Specialty Start Date End Date Dominic Gardiner MD [address] [place] [address] [phone] PCP - General Internal Medicine 05/19/15 12/18/20 Justice Rivero PA-C [address] [place] [address] PCP - General Internal Medicine 12/19/20 Erasmo Heredia MD [address] [place] [address] Medical Investigator Cardiovascular Disease 09/17/21 Marisa Patel NP [address] [place] [address] Cardiology 06/17/23 documented as of this encounter
--- OUTSIDE RECORDS SUMMARY | 2025-05-10 12:10 | XMS_ITS | Encounter Summary ---
Author Organization [facility] Address [address] [place] [address] Care Team Providers Care Swine Extension Field Specialist Name Role Phone Justice Rivero PA-C Primary Care Provider [phone] Erasmo Heredia MD Unavailable Marisa Patel NP Unavailable [phone] Encounter Details Date Type Department Care Team Description 03/09/2024 Pt. Referral Request [facility] Luis [address] [place] [address] [phone] Md Luis Social History Tobacco Use Types [...] on filedocumented in this encounter Care Teams Swine Extension Field Specialist Relationship Specialty Start Date End Date Justice Rivero PA-C [address] [place] [address] [phone] PCP - General Internal Medicine 12/19/20 Erasmo Heredia MD [address] [place] [address] Limousine Rental Clerk Cardiovascular Disease 09/17/21 Marisa Patel NP [address] [place] [address] Cardiology 06/17/23 documented as of this encounter
--- OUTSIDE RECORDS SUMMARY | 2025-05-10 12:10 | XMS_ITS | Encounter Summary ---
Author Organization [facility] Address [address] [place] [address] Care Team Providers Care Combat Systems Engineer Name Role Phone Julio Elliott MD Primary Care Provider Lakeisha Rickey Vaughan MD Primary Care Provider Unavail able Dominic Gardiner MD Primary Care Provider Justice Rivero PA-C Primary Care Provider [phone] Erasmo Heredia MD Unavailable Marisa Patel NP Unavailable Encounter Details Date Type Department Care Team Description 11/16/2012 [facility] [address] [place] [address] Md Luis Social History Tobacco Use Types [...] on filedocumented in this encounter Care Teams Combat Systems Engineer Relationship Specialty Start Date End Date Julio Elliott MD PCP - General Internal Medicine 10/31/12 Rickey Delaney MD PCP - General Internal Medicine 08/30/14 05/18/15 Dominic Gardiner MD [address] [place] [address] PCP - General Internal Medicine 05/19/15 12/18/20 Justice Rivero PA-C [address] [place] [address] [phone] PCP - General Internal Medicine 12/19/20 Erasmo Heredia MD [address] [place] [address] [phone] Acidity Tester Cardiovascular Disease 09/17/21 Marisa Patel NP [address] [place] [address] [phone] Cardiology 06/17/23 documented as of this encounter
--- OUTSIDE RECORDS SUMMARY | 2025-05-10 12:10 | XMS_ITS | Encounter Summary ---
Author Organization [facility] Address [address] [place] [address] Care Team Providers Care Security Assessor Name Role Phone Justice Rivero PA-C Primary Care Provider [phone] Erasmo Heredia MD Unavailable Marisa Patel NP Unavailable [phone] Encounter Details Date Type Department Care Team Description 06/16/2021 Harvesting Manager Report Medical Records [address] [place] [address] Delfino Osorio MD Social History Tobacco Use Types Packs/Day [...] have Coronavirus / COVID-19? No / Unsure 06/19/2021 1:54 PM EDT documented as of this encounter Plan of Treatment Not on file documented as of this encounter Visit Diagnoses Not on filedocumented in this encounter Care Teams Security Assessor Relationship Specialty Start Date End Date Justice Rivero PA-C [address] [place] [address] PCP - General Internal Medicine 12/19/20 Erasmo Heredia MD [address] [place] [address] Presentation Team Member Cardiovascular Disease 09/17/21 Marisa Patel NP [address] [place] [address] Cardiology 06/17/23 documented as of this encounter
--- OUTSIDE RECORDS SUMMARY | 2025-05-10 12:10 | XMS_ITS | Encounter Summary ---
Author Organization [facility] Address [address] [place] [address] Care Team Providers Care Aluminum Can Collector Name Role Phone Dominic Gardiner MD Primary Care Provider [phone] Justice Rivero PA-C Primary Care Provider [phone] Erasmo Heredia MD Unavailable Marisa Patel NP Unavailable [phone] Encounter Details Date Type Department Care Team Description 05/12/2017 Metallurgist Process Report Medical Records [address] [place] [address] Delfino Osorio MD Social History Tobacco Use [...] on filedocumented in this encounter Care Teams Aluminum Can Collector Relationship Specialty Start Date End Date Dominic Gardiner MD [address] [place] [address] [phone] PCP - General Internal Medicine 05/19/15 12/18/20 Justice Rivero PA-C [address] [place], [place] [phone] PCP - General Internal Medicine 12/19/20 Erasmo Heredia MD [address] [place], [place] [phone] Check Writer Salesperson Cardiovascular Disease 09/17/21 Marisa Patel NP [address] [place] [address] Cardiology 06/17/23 documented as of this encounter
--- OUTSIDE RECORDS SUMMARY | 2025-05-10 12:10 | XMS_ITS | Encounter Summary ---
Author Organization [facility] Address [address] [place] [address] Care Team Providers Care Museum Attendant Name Role Phone Julio Elliott MD Primary Care Provider Lakeisha Rickey Vaughan MD Primary Care Provider Unavail able Dominic Gardiner MD Primary Care Provider [phone] Justice Rivero PA-C Primary Care Provider [phone] Erasmo Heredia MD Unavailable Marisa Patel NP Unavailable [phone] Encounter Details Date Type Department Care Team Description 10/12/2013 Grinding Machine Operator Portable Report Medical Records [address] [place] [address] Jt Overton Social History Tobacco Use Types Packs/Day Years [...] on filedocumented in this encounter Care Teams Museum Attendant Relationship Specialty Start Date End Date Lexi, Julio M., MD PCP - General Internal Medicine 10/31/12 Rickey Delaney MD PCP - General Internal Medicine 08/30/14 05/18/15 Dominic Gardiner MD [address] [place] [address] PCP - General Internal Medicine 05/19/15 12/18/20 Justice Rivero PA-C [address] [place] [address] [phone] PCP - General Internal Medicine 12/19/20 Erasmo Heredia MD [address] [place] [address] [phone] Envelope Stamping Machine Operator Cardiovascular Disease 09/17/21 Marisa Patel NP [address] [place] [address] [phone] Cardiology 06/17/23 documented as of this encounter
--- OUTSIDE RECORDS SUMMARY | 2025-05-10 12:10 | XMS_ITS | Encounter Summary ---
Author Organization [facility] Address [address] [place] [address] Care Team Providers Care Dry Kiln Worker Name Role Phone Dominic Gardiner MD Primary Care Provider + [phone] Justice Rivero PA-C Primary Care Provider [phone] Erasmo Heredia MD Unavailable Marisa Patel NP Unavailable [phone] Reason for Visit * Reason Comments E-prescribe Rx Request Encounter Details Date Type Department Care Team Description 12/16/2016 Refill Adult Medicine [address] [phone] Dominic Gardiner MD [address] [place] [address] [phone] E-prescribe Rx Request Social History Tobacco Use Types Packs/Day Years [...] encounter Miscellaneous Notes * Telephone Encounter - Angel Reese - 12/16/2016 2:30 PM EDT Patient would like script to be: E-PRESCRIBED/FAXED TO PHARMACY WHEN WAS THE PATIENT'S LAST APPOINTMENT IN ADULT MEDICINE? 12/13/16 WHEN WAS THE LAST TIME THE PATIENT SAW THEIR PCP? 10/23/15 Does patient have an upcoming appointment? Yes 06/23/17 (THE MEDICATION REQUESTED IS ON THE MED LIST ABOVE) All of the medications requested were on the CURRENT MEDS list Did you check the Pharmacy information above?: YES Patient wants: 30 -day supply Is this a mail order prescription request ? NO Patients current insurance carrier is: [place] / [place] / Product Type: MEDICARE [id number] documented in this encounter Plan of Treatment Not on file documented as of this encounter Visit Diagnoses Not on filedocumented in this encounter Care Teams Dry Kiln Worker Relationship Specialty Start Date End Date Dominic Gardiner MD [address] [place] [address] PCP - General Internal Medicine 05/19/15 12/18/20 Justice Rivero PA-C [address] [place] [address] [phone] PCP - General Internal Medicine 12/19/20 Erasmo Heredia MD [address] [place] [address] [phone] Bridges And Buildings Supervisor Cardiovascular Disease 09/17/21 Marisa Patel, CRISTINA [address] [place] [address] Cardiology 06/17/23 documented as of this encounter
--- OUTSIDE RECORDS SUMMARY | 2025-05-10 12:10 | XMS_ITS | Encounter Summary ---
Author Organization [facility] Address [address] [place] [address] Care Team Providers Care Personal Computer Network Engineer Name Role Phone Justice Rivero PA-C Primary Care Provider [phone] Erasmo Heredia MD Unavailable Marisa Patel NP Unavailable [phone] Reason for Visit * Reason Onset Date Comments radiology 10/19/2023 MRI order deferr ed Encounter Details Date Type Department Care Team Description 10/19/2023 Telephone Radiology - [address] [phone] Joy Galvan PA-C [address] [place] [address] [phone] radiology (MRI order deferred) Social History Tobacco Use Types Packs/Day Years [...] encounter Miscellaneous Notes * Telephone Encounter - Joy Galvan PA-C - 10/20/2023 7:42 AM EST This is a new issue: right clavicle pain, swelling * Telephone Encounter - Justice Rivero PA-C - 10/19/2023 9:14 PM EST I think it was a new problem, will route to Joy * Telephone Encounter - Minerva Olmos - 10/19/2023 8:57 AM EST This patient was seen in Nov for the clavicle MRI ordered with Feli rivero. Looks like it was done external, but results and follow up were provided to patient. I can't see that message. Should this be a one year follow up or 6 month or not at all? I have deferred it until nov for the time being. Let me know and will need to change reason for exam if needed earlier. Thanks documented in this encounter Plan of Treatment Not on file documented as of this encounter Visit Diagnoses Not on filedocumented in this encounter Care Teams Personal Computer Network Engineer Relationship Specialty Start Date End Date Justice Rivero PA-C [address] [place] [address] PCP - General Internal Medicine 12/19/20 Erasmo Heredia MD [address] [place] [address] Rod Tape Operator Cardiovascular Disease 09/17/21 Marisa Patel NP [address] [place] [address] Cardiology 06/17/23 documented as of this encounter
--- OUTSIDE RECORDS SUMMARY | 2025-05-10 12:10 | XMS_ITS | Encounter Summary ---
Author Organization [facility] Address [address] [place] [address] Care Team Providers Care Bar Staff Name Role Phone Justice Rivero PA-C Primary Care Provider Erasmo Heredia MD Unavailable Marisa Patel NP Unavailable [phone] Encounter Details Date Type Department Care Team Description 03/17/2024 Orders Only Adult Medicine [facility] [address] [place] [address] [phone] Justice Rivero PA-C [address] [place] [address] [phone] Social History Tobacco Use Types Packs/Day Years [...] on filedocumented in this encounter Care Teams Bar Staff Relationship Specialty Start Date End Date Justice Rivero PA-C [address] [place] [address] PCP - General Internal Medicine 12/19/20 Erasmo Heredia MD [address] [place] [address] Public Information Coordinator Cardiovascular Disease 09/17/21 Marisa Patel NP [address] [place] [address] Cardiology 06/17/23 documented as of this encounter
--- OUTSIDE RECORDS SUMMARY | 2025-05-10 12:10 | XMS_ITS | Encounter Summary ---
Author Organization [facility] Address [address] [place] [address] Care Team Providers Care Rotary Drill Rig Operator Name Role Phone Julio Elliott MD Primary Care Provider Lakeisha Rickey Vaughan MD Primary Care Provider Unavail able Dominic Gardiner MD Primary Care Provider Justice Rivero PA-C Primary Care Provider Erasmo Heredia MD Unavailable Marisa Patel NP Unavailable [phone] Encounter Details Date Type Department Care Team Description 04/17/2013 Dictaphone Technician Report Medical Records [address] [place] [address] Jt Thomas MD Social History Tobacco Use Types Packs/Day [...] on filedocumented in this encounter Care Teams Rotary Drill Rig Operator Relationship Specialty Start Date End Date Julio Elliott MD PCP - General Internal Medicine 10/31/12 Rickey Delaney MD PCP - General Internal Medicine 08/30/14 05/18/15 Dominic Gardiner MD [address] [place] [address] PCP - General Internal Medicine 05/19/15 12/18/20 Justice Rivero PA-C [address] [place] [address] [phone] PCP - General Internal Medicine 12/19/20 Erasmo Heredia MD [address] [place] [address] [phone] Construction Safety Consultant Cardiovascular Disease 09/17/21 Marisa Patel NP [address] [place] [address] [phone] Cardiology 06/17/23 documented as of this encounter
--- OUTSIDE RECORDS SUMMARY | 2025-05-10 12:10 | XMS_ITS | Encounter Summary ---
Author Organization [facility] Address [address] [place] [address] Care Team Providers Care Academic Adviser Name Role Phone Dominic Gardiner MD Primary Care Provider [phone] Justice Rivero PA-C Primary Care Provider [phone] Erasmo Heredia MD Unavailable Marisa Patel NP Unavailable [phone] Encounter Details Date Type Department Care Team Description 03/31/2017 After School Teacher Report Medical Records [address] [place] [address] Jt Thomas MD Social History Tobacco Use [...] on filedocumented in this encounter Care Teams Academic Adviser Relationship Specialty Start Date End Date Dominic Gardiner MD [address] [place], [place] [phone] PCP - General Internal Medicine 05/19/15 12/18/20 Justice Rivero PA-C [address] [place], [place] [phone] PCP - General Internal Medicine 12/19/20 Erasmo Heredia MD [address] [place], [place] [phone] House Piping Inspector Cardiovascular Disease 09/17/21 Marisa Patel NP [address] [place] [address] Cardiology 06/17/23 documented as of this encounter
--- OUTSIDE RECORDS SUMMARY | 2025-05-10 12:10 | XMS_ITS | Encounter Summary ---
Author Organization [facility] Address [address] [place] [address] Care Team Providers Care Calender Operator Name Role Phone Dominic Gardiner MD Primary Care Provider [phone] Justice Rivero PA-C Primary Care Provider [phone] Erasmo Heredia MD Unavailable Marisa Patel NP Unavailable [phone] Encounter Details Date Type Department Care Team Description 10/07/2017 Receiving Barn Custodian Report Medical Records [address] [place] [address] Jv Cleaning MD Social History Tobacco Use Types Packs/Day [...] on filedocumented in this encounter Care Teams Calender Operator Relationship Specialty Start Date End Date Dominic Gardiner MD [address] [place] [address] PCP - General Internal Medicine 05/19/15 12/18/20 Justice Rivero PA-C [address] [place], [place] [phone] PCP - General Internal Medicine 12/19/20 Erasmo Heredia MD [address] [place] [address] Die Maker Cardiovascular Disease 09/17/21 Marisa Patel NP [address] [place] [address] Cardiology 06/17/23 documented as of this encounter
--- OUTSIDE RECORDS SUMMARY | 2025-05-10 12:10 | XMS_ITS | Encounter Summary ---
Author Organization [facility] Address [address] [place] [address] Care Team Providers Care Flight Operations Coordinator Name Role Phone Dominic Gardiner MD Primary Care Provider [phone] Justice Rivero PA-C Primary Care Provider [phone] Erasmo Heredia MD Unavailable Marisa Patel NP Unavailable [phone] Encounter Details Date Type Department Care Team Description 09/30/2016 Business Doc Medical Records [address] [place] [address] Abstract, Provider Social History Tobacco Use Types [...] on filedocumented in this encounter Care Teams Flight Operations Coordinator Relationship Specialty Start Date End Date Dominic Gardiner MD [address] [place] [place] [address] [phone] PCP - General Internal Medicine 05/19/15 12/18/20 Justice Rivero PA-C [address] [place] [address] PCP - General Internal Medicine 12/19/20 Erasmo Heredia MD [address] [place] [address] Risk Assessor Cardiovascular Disease 09/17/21 Marisa Patel NP [address] [place] [address] Cardiology 06/17/23 documented as of this encounter
--- OUTSIDE RECORDS SUMMARY | 2025-05-10 12:10 | XMS_ITS | Encounter Summary ---
Author Organization [facility] Address [address] [place] [address] Care Team Providers Care Shearer Helper Name Role Phone Julio Elliott MD Primary Care Provider Lakeisha Rickey Vaughan MD Primary Care Provider Unavail able Dominic Gardiner MD Primary Care Provider Justice Rivero PA-C Primary Care Provider Erasmo Heredia MD Unavailable Marisa Patel NP Unavailable [phone] Encounter Details Date Type Department Care Team Description 02/19/2013 Transfer Records Medical Records [address] [place] [address] Abstract, Provider Social History Tobacco Use Types [...] on filedocumented in this encounter Care Teams Shearer Helper Relationship Specialty Start Date End Date Julio Elliott MD PCP - General Internal Medicine 10/31/12 Rickey Delaney MD PCP - General Internal Medicine 08/30/14 05/18/15 Dominic Gardiner MD [address] [place] [address] PCP - General Internal Medicine 05/19/15 12/18/20 Justice Rivero PA-C [address] [place] [address] [id number] PCP - General Internal Medicine 12/19/20 Erasmo Heredai MD [address] [place] [address] [phone] Remote Pilot Operator Cardiovascular Disease 09/17/21 Marisa Patel NP [address] [place] [address] Cardiology 06/17/23 documented as of this encounter
--- OUTSIDE RECORDS SUMMARY | 2025-05-10 12:10 | XMS_ITS | Encounter Summary ---
Author Organization [facility] Address [address] [place] [address] Care Team Providers Care Logistical Engineer Name Role Phone Dominic Gardiner MD Primary Care Provider + [phone] Justice Rivero PA-C Primary Care Provider [phone] Erasmo Heredia MD Unavailable Marisa Patel NP Unavailable [phone] Encounter Details Date Type Department Care Team Description 10/15/2020 Business Doc Medical Records [address] [place] [address] Abstract, Provider Social History Tobacco Use Types [...] have Coronavirus / COVID-19? No / Unsure 10/13/2020 9:56 AM EST documented as of this encounter Plan of Treatment Not on file documented as of this encounter Visit Diagnoses Not on filedocumented in this encounter Care Teams Logistical Engineer Relationship Specialty Start Date End Date Dominic Gardiner MD [address] [place] [address] PCP - General Internal Medicine 05/19/15 12/18/20 Justice Rivero PA-C [address] [place] [address] [phone] PCP - General Internal Medicine 12/19/20 Erasmo Heredia MD [address] [place] [address] Hospice Patient Care Secretary Cardiovascular Disease 09/17/21 Marisa Patel NP [address] [place] [address] Cardiology 06/17/23 documented as of this encounter
--- OUTSIDE RECORDS SUMMARY | 2025-05-10 12:10 | XMS_ITS | Encounter Summary ---
Author Organization [facility] Address [address] [place] [address] Care Team Providers Care Package Winder Name Role Phone Justice Rivero PA-C Primary Care Provider + [phone] Erasmo Heredia MD Unavailable Marisa Patel NP Unavailable [phone] Encounter Details Date Type Department Care Team Description 02/07/2024 Pt. Non Urgent Medical Question Cardio PVC [address] [facility] [address] [place] [address] Marisa Patel, CRISTINA [address] [facility] [place] [address] Social History Tobacco Use Types Packs/Day Years [...] on filedocumented in this encounter Care Teams Package Winder Relationship Specialty Start Date End Date Jutsice Rivero PA-C [address] [place] [address] PCP - General Internal Medicine 12/19/20 Erasmo Heredia MD [address] [place] [address] Privacy Compliance Manager Cardiovascular Disease 09/17/21 Marisa Patel NP [address] [place] [address] Cardiology 06/17/23 documented as of this encounter
--- OUTSIDE RECORDS SUMMARY | 2025-05-10 12:10 | XMS_ITS | Encounter Summary ---
Author Organization [facility] Address [address] [place] [address] Care Team Providers Care Mechanic Field Service Name Role Phone Mitch Gonzalez Primary Care Provider [phone] Encounter Details Date Type Department Care Team (Late st Contact Info) Description 04/18/2020 Reaction Message [facility] Pulmonary Function Lab [address] [place] [address] Mycjohnt, Generic Provider [address] [place] [address] Video Visit Patient Resources Social History Tobacco [...] on filedocumented in this encounter Care Teams Mechanic Field Service Relationship Specialty Start Date End Date Mitch Gonzalez PA [address] [place] [address] PCP - General Emergency Medicine 06/25/24 documented as of this encounter
--- OUTSIDE RECORDS SUMMARY | 2025-05-10 12:10 | XMS_ITS | Encounter Summary ---
Author Organization [facility] Address [address] [place] [address] Care Team Providers Care Director Packaging Name Role Phone Justice Rivero PA-C Primary Care Provider [phone] Erasmo Heredia MD Unavailable Marisa Patel NP Unavailable [phone] Encounter Details Date Type Department Care Team Description 09/29/2023 Pt. 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 (Primary Dx); Hyperlipidemia, unspecified hyperlipidemia type Social History Tobacco Use Types Packs/Day Years [...] as of this encounter Visit Diagnoses Diagnosis Coronary artery disease involving [place] coronary artery of conf[place] heart without angina pectoris- Primary Hyperlipidemia, unspecified hyperlipidemia type documented in this encounter Care Teams Director Packaging Relationship Specialty Start Date End Date Justice Rivero PA-C [address] [place] [address] PCP - General Internal Medicine 12/19/20 Erasmo Heredia MD [address] [place] [address] Clinical Education Coordinator Cardiovascular Disease 09/17/21 Marisa Patel NP [address] [place] [address] Cardiology 06/17/23 documented as of this encounter
--- OUTSIDE RECORDS SUMMARY | 2025-05-10 12:10 | XMS_ITS | Encounter Summary ---
Author Organization [facility] Address [address] [place] [address] Care Team Providers Care Professor Of Art Name Role Phone Julio Elliott MD Primary Care Provider Lakeisha Rickey Vaughan MD Primary Care Provider Unavail able Dominic Gardiner MD Primary Care Provider Justice Rivero PA-C Primary Care Provider Erasmo Heredia MD Unavailable Marisa Patel NP Unavailable [phone] Encounter Details Date Type Department Care Team Description 09/17/2013 Hospital Medical Records [address] [place] [address] Jt Overton Social History Tobacco Use Types [...] on filedocumented in this encounter Care Teams Professor Of Art Relationship Specialty Start Date End Date Julio Elliott MD PCP - General Internal Medicine 10/31/12 Rickey Delaney MD PCP - General Internal Medicine 08/30/14 05/18/15 Dominic Gardiner MD [address] [place] [address] PCP - General Internal Medicine 05/19/15 12/18/20 Justice Rivero PA-C [address] [place] [address] [phone] PCP - General Internal Medicine 12/19/20 Erasmo Heredia MD [address] [place] [address] [phone] Cryptologic Support Specialist Cardiovascular Disease 09/17/21 Marisa Patel NP [address] [place] [address] [phone] Cardiology 06/17/23 documented as of this encounter
--- OUTSIDE RECORDS SUMMARY | 2025-05-10 12:10 | XMS_ITS | Encounter Summary ---
Author Organization [facility] Address [address] [place] [address] Care Team Providers Care Area Operations Director Name Role Phone Justice Rivero PA-C Primary Care Provider Erasmo Heredia MD Unavailable Marisa Patel NP Unavailable [phone] Reason for Visit * Reason Onset Date Comments Pre Op Visit 12/23/2020 Encounter Details Date Type Department Care Team Description 12/23/2020 Telephone Adult Medicine [address] [phone] Justice Rivero PA-C [address] [place] [address] [phone] Pre Op Visit Social History Tobacco Use Types Packs/Day Years [...] encounter Miscellaneous Notes * Telephone Encounter - Lou Dior - 12/23/2020 9:40 AM EDT Date of surgery:January 21 What surgery is patient having (gall bladder, cataract, appendix, etc...)?: Both eyes will have a levator bleph Surgeon's name: Dr. John Vu Office phone number of surgeon: [phone] Fax # for surgeons office: [phone] (Required) Where is surgery being performed? [facility] ([facility]) Diagnosis/problem for surgery: Is an EKG required for the pre-op workup? Surgeon leaves that to office discretion, patient mac anaesthetics PCP: Justice Rivero Did you verify that the insurance below is correct? YES Patients insurance: Payor: [employer] / Plan: [employer] / Product Type: MEDICARE [id number] documented in this encounter Plan of Treatment Not on file documented as of this encounter Visit Diagnoses Not on filedocumented in this encounter Care Teams Area Operations Director Relationship Specialty Start Date End Date Justice Rivero PA-C [address] [place] [address] PCP - General Internal Medicine 12/19/20 Erasmo Heredia MD [address] [place] [address] Buildings Painter Cardiovascular Disease 09/17/21 Marisa Patel NP [address] [place] [address] Cardiology 06/17/23 documented as of this encounter
--- OUTSIDE RECORDS SUMMARY | 2025-05-10 12:10 | XMS_ITS | Encounter Summary ---
Author Organization [facility] Address [address] [place] [address] Care Team Providers Care Hcc Coders Name Role Phone Dominic Gardiner MD Primary Care Provider [phone] Justice Rivero PA-C Primary Care Provider [phone] Erasmo Heredia MD Unavailable Marisa Patel NP Unavailable [phone] Encounter Details Date Type Department Care Team Description 01/03/2017 Conditioning Room Worker Report Medical Records [address] [place] [address] [facility] Social History Tobacco Use Types Packs/Day Years [...] on filedocumented in this encounter Care Teams Hcc Coders Relationship Specialty Start Date End Date Dominic Gardiner MD [address] [place], [place] [phone] PCP - General Internal Medicine 05/19/15 12/18/20 Justice Rivero PA-C [address] [place], [place] [phone] PCP - General Internal Medicine 12/19/20 Erasmo Heredia MD [address] [place], [place] [phone] Power And Recovery Shift Engineer Cardiovascular Disease 09/17/21 Marisa Patel NP [address] [place] [address] Cardiology 06/17/23 documented as of this encounter
--- OUTSIDE RECORDS SUMMARY | 2025-05-10 12:10 | XMS_ITS | Encounter Summary ---
Author Organization [facility] Address [address] [place] [address] Care Team Providers Care Crtt Name Role Phone Julio Elliott MD Primary Care Provider Lakeisha Rickey Vaughan MD Primary Care Provider Unavail able Dominic Gardiner MD Primary Care Provider Justice Rivero PA-C Primary Care Provider Erasmo Heredia MD Unavailable Marisa Patel NP Unavailable [phone] Encounter Details Date Type Department Care Team Description 03/19/2013 Feed Blender Report Medical Records [address] [place] [address] Jt Thomas MD Social History Tobacco Use [...] on filedocumented in this encounter Care Teams Crtt Relationship Specialty Start Date End Date Julio Elliott MD PCP - General Internal Medicine 10/31/12 Rickey Delaney MD PCP - General Internal Medicine 08/30/14 05/18/15 Dominic Gardiner MD [address] [place] [address] PCP - General Internal Medicine 05/19/15 12/18/20 Justice Rivero PA-C [address] [place] [address] [phone] PCP - General Internal Medicine 12/19/20 Erasmo Heredia MD [address] [place] [address] [phone] Awning Hanger Cardiovascular Disease 09/17/21 Marisa Patel NP [address] [place] [address] [phone] Cardiology 06/17/23 documented as of this encounter
--- OUTSIDE RECORDS SUMMARY | 2025-05-10 12:10 | XMS_ITS | Encounter Summary ---
Author Organization [facility] Address [address] [place] [address] Care Team Providers Care Lamp Inspector Name Role Phone Justice Rivero PA-C Primary Care Provider + [phone] Erasmo Heredia MD Unavailable Marisa Patel NP Unavailable [phone] Encounter Details Date Type Department Care Team Description 01/25/2024 Aircraft Electrician Report Medical Records [address] [place] [address] Delfino Osorio MD Social History Tobacco Use [...] on filedocumented in this encounter Care Teams Lamp Inspector Relationship Specialty Start Date End Date Justice Rivero PA-C [address] [place], [place] [phone] PCP - General Internal Medicine 12/19/20 Erasmo Heredia MD [address] [place] [address] Strand Forming Machine Operator Cardiovascular Disease 09/17/21 Marisa Patel NP [address] [place] [address] Cardiology 06/17/23 documented as of this encounter
--- OUTSIDE RECORDS SUMMARY | 2025-05-10 12:10 | XMS_ITS | Encounter Summary ---
Author Organization [facility] Address [address] [place] [address] Care Team Providers Care Ruby Rails Developer Name Role Phone Justice Rivero PA-C Primary Care Provider [phone] Erasmo Heredia MD Unavailable Marisa Patel NP Unavailable [phone] Encounter Details Date Type Department Care Team Description 11/04/2023 Admissions Clinician Report Medical Records [address] [place] [address] Marcton Licha Social History Tobacco Use Types Packs/Day Years [...] on filedocumented in this encounter Care Teams Ruby Rails Developer Relationship Specialty Start Date End Date Justice Rivero PA-C [address] [place], [place] [phone] PCP - General Internal Medicine 12/19/20 Erasmo Heredia MD [address] [place] [address] Engineering Analyst Cardiovascular Disease 09/17/21 Marisa Patel NP [address] [place] [address] Cardiology 06/17/23 documented as of this encounter
--- OUTSIDE RECORDS SUMMARY | 2025-05-10 12:10 | XMS_ITS | Encounter Summary ---
Author Organization [facility] Address [address] [place] [address] Care Team Providers Care Roof Truss Machine Tender Name Role Phone Justice Rivero PA-C Primary Care Provider [phone] Erasmo Heredia MD Unavailable Marisa Patel NP Unavailable [phone] Encounter Details Date Type Department Care Team Description 02/13/2024 Research & Insights Executive Report Medical Records [address] [place] [address] Marcton Licha Social History Tobacco Use Types [...] on filedocumented in this encounter Care Teams Roof Truss Machine Tender Relationship Specialty Start Date End Date Justice Rivero PA-C [address] [place], [place] [phone] PCP - General Internal Medicine 12/19/20 Erasmo Heredia MD [address] [place] [address] Heat Treat Supervisor Cardiovascular Disease 09/17/21 Marisa Patel NP [address] [place] [address] Cardiology 06/17/23 documented as of this encounter
--- OUTSIDE RECORDS SUMMARY | 2025-05-10 12:10 | XMS_ITS | Encounter Summary ---
Author Organization [facility] Address [address] [place] [address] Care Team Providers Care Credit Risk Specialist Name Role Phone Julio Rodriges MD Primary Care Provider Lakeisha Rickey Vaughan MD Primary Care Provider Unavail able Dominic Gardiner MD Primary Care Provider Justice Rivero PA-C Primary Care Provider Erasmo Heredia MD Unavailable Marisa Patel NP Unavailable [phone] Reason for Visit * Reason Onset Date Comments asthma 09/14/2013 Encounter Details Date Type Department Care Team Description 09/14/2013 Telephone Adult Medicine [address] [address] Julio Rodriges MD asthma Social History Tobacco Use Types Packs/Day Years [...] encounter Miscellaneous Notes * Telephone Encounter - Deana Kruger R.N. - 09/14/2013 10:39 AM EST Call to pt, left My name with person answering phone, pt did not rock picker when call was transferred * Telephone Encounter - Julio Rodriges MD - 09/14/2013 10:35 AM EST Prednisone reordered, but id no improvent by Tuesday will need to be seen * Telephone Encounter - Nora Dorsey L.P.NMadi - 09/14/2013 9:49 AM EST Called pt she reports has not had any improvement at all with the taper dose.she is still wheezing a lot. Wants more prednisone.she saw her steel wheel engraver the day after she saw her pcp. And he prefers dr rodriges handle this issue if appropriate. Please advise Pt declines to come in for another appt. * Telephone Encounter - Jazmine Morrissey - 09/14/2013 8:49 AM EST Symptoms patient is presenting: patient was seen on Tuesday by dr rodriges and was prescribed prednisone. Patient would like to know if another prescription can be sent and be increased. How long has patient had these symptoms?: PCP: Julio Rodriges Payor: [employer] [employer] [facility]/HMO FFS Plan: HMO $15 [place] [id number] Product Type: HMO [id number] documented in this encounter Plan of Treatment Not on file documented as of this encounter Visit Diagnoses Not on filedocumented in this encounter Care Teams Credit Risk Specialist Relationship Specialty Start Date End Date Julio Rodriges MD PCP - General Internal Medicine 10/31/12 Rickey Delaney MD PCP - General Internal Medicine 08/30/14 05/18/15 Dominic Gardiner MD [address] [place] [address] PCP - General Internal Medicine 05/19/15 12/18/20 Justice Rivero PA-C [address] [place] [address] [phone] PCP - General Internal Medicine 12/19/20 Erasmo Heredia MD [address] [place] [address] [phone] Vice President Sales Cardiovascular Disease 09/17/21 Marisa Patel NP [address] [place], [place] [phone] Cardiology 06/17/23 documented as of this encounter
--- OUTSIDE RECORDS SUMMARY | 2025-05-10 12:11 | XMS_ITS | Encounter Summary ---
Author Organization [facility] Address [address] [place] [address] Care Team Providers Care Hand Singer Name Role Phone Justice Rivero PA-C Primary Care Provider + [phone] Erasmo Heredia MD Unavailable Marisa Patel NP Unavailable [phone] Encounter Details Date Type Department Care Team Description 01/27/2023 Streetcar Starter Report Medical Records [address] [place] [address] Delfino Osorio MD Social History Tobacco Use [...] on filedocumented in this encounter Care Teams Hand Singer Relationship Specialty Start Date End Date Justice Rivero PA-C [address] [place], [place] [phone] PCP - General Internal Medicine 12/19/20 Erasmo Heredia MD [address] [place] [address] Process Control Tech Cardiovascular Disease 09/17/21 Marisa Patel NP [address] [place] [address] Cardiology 06/17/23 documented as of this encounter
--- OUTSIDE RECORDS SUMMARY | 2025-05-10 12:11 | XMS_ITS | Encounter Summary ---
Author Organization [facility] Address [address] [place] [address] Care Team Providers Care Optometry Assistant Name Role Phone Saritha Houston MD Primary Care Provider [phone] Julio Elliott MD Primary Care Provider Lakeisha Rickey Vaughan MD Primary Care Provider Unavail able Domiinc Gardiner MD Primary Care Provider [phone] Justice Rivero PA-C Primary Care Provider [phone] Erasmo Heredia MD Unavailable Marisa Patel NP Unavailable [phone] Encounter Details Date Type Department Care Team Description 02/07/2012 Technical Business Systems Analyst Report Medical Records [address] [place] [address] Jt Overton Social History Tobacco Use Types [...] on filedocumented in this encounter Care Teams Optometry Assistant Relationship Specialty Start Date End Date Saritha Houston MD [address] [place] [address] PCP - General Internal Medicine 08/04/11 10/30/12 Julio Elliott MD [address] [place] [address] PCP - General Internal Medicine 10/31/12 08/29/14 Rickey Delaney MD [address] [place], [place] [phone] PCP - General Internal Medicine 08/30/14 05/18/15 Dominic Gardiner MD [address] [place] [address] PCP - General Internal Medicine 05/19/15 12/18/20 Justice Rivero PA-C [address] [place] [address] PCP - General Internal Medicine 12/19/20 Erasmo Heredia MD [address] [place] [address] Scrap Stripper Hand Cardiovascular Disease 09/17/21 Marisa Patel NP [address] [place] [address] Cardiology 06/17/23 documented as of this encounter
--- OUTSIDE RECORDS SUMMARY | 2025-05-10 12:11 | XMS_ITS | Encounter Summary ---
Author Organization [facility] Address [address] [place] [address] Care Team Providers Care Electrical Cad Designer Name Role Phone Dominic Gardiner MD Primary Care Provider [phone] Justice Rivero PA-C Primary Care Provider [phone] Erasmo Heredia MD Unavailable Marisa Patel NP Unavailable [phone] Encounter Details Date Type Department Care Team Description 11/13/2015 Business Doc Medical Records [address] [place] [address] Abstract, Provider Social History Tobacco Use Types [...] on filedocumented in this encounter Care Teams Electrical Cad Designer Relationship Specialty Start Date End Date Dominic Gardiner MD [address] [place] [address] [phone] PCP - General Internal Medicine 05/19/15 12/18/20 Justice Rivero PA-C [address] [place] [address] PCP - General Internal Medicine 12/19/20 Erasmo Heredia MD [address] [place] [address] Mental Health Program Specialist Cardiovascular Disease 09/17/21 Marisa Patel NP [address] [place] [address] Cardiology 06/17/23 documented as of this encounter
--- OUTSIDE RECORDS SUMMARY | 2025-05-10 12:11 | XMS_ITS | Encounter Summary ---
Author Organization [facility] Address [address] [place] [address] Care Team Providers Care Reinstatement Clerk Name Role Phone Dominic Gardiner MD Primary Care Provider [phone] Justice Rivero PA-C Primary Care Provider [phone] Erasmo Heredia MD Unavailable Marisa Patel NP Unavailable [phone] Encounter Details Date Type Department Care Team Description 08/22/2015 Electrical Equipment Technician Report Medical Records [address] [place] [address] Delfino Osorio MD Social History Tobacco Use [...] on filedocumented in this encounter Care Teams Reinstatement Clerk Relationship Specialty Start Date End Date Dominic Gardiner MD [address] [place] [address] [phone] PCP - General Internal Medicine 05/19/15 12/18/20 Justice Rivero PA-C [address] [place], [place] [phone] PCP - General Internal Medicine 12/19/20 Erasmo Heredia MD [address] [place], [place] [phone] Import Export Manager Cardiovascular Disease 09/17/21 Marisa Patel NP [address] [place] [address] Cardiology 06/17/23 documented as of this encounter
--- OUTSIDE RECORDS SUMMARY | 2025-05-10 12:11 | XMS_ITS | Encounter Summary ---
Author Organization [facility] Address [address] [place] [address] Care Team Providers Care Cut Off Machine Operator Name Role Phone Dominic Gardiner MD Primary Care Provider [phone] Justice Rivero PA-C Primary Care Provider [phone] Erasmo Heredia MD Unavailable Marisa Patel NP Unavailable [phone] Encounter Details Date Type Department Care Team Description 01/30/2020 Clinical Laboratory Scientist Report Medical Records [address] [place] [address] Social History Tobacco Use Types Packs/Day Years [...] on filedocumented in this encounter Care Teams Cut Off Machine Operator Relationship Specialty Start Date End Date Dominic Gardiner MD [address] [place] [address] [phone] PCP - General Internal Medicine 05/19/15 12/18/20 Justice Rivero PA-C [address] [place] [address] PCP - General Internal Medicine 12/19/20 Erasmo Heredia MD [address] [place] [address] Agricultural Chemicals Inspector Cardiovascular Disease 09/17/21 Marisa Patel NP [address] [place] [address] Cardiology 06/17/23 documented as of this encounter
--- OUTSIDE RECORDS SUMMARY | 2025-05-10 12:11 | XMS_ITS | Encounter Summary ---
Author Organization [facility] Address [address] [place] [address] Care Team Providers Care Eligibility And Occupancy Interviewer Name Role Phone Justice Rivero PA-C Primary Care Provider [phone] Erasmo Heredia MD Unavailable Marisa Patel NP Unavailable [phone] Encounter Details Date Type Department Care Team Description 08/08/2023 Orders Only Medical Records [address] [place] [address] Pretty Gruber, RADHA Social History Tobacco Use Types Packs/Day Years [...] Exposure Response Date Recorded In the last 10 days, have yo u been in contact with someone who was confirmed or suspected to have Coronavirus/COVID-19? No / Unsure 07/12/2023 11:13 AM EST documented as of this encounter Plan of Treatment Not on file documented as of this encounter Procedures Procedure Name Priority Date/Time Associated Diagnosis Comments OUTSIDE EYE EXAM Routine 08/24/2022 documented in this encounter Results * OUTSIDE EYE EXAM (08/24/2022) Pretty Gruber OD PROCEDURES documented in this encounter Visit Diagnoses Not on filedocumented in this encounter Care Teams Eligibility And Occupancy Interviewer Relationship Specialty Start Date End Date Justice Rivero PA-C [address] [place] [address] PCP - General Internal Medicine 12/19/20 Erasmo Heredia MD [address] [place] [address] Die Cut Operator Cardiovascular Disease 09/17/21 Marisa Patel NP [address] [place] [address] Cardiology 06/17/23 documented as of this encounter
--- OUTSIDE RECORDS SUMMARY | 2025-05-10 12:11 | XMS_ITS | Encounter Summary ---
Author Organization [facility] Address [address] [facility] [address] [place] [address] Phone Care Team Providers Care Chef French Name Role Phone Justice Rivero Primary Care Provid er Mitch Gonzalez PA-C Primary Care Provider [phone] Encounter Details Date Type Department Care Team (Late st Contact Info) Description 07/05/2024 Procedure Pass [facility] - [address] [place] [address] Social History Tobacco Use Types Packs/Day Years Used Date Smoking Tobacco: Former Cigarettes 2 14 0 [birth year]05/1969 - 1983 Smokeless Tobacco: Never Comments:Started smoking cig arettes at 19 y/o, was a heavy smokers smoked 2 PPD quit 1983 Alcohol Use Standard Drinks/Week Comments Yes 0 (1 standard drink = 0.6 oz pure alcohol) Almost never drink - you would call me a social drinker Child or Family Care Answer Date Record ed Do you have problems with on e of the following making it difficult for you to work, study, or receive health care? No 06/28/2024 Education Answer Date Recorded Are you interested in more education? Not on tray e 03/29/2024 Are you concerned about learning? Not on file 03/29/2024 No 03/29/2024 No 03/29/2024 Food Answer Date Recorded Within the past 6 months we worried whether our food would run out before we got money to buy more. Never True 06/28/2024 Within the past 6 months the food we bought just didn't last and we didn't have enough money to get more. Never True Residential Stability Answer Date Recor ded What is your housing situation today? I have tawana sing 06/28/2024 How many times have you move d in the past 12 months? Zero (I did not move) 06/28/2024 Paying for Meds Answer Date Recorded Do you have trouble paying for medicines? No 06/28/2024 Paying Utility Bills Answer Date Record ed Do you have trouble paying your heating or elect ricity bill? No 06/28/2024 Transportation Answer Date Recorded Has the lack of transportati on kept you from medical appointments or from getting medications? No 06/28/2024 Digital Access Answer Date Recorded No 06/28/2024 Yes 06/28/2024 Do you have reliable internet access at home? Ye s 06/28/2024 Do you have a device (e.g., phone, tablet, computer) with a working camera? Yes 06/28/2024 Intimate Partner Violence Answer Date R ecorded Denied Basic Needs Not on file 06/28/2024 In the past 12 months have y ou been in a relationship with a person who hurts, threatens, or tries to control you? No 06/28/2024 Worried food would run out Not on file 06/28 In the past 12 months have y ou been in a relationship with a person who hurts, threatens, or tries to control you? No 06/28/2024 Comments No Sex and Gender Information Value Date Recorded Sex Assigned at Female 04/24/2024 1:57 PM EDT Legal Sex Female 10:54 AM EDT Gender Identity Female 04/24/2024 1:57 PM EDT Sexual Orientation Straight 04/24/2024 1: 57 PM EDT documented as of this encounter Plan of Treatment Upcoming Encounters Date Type Department Care Team (Late st Contact Info) Description 06/11/2025 11:20 AM EDT Office Visit [facility] Medicine [address] [place] [address] Mitch Gonzalez PA-C [address] [place] [address] [email or web address] 10/29/2025 11:20 AM EST Office Visit [facility] Endocrinology [place] [address] [place] [phone] Anastasia Plummer MD [address] [place] [address] [email or web address] documented as of this encounter Visit Diagnoses Not on filedocumented in this encounter Additional Health Concerns Assessment Noted Time PHQ-2 Depression Total Score: 0 06/28/20 6:21 PM EDT documented as of this encounter Care Teams Chef French Relationship Specialty Start Date End Date Justice Rivero PA [address] [place] [address] PCP - General Physician Branch Associate 03/29/24 07/12/24 Mitch Gonzalez PA-C [address] [place] [address] PCP - General Physician Branch Associate 07/13/24 documented as of this encounter Additional Source Comments The information contained in this document represents components of the legal health record. It is not the complete legal health record.[facility]
--- OUTSIDE RECORDS SUMMARY | 2025-05-10 12:11 | XMS_ITS | Encounter Summary ---
Author Organization [facility] Address [address] [place] [address] Care Team Providers Care Head Of Physics Name Role Phone Dominic Gardiner MD Primary Care Provider [phone] Justice Rivero PA-C Primary Care Provider [phone] Erasmo Heredia MD Unavailable Marisa Patel NP Unavailable [phone] Encounter Details Date Type Department Care Team Description 06/01/2019 Orders Only Medical Records [address] [place] [address] Nisa Fishman MD Social History Tobacco Use Types Packs/Day [...] Name Priority Date/Time Associated Diagnosis Comments OUTSIDE ECHO Routine 05/30/2019 documented in this encounter Results * OUTSIDE ECHO (05/30/2019) Nisa Fishman MD CARDIOLOGY documented in this encounter Visit Diagnoses Not on filedocumented in this encounter Care Teams Head Of Physics Relationship Specialty Start Date End Date Dominic Gardiner MD [address] [place] [address] [phone] PCP - General Internal Medicine 05/19/15 12/18/20 Justice Rivero PA-C [address] [place] [address] [id number] PCP - General Internal Medicine 12/19/20 Erasmo Heredia MD [address] [place] [address] [phone] Advertising Editor Cardiovascular Disease 09/17/21 Marisa Patel NP [address] [place] [address] [phone] Cardiology 06/17/23 documented as of this encounter
--- OUTSIDE RECORDS SUMMARY | 2025-05-10 12:11 | XMS_ITS | Encounter Summary ---
Author Organization [facility] Address [address] [place] [address] Care Team Providers Care Ferryboat Operator Name Role Phone Rickey Delaney MD Primary Care Provider Unavail able Dominic Gardiner MD Primary Care Provider [phone] Justice Rivero PA-C Primary Care Provider [phone] Erasmo Heredia MD Unavailable Marisa Patel NP Unavailable [phone] Encounter Details Date Type Department Care Team Description 04/26/2015 Can Maker Report Medical Records [address] [place] [address] Jv Cleaning MD Social History Tobacco Use [...] on filedocumented in this encounter Care Teams Ferryboat Operator Relationship Specialty Start Date End Date Rickey Delaney MD PCP - General Internal Medicine 12/26/14 9/13/15 Dominic Gardiner MD [address] [place] [address] PCP - General Internal Medicine 05/19/15 12/18/20 Justice Rivero PA-C [address] [place] [address] PCP - General Internal Medicine 12/19/20 Erasmo Heredia MD [address] [place] [address] [phone] Industrial Maintenance Instructor Cardiovascular Disease 09/17/21 Marisa Patel NP [address] [place], [place] [phone] Cardiology 06/17/23 documented as of this encounter
--- OUTSIDE RECORDS SUMMARY | 2025-05-10 12:11 | XMS_ITS | Encounter Summary ---
Author Organization [facility] Address [address] [place] [address] Care Team Providers Care Anesthesiologist Attending Name Role Phone Dominic Gardiner MD Primary Care Provider [phone] Justice Rivero PA-C Primary Care Provider [phone] Erasmo Heredia MD Unavailable Marisa Patel NP Unavailable [phone] Encounter Details Date Type Department Care Team Description 09/01/2015 Retail Sales Associate Bilingual Report Medical Records [address] [place] [address] Delfino Osorio MD Social History Tobacco Use [...] on filedocumented in this encounter Care Teams Anesthesiologist Attending Relationship Specialty Start Date End Date Dominic Gardiner MD [address] [place] [address] [phone] PCP - General Internal Medicine 05/19/15 12/18/20 Justice Rivero PA-C [address] [place], [place] [phone] PCP - General Internal Medicine 12/19/20 Erasmo Heredia MD [address] [place], [place] [phone] [employer]illery Cardiovascular Disease 09/17/21 Marisa Patel NP [address] [place] [address] Cardiology 06/17/23 documented as of this encounter
--- OUTSIDE RECORDS SUMMARY | 2025-05-10 12:11 | XMS_ITS | Clinical Summary ---
Author Organization [facility] Address [address] [place] [address] Care Team Providers Care Sheet Metal Duct Installer Helper Name Role Phone Mitch Gonzalez Primary Care Provider [phone] Allergies Active Allergy Reactions Criticality Noted Date Comments Immun Glob G(Igg)-Gly-Iga Ov50 Hives,Angioedema High 12/25/2020 Discontinued Gamunex-C. Trial of Gammagard here in the infusion suite went well. After her reaction, the particular lot of Gamunex C that she had received was recalled by the cad design engineer secondary to reports of allergic reactions in [...] IV every 3 weeks. Drug provided by [facility]. Nursing through infusion plus. 1 Active amphetamine-de xtroamphetamin e XR (ADDERALL XR) [...] ELLIPTA) 62.5 mcg/actuation blister with device Active ipratropium (ATROVENT) 0.03% nasal spray Administer [...] mcg total) by mouth daily. 5 Active EPINEPHrine (EPIPEN) 0.3 mg/0.3 mL injection syringe Inject 1 Syringe (0.3 mg total) into the outer thigh muscle as directed once for 1 dose. 0.3 mL 5 Active umeclidinium-v ilanteroL (Anoro Ellipta) 62.5-25 mcg/actuation blister with device Inhale 1 puff by mouth daily. Active ciclesonide (Alvesco) 160 mcg/actuation inhaler Inhale 1 puff by mouth daily. Rinse mouth with water after use to reduce aftertaste and incidence of candidiasis. Do not swallow. 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 Hypothyroidism 03/23/2009 Hypogammaglobulinemia 03/23/2009 Osteoarthritis 03/23/2009 Obesity 03/23/2009 Narcolepsy 03/23/2009 Fibromyalgia 03/23/2009 Esophageal reflux 03/23/2009 Asthma 03/23/2009 Resolved Problems Problem Noted Date Diagnosed Date Resolved Date COVID-19 virus infection 03/24/2022 Adverse effect of immunoglobulin 11/20/2020 09/22/2023 Encounters Date Type Department Care Team Description 02/21/2025 Orders Only [facility] [address] [place] [address] Buccaro: Franci Brantley NP Nonfamilial hypogammaglobulinemia (HCC) (Primary Dx) 02/20/2025 myChart Message [facility] [address] [address] Buccaro: Henry Kaur, Priyank Young MD Requesting another order from Last 3 Months Immunizations Immunization Administration Dates Next Due Covid-19 Monovalent Vaccine, Moderna, mRNA, PF 12/13/2020,11/15/2020 Covid-19, Moderna, mRNA, Biv alent Booster, Pf, 10 Mcg/0.2 mL dose (for age 6 mo-5y) 07/12/2022 Covid-19, Moderna, mRNA, Vac cine, PF, 50 mcg/0.5 mL (for age 12 y and up) 09/01/2023 Immune Globulin, Intravenous 12/22/2020, 12/22/2020,12/22/2020,12/22,12/22/2020,12/22/2020,12/01/2020 ,12/01/2020,12/01/2020,12/01/2020,11/04,12/01/2020,12/01/2020 Influenza, High Dose Seasona l, Preservative Free (FLUZONE HIGH-DOSE) 06/25/2019,06/28/2017 Influenza, High Dose Seasona l, Quadrivalent [...] Pressure 156/59 09/22/2023 10:00 AM EST 147/74- FISH SALTER Pulse 83 09/22/2023 10:00 AM EST Temperature 36.6 C (97.9 F) 02/19/2022 9:46 AM EDT Respiratory Rate 20 09/22/2023 10:0 [...] 2025 07/26/2024, 09/01/2023, 09/01/2023, Additional history exists Influenza Vaccine (#1) 2025 , 06/29/2023, 06/20/2023, Additional history exists Basic Metabolic Panel 07/19/2025 07/19/2024 , 07/05/2024, 09/26/2023, Additional history exists DTaP,Tdap,and Td Vaccines (4 - Td or Tdap) 11/19/2032 11/19/2022, 10/31/2012, 07/17/2007 Mammogram Discontinued 10/27/2020, 10/27/2020 RSV Vaccine (60+ years old and patients) Completed 10/06/2023 Hepatitis B Vaccines Aged Out No long er eligible based on patient's age to complete this topic Procedures * Due to [place] state law, this organization might not be sharing negative HIV tests. Procedure Name Priority Date/Time Associated Diagnosis Comments LAB - SCANNED 02/08/2025 BASIC METABOLIC PANEL Routine 11/30/2008 12:01 AM EDT from Last 3 Months or Most Recently Relevant to Health Maintenance Results * Due to [place] state law, this organization might not be sharing negative HIV tests. * LAB - SCANNED (02/08/2025) us Onbase Scan [facility] LAB HISTORICAL RESULTS Final Result * (ABNORMAL) Basic Metabolic Panel (11/30/2008 12:01 AM EDT) Sodium Blood 140 136 - 145 mmol/L [facility] Potassium Blood 4.0 3.5 - 5.3 mmol/L [facility] Chloride Blood 99 97 - 110 mmol/L [facility] Carbon Dioxide 31 24 - 32 mmol/L [facility] Gap 10 5 - 15 [facility] Glucose 127(H) 70 - 99 mg/dL [facility] BUN 15 7 - 23 mg/dL [facility] Creatinine 0.89 0.50 - 1.20 mg/dL [facility] eGFR Non- >60 >60 [facility] Comment: Units = mL/min/1.73 m2 Glomerular Filtration Rate (GFR) is estimated based on the IDMS-Traceable MDRD equation(NKDEP).For Americans multiply results by 1.210. Patients with CKD exhibit values less than 60mL/min/1.73 m2, while results less than 15mL/min/1.73 m2 are consistent with kidney failure. This MDRD equation is not recommended by NKDEP for drug-dosing purposes Calcium Blood 9.0 8.7 - 10.7 mg/dL [facility] 11/30/2008 12:0 1 AM EDT 11/30/2008 7:15 AM EDT us Morena Sousa LAB BLOOD ORDERABLES Fi nal Result [facility] [address] [place] [address], from Last 3 Months or Most Recently Relevant to Health Maintenance Insurance [address] [place] [address] MEDICARE [facility] Advance Directives Documents on File Type Date Recorded Patient Associate Store Director Expl [facility] Health Care Proxy 09/22/2022 10:57 PM -2 Advance Directive 12/04/2008 12:00 AM [facility] dical Dec Making (Adv.Dir) Care Teams Sheet Metal Duct Installer Helper Relationship Specialty Start Date End Date Mitch Gonzalez PA [address] [place] [address] PCP - General Emergency Medicine 06/25/24
--- OUTSIDE RECORDS SUMMARY | 2025-05-10 12:11 | XMS_ITS | Encounter Summary ---
Author Organization [facility] Address [address] [place] [address] Care Team Providers Care Biomechanical Engineer Name Role Phone Dominic Gardiner MD Primary Care Provider [phone] Justice Rivero PA-C Primary Care Provider [phone] Erasmo Heredia MD Unavailable Marisa Patel NP Unavailable [phone] Encounter Details Date Type Department Care Team Description 09/03/2019 Biomedical Engineering Aide Report Medical Records [address] [place] [address] Evangelina Zapata NP Social History Tobacco Use Types Packs/Day Years [...] on filedocumented in this encounter Care Teams Biomechanical Engineer Relationship Specialty Start Date End Date Dominic Gardiner MD [address] [place] [address] PCP - General Internal Medicine 05/19/15 12/18/20 Justice Rivero PA-C [address] [place], [place] [phone] PCP - General Internal Medicine 12/19/20 Erasmo Heredia MD [address] [place] [address] Sports Administrator Cardiovascular Disease 09/17/21 Marisa Patel NP [address] [place], [place] [phone] Cardiology 06/17/23 documented as of this encounter
--- OUTSIDE RECORDS SUMMARY | 2025-05-10 12:11 | XMS_ITS | Encounter Summary ---
Author Organization [facility] Address [address] [place] [address] Care Team Providers Care Event Staff Member Name Role Phone Mitch Gonzalez Primary Care Provider [phone] Encounter Details Date Type Department Care Team (Late st Contact Info) Description 09/21/2023 [employer] Message Intial Department [address] [place] [address] Mychart, Generic Provider [address] [place] [address] Questionnaire Submission Social History Tobacco Use Types Packs/Day Years Used Date Smoking Tobacco: Former Cigarettes 1 0 - 1987 Smokeless Tobacco: Never Comments:: Comments [...] on filedocumented in this encounter Care Teams Event Staff Member Relationship Specialty Start Date End Date Mitch Gonzalez PA [address] [place] [address] PCP - General Emergency Medicine 06/25/24 documented as of this encounter
--- OUTSIDE RECORDS SUMMARY | 2025-05-10 12:11 | XMS_ITS | Encounter Summary ---
Author Organization [facility] Address [address] [place] [address] Care Team Providers Care Boat Painter Name Role Phone Saritha Houston MD Primary Care Provider [phone] Julio Elliott MD Primary Care Provider Lakeisha Rickey Vaughan MD Primary Care Provider Unavail able Dominic Gardiner MD Primary Care Provider [phone] Justice Rivero PA-C Primary Care Provider [phone] Erasmo Heredia MD Unavailable Marisa Patel NP Unavailable [phone] Encounter Details Date Type Department Care Team Description 01/04/2012 Director Of [facility] Report Medical Records [address] [place] [address] Delfino Osorio MD Social History Tobacco Use [...] on filedocumented in this encounter Care Teams Boat Painter Relationship Specialty Start Date End Date Saritha Houston MD [address] [place] [address] PCP - General Internal Medicine 08/04/11 10/30/12 Julio Elliott MD [address] [place] [address] PCP - General Internal Medicine 10/31/12 08/29/14 Rickey Delaney MD [address] [place], [place] [phone] PCP - General Internal Medicine 08/30/14 05/18/15 Dominic Gardiner MD [address] [place] [address] PCP - General Internal Medicine 05/19/15 12/18/20 Justice Rivero PA-C [address] [place] [address] PCP - General Internal Medicine 12/19/20 Erasmo Heredia MD [address] [place] [address] Electrical And Radio Aircraft Mechanic Cardiovascular Disease 09/17/21 Marisa Patel NP [address] [place] [address] Cardiology 06/17/23 documented as of this encounter
--- OUTSIDE RECORDS SUMMARY | 2025-05-10 12:11 | XMS_ITS | Encounter Summary ---
Author Organization [facility] Address [address] [facility] [address] [place] [address] Phone Care Team Providers Care Fish Hatchery Manager Name Role Phone Justice Rivero Primary Care Provid er Mitch Gonzalez PA-C Primary Care Provider [phone] Encounter Details Date Type Department Care Team (Late st Contact Info) Description 07/05/2024 Procedure Pass [facility] Scan - [address] [address] Social History Tobacco Use Types Packs/Day Years Used Date Smoking Tobacco: Former Cigarettes 2 14 1 970 - 1983 Smokeless Tobacco: Never Comments:Started smoking cig arettes at 19 y/o, was a heavy smokers smoked 2 PPD quit 1983 Alcohol Use Standard Drinks/Week Comments Yes 0 (1 standard drink = 0.6 oz pur e alcohol) 1-2 drinks, monthly or less Child or Family Care Answer Date Record [...] tries to control you? No 06/28/2024 Comments Unknown Sex and Gender Information Value [...] Description 06/11/2025 11:20 AM EDT Office Visit [facility] Internal Medicine [address] [place] [address] Mitch Gonzalez PA-C [address] [place] [address] 10/29/2025 11:20 AM EST Office Visit [facility] Endocrinology [place] [address] [place] [phone] Anastasia Plummer MD [address] [place] [address] documented as of this encounter Visit Diagnoses Not on filedocumented in this encounter Additional Health Concerns Assessment Noted Time PHQ-2 Depression Total Score: 0 06/28/20 6:21 PM EDT documented as of this encounter Care Teams Fish Hatchery Manager Relationship Specialty Start Date End Date Justice Rivero PA [address] [place] [address] PCP - General Physician Race Starter 03/29/24 07/12/24 Mitch Gonzalez PA-C [address] [place] [address] [email or web address] PCP - General Physician Race Starter 07/13/24 documented as of this encounter Additional Source Comments The information contained in this document represents components of the legal health record. It is not the complete legal health record.[facility]
--- OUTSIDE RECORDS SUMMARY | 2025-05-10 12:11 | XMS_ITS | Clinical Summary ---
Author Organization [facility] Address [address] [place] [address] Phone Care Team Providers Care Electrical Automation Engineer Name Role Phone Mitch Gonzalez PA-C Primary Care Provider [phone] Allergies Active Allergy Reactions Criticality Noted Date Comments Adhesive Tape-Silicones 12/18/2014 Other reaction(s): Rash/Dermatitis Immun Glob G(Igg)-Gly-Iga Ov50 Angioedema,Hives High 12/25/2020 Discontinued Gamunex-C. Trial of Gammagard here in the infusion suite went well. After her reaction, the particular lot of Gamunex C that she had received was recalled by the manufacturers representative secondary to reports of allergic reactions in other patients also. Other reaction(s): Angioedema Discontinued Gamunex-C. Trial of Gammagard here in the infusion suite went well. After her reaction, the particular lot of Gamunex C that she had received was recalled by the manufacturers representative secondary to reports of allergic reactions in other patients also. Medications VENTOLIN HFA 90 mcg/actuation inhaler INHALE 2 PUFFS 4 TIMES A DAY NEEDED SHORTNESS OF BREATH/WHEEZI NG Active amoxicillin (AMOXIL) 500 MG capsule Take 2,000 mg by mouth once as needed (prior to dental visit). 02/14/20 24 Active aspirin 81 MG EC tablet Take 1 tablet by mouth daily. Active FREESTYLE LITE Strp strips daily. 01/25/20 24 Active cholecalciferol, vitamin D3, 25 mcg (1,000 unit) capsule Take 1 tablet by mouth daily. Active ADDERALL XR 30 mg 24 hr capsule Take 30 mg by mouth every morning. 03/26/20 24 Active EPINEPHrine 0.3 mg/0.3 mL auto-injector Inject 0.3 mg into the muscle as needed for anaphylaxis. 01/27/20 24 Active FREESTYLE 28 gauge lancets daily. 01/25/20 24 Active montelukast (SINGULAIR) 10 mg tablet Take 10 mg by mouth daily. Active multivitamin per tablet Take 1 tablet by mouth daily. Active olmesartan-hydroCH LOROthiazide (BENICAR HCT) 40-25 mg per tablet Take 1 tablet by mouth daily. 07/04/20 24 025 Active ipratropium/albute rol sulfate (ID-IPRATROPIUM BROMIDE/ALBUTEROL SULFATE) 0.5-2.5 mg/3 mL nebulizer solution Active modafiniL (PROVIGIL) 200 MG tablet Take 200 mg by mouth 2 (two) times a day as needed. 05/04/20 Active acetaminophen (TYLENOL EXTRA STRENGTH) 500 MG tablet Take 500 mg by mouth daily as needed. Active immune globulin, human, (GAMUNEX-C) 10 g/100 mL (10%) Soln Inject 4 Bottles as directed. With 5 mg Active ipratropium (ATROVENT) 21 mcg (0.03 %) nasal spray 2 sprays by Nasal route every 8 (eight) hours as needed. 09/25/19 25 Active sodium chloride (SALINE NASAL NASL) by Nasal route 2 (two) times a day. Active simvastatin (ZOCOR) 40 MG tablet Take 40 mg by mouth daily. 01/26/20 25 Active ANORO ELLIPTA 62.5-25 mcg/actuation diskus inhaler Inhale 1 puff into the lungs daily. 01/30/20 25 Active immune globulin, human, (GAMMAGARD S/D) 5 gram IV injection Inject 45 g into the vein as directed. [id number] 10/08/19 25 026 Active ciclesonide (ALVESCO) 160 mcg/actuation inhaler Inhale 1 puff into the lungs daily. 01/31/20 25 Active diclofenac sodium (VOLTAREN) 1 % Gel Apply 4 g topically 4 (four) times a day as needed for other (free text field) (joint pain). 100 g 2 03/11/20 25 Active omeprazole (PRILOSEC) 40 MG capsuleIndications :GERD (gastroesophageal reflux disease) Take 1 capsule (40 mg total) by mouth daily. 90 capsule 3 03/11/20 25 Active levothyroxine (SYNTHROID, LEVOTHROID) 137 MCG tabletIndications: Acquired hypothyroidism Take 1 tablet (137 mcg total) by mouth every morning. 90 tablet 1 03/11/20 25 Active inhaler spacing device (AEROCHAMBER,BREAT HERITE) Spcr Active Medication-Free Text Take 4 mg by mouth daily. NUTRAFOL DIETARY SUPPLEME 025 Discontin ued(No longer taking) Active Problems Problem Noted Date Diagnosed Date Acute pain of both knees 03/11/2025 Assessment & Plan (03/11/2025 1:03 PM EDT): Patient with a history of bilateral knee replacements done by Dr. Bush from [facility]. Patient is noted to have tenderness to palpation over the knees bilaterally with noted cracking. Will obtain bilateral knee x-rays and continue diclofenac as needed. Cervicalgia 03/11/2025 Assessment & Plan (03/11/2025 1:03 PM EDT): Patient has been experiencing neck pain with radiation into the left shoulder. Patient denies any weakness of her upper extremities. On physical examination she is noted to have noted spasms in the trapezius. We will obtain a cervical spine x- ray for further evaluation. I have also advised the patient to continue stretching and use [place] balm but advised not to use heat or ice on top of the [place] balm due to the risk of carrasco Annual physical exam 07/05/2024 Assessment & Plan (07/05/2024 5:08 PM EDT): Patient recently had labs done at [facility] in May which included a hemoglobin A1c noted at 6.6 and lipid panel which was noted well within normal limits. She does have a TSH that is pending from her lumber chain offbearer to have done and will add a CMP. Patient will follow-up for her annual physical in 1 year ESR raised 05/28/2024 Assessment & Plan (07/05/2024 4:57 PM EDT): Repeat ESR as it was elevated to 82 however her CRP was noted to be negative recently and lab work in May. Assessment & Plan (05/28/2024 5:26 PM EDT): Quite high on labs, ? Due to recent covid, would follow up w/ PCP. Acquired hypothyroidism 04/11/2024 Assessment & Plan (04/22/2025 6:16 PM EDT): Reports good consistency taking rx. @ times taking w/ other meds including MVI. Reviewed appropriate administration of rx, ok to take overnight when gets up to go to the bathroom. Will repeat w/ next labs. Assessment & Plan (03/11/2025 1:04 PM EDT): Patient followed by endocrinology with her last TSH noted at 0.90 back in October 2024. She will be continued on levothyroxine 137 mcg daily. Assessment & Plan (10/23/2024 2:18 PM EST): Reports good consistency taking rx appropriately. Awaiting labs done today. Will adjust rx as appropriate. Assessment & Plan (07/24/2024 10:06 AM EST): TSH low on current rx (average daily dose of 150 mcg). Will shift to 137 mcg daily & repeat labs in ~ 2 months (to hold biotin prior to labs) Assessment & Plan (07/05/2024 5:01 PM EDT): Patient's last TSH was 0.23 back in March 2024. Patient is followed by endocrinology and has lab work pending. She will continue her levothyroxine. Assessment & Plan (05/28/2024 5:22 PM EDT): Euthyroid on current rx. Assessment & Plan (04/11/2024 4:18 PM EDT): Levels have been somewhat inconsistent. Discussed appropriate administration of rx. To separate from calcium, iron or MVI by several hours. To hold biotin for 5-7 days prior to checking labs again in 6-8 weeks. Bilateral carotid artery stenosis 08/05/2023 Overview (04/10/2024): Last Assessment & Plan: Unchanged carotid bruit on exam today; no symptoms concerning for worsening disease. We will continue to monitor with serial imaging as appropriate. Assessment & Plan (07/05/2024 4:59 PM EDT): Patient followed by cardiology and she was recently seen yesterday. Her Benicar HCT was doubled. ECHO 04/27 EF 60-65%. Carotid duplex in 07/28 <50% bilateral internal carotid arteries but hemodynamically significant stenosis of the left subclavian artery. Asthma-COPD overlap syndrome 06/17/2023 Overview (04/10/2024): Last Assessment & Plan: The patient has close follow-up planned with her vegetable farm worker regarding her recent pulmonary illness; she has [...] time a stress test may be indicated. Assessment & Plan (03/11/2025 12:59 PM EDT): Patient follows with pulmonary for her asthma/COPD overlap and asbestos induced pleural plaque. She mentions that she also follows with Dr. Osorio for sleep apnea where she uses a BiPAP. Continue Incruse, singular, ventolin, and nebulizers Assessment & Plan (07/05/2024 5:00 PM EDT): Patient follows with pulmonary for her asthma/COPD overlap and asbestos induced pleural plaque. She mentions that she also follows with Dr. Osorio for sleep apnea where she uses a BiPAP. Continue Incruse, Dulera, and nebulizers Hyperlipidemia 06/17/2023 Overview (04/10/2024): Last Assessment & Plan: The patient's most recent lipid panel completed 2023 reveals an LDL of 51 which is at goal for this patient has both coronary artery disease as well as diabetes. Continue statin at current dose. Assessment & Plan (03/11/2025 1:01 PM EDT): Patient follows with cardiology with her last lipid panel being in October 2024 with an LDL of 38 and triglycerides of 161. She is on simvastatin 40 mg p.o. daily. Assessment & Plan (07/05/2024 5:01 PM EDT): Last lipid panel done in May 2024 was well within normal limits. Continue simvastatin 20 mg p.o. nightly Obstructive sleep apnea 05/12/2017 Assessment & Plan (07/05/2024 5:00 PM EDT): Continue BiPAP Primary immunodeficiency syndrome 06/20/2015 Overview (04/10/2024): Followed by dhruv norris at [facility] Coronary artery disease invo lving seneca coronary artery of sen[place] heart without angina pectoris 11/20/2013 Overview (05/28/2024): Last Assessment & Plan: The patient offers no anginal symptoms to cause concern for underlying ischemia or the need for further testing. Continue aspirin and statin. Patient advised to seek emergency medical attention by calling 911 if they were to develop severe dyspnea, chest pain that did not resolve with rest, or if they were to faint. HTN (hypertension) 08/05/2011 Overview (04/10/2024): Last Assessment & Plan: The patient was [...] and following up with routine medical care. Assessment & Plan (03/11/2025 12:55 PM EDT): Well-controlled on Benicar 40/25 mg p.o. daily Assessment & Plan (07/05/2024 4:59 PM EDT): Continue Benicar/HCT 40/25 mg p.o. daily Common variable immunodeficiency, unspecified GERD (gastroesophageal reflux disease) 9 Assessment & Plan (03/11/2025 1:02 PM EDT): Continue omeprazole 40 mg daily Assessment & Plan (07/05/2024 5:03 PM EDT): Continue omeprazole 40 mg p.o. 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 twice daily as needed and Adderall XR 30 mg every morning. Assessment & Plan (07/05/2024 1:58 PM EDT): Patient follows the [place] [facility] [facility], and maintained on Adderall XR and Modafinil bid prn Type 2 diabetes mellitus with peripheral neuropa thy Assessment & Plan (04/22/2025 6:18 PM EDT): Control had been good on low dose metformin. We had tried shifting to ozempic for non-glycemic benefits (weight, cardiovascular, renal), but did not tolerate. Control appears adequate off of medications at present. Discussed options of ongoing efforts @ improving diet/activity, resuming metformin or trying an alternative GLP1. She prefers to continue to work on eating healthy & keeping active for now. Foot & nail care good. Up to date with ophtho. Umalb/creat up to date, normal. BP under reasonable control. Assessment & Plan (03/11/2025 1:00 PM EDT): Patient currently diet controlled diabetes. Patient's last hemoglobin A1c was 6.5 back in March 2024. She follows with endocrinology. She used to be on low-dose metformin however this has been stopped. We will obtain a repeat hemoglobin A1c Assessment & Plan (10/23/2024 2:20 PM EST): Control had been good on low dose metformin. Tried shifting to ozempic for non-glycemic benefits (weight, cardiovascular, renal), but did not tolerate. She has been off track with diet (WW) but hoping to get back on track. If she does so, I would assume she will be able to maintain control without medication, at least in the short term. Will try to add on HbA1c to labs today, or will order separately if needed. Continue to work on eating healthy & keeping active. Up to date with ophtho. Umalb/creat up to date, normal. BP under reasonable control. Assessment & Plan (08/06/2024 3:29 PM EST): She brought in her ozempic pen to be show how to use it. Reviewed the storage of ozempic pens for both prior to first injection from the pen and then after the first injection. Reviewed injection sites and how to rotate. Reviewed the timing of medication being once a week and the same day weekly. Reviewed what to do when missing an injection. She was shown how to set up the pen and inject. She demonstrated good understanding via teach back. She gave herself the first injection in office without any issues. Will discuss the increasing of dosing with Dr Plummer and then reach out to her through the patient gateway. To call or message if she has any issues with side effects and tolerance. Assessment & Plan (07/24/2024 10:05 AM EST): Control has been good on low dose metformin. Will try to shift to ozempic for non-glycemic benefits (weight, cardiovascular, renal). Reviewed risks/benefits of ozempic & titration. Continue to work on eating healthy & keeping active. Up to date with ophnatashaoMadi Ruizalb/creat up to date, normal. BP not optimal @ home, good today after recent adjustments by cardiology. Assessment & Plan (07/05/2024 5:02 PM EDT): Patient's last hemoglobin A1c in our records was back in March of 6.5 however she did have a repeat in May which was noted at 6.6 at [facility]. She is maintained on metformin XR 500 mg p.o. daily. She does follow with endocrinology and does not check her blood sugars. Assessment & Plan (05/28/2024 5:22 PM EDT): Control excellent on very low dose metformin. Reviewed risks/benefits of ozempic. Will readdress @ future visits.Continue to work on eating healthy & keeping active. Up to date with ophtho. Umalb/creat up to date, normal. Assessment & Plan (04/11/2024 4:16 PM EDT): Control excellent on very low dose metformin. Discussed options to improve control w/ risks/benefits, glycemic and non-glycemic (weight, CV, renal). Would consider shifting to a GLP1 agonist, reviewed risks/benefits, she will consider. Continue to work on eating healthy & keeping active. Up to date with ophtho. Foot & nail care good. Umalb/creat up to date, normal. Hair loss Assessment & Plan (04/22/2025 6:20 PM EDT): May try an alternative topical rx per hairdresser. Will include labs for potential causes w/ next labs (ferritin/DHEAS/testosterone). Assessment & Plan (10/23/2024 2:21 PM EST): Will include labs for potential causes w/ next labs (ferritin/DHEAS/testosterone). Reviewed ddx & evaluation & rx options. Resolved Problems Problem Noted Date Diagnosed Date Resolved Date Other pneumonia, unspecified organism 11/07/2024 03/11/2025 Thrush 09/27/2024 03/11/2025 Assessment & Plan (09/27/2024 2:02 PM EST): Secondary to steroid inhalers. Patient does carry a history of thrush secondary to this. She follows with Dr. Osorio for her vegetable farm worker and is going to question a different medication secondary to recurrent thrush infections. Patient mentions he did mention Daliresp but I also asked her to inquire about Dupixent. -Patient noted to have noted white patches over the tongue which are easily scraped off. Significant of thrush. Will start nystatin swish and swallow 4 times a day for 7 days. Bulky or enlarged uterus 07/24/202403/2025 Overview (07/24/2024): Measurements on ultrasound July 2024:8.7 x 5.6 x 6.5 cm, with calcifications Assessment & Plan (07/24/2024 6:34 PM EST): No indication for any surgical intervention at this time, this is more of an incidental finding, and to ensure stability of size I have ordered an ultrasound in 6 months. If there is no enlargement, she does not need to continue with ultrasounds going forward Left shoulder pain 07/05/2024 Assessment & Plan (07/05/2024 5:06 PM EDT): Patient states that she has had left shoulder pain for quite some time. We will obtain a left shoulder x-ray depending on results will defer further imaging if patient requires referral to Ortho. Needs flu shot 07/05/2024 07/24/2024 Encounter for screening mamm ogram for malignant neoplasm of breast 07/05/2024 07/24/2024 Assessment & Plan (07/05/2024 5:09 PM EDT): Last mammogram noted in November 2023 noted no malignancy. Will order mammogram to be completed at [facility] in November of next year. LLQ pain 07/05/2024 03/11/2025 Assessment & Plan (07/05/2024 5:08 PM EDT): Patient noted to have a palpable mass in her left lower quadrant with tenderness to palpation. We will obtain transvaginal/pelvic ultrasound We will also obtain an urgent CT of her abdomen and pelvis at [facility] Her last colonoscopy was years ago and was told that she did not need to have a further 1. Her last Pap was years ago as well. 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 Fatty liver 07/06/2021 03/11/2025 Assessment & Plan (07/05/2024 2:22 PM EDT): Diet and exercise Diverticulosis 07/06/2021 07/05/2024 Vitamin D deficiency 02/26/2021 024 Chronic kidney disease 05/23/201903/11 Assessment & Plan (07/05/2024 5:03 PM EDT): states her kidney function is being followed by immunology. As of 05/29 her creatinine was 0.83. Will obtain a CMP and refer to nephrology Dr. Moore Asbestos-induced pleural plaque 12/12/2017 07/05/2024 Gluten-responsive sprue 06/20/201506/07 Allergic rhinitis 02/09/2010 07/05/2024 Osteoarthritis 03/23/2009 07/05/2024 Fibromyalgia 03/23/2009 07/05/2024 intermediate manager current use of ora l hypoglycemic drug 10/23/2024 Muscle cramps 03/11/2025 Assessment & Plan (07/05/2024 5:04 PM EDT): She has not had any further symptoms. Patient noted to have muscle cramps in her forearm hands and feet and was seen and evaluated and underwent labs including Lyme and magnesium which were noted to be negative. Assessment & Plan (05/28/2024 5:25 PM EDT): Uncertain etiology. Nothing on labs what would explain. Discussed various strategies to try to alleviate, including hydration, could try diet tonic water. Encounters Date Type Department Care Team Description 04/22/2025 1:00 PM EDT Office Visit [facility] Endocrinology [address] [place] [phone] Anastasia Plummer MD Type 2 diabetes mellitus with peripheral neuropathy (Primary Dx); Acquired hypothyroidism; Hair loss 03/12/2025 9:45 AM EDT - 03/12/2025 11:59 PM EDT Hospital Encounter [address] [place] [address] Mitch Gonzalez PA-C Discharge Disposition: Home or Self Care 03/12/2025 9:45 AM EDT - 03/12/2025 11:59 PM EDT Hospital Encounter [address] [place] [address] Mitch Gonzalez PA-C Discharge Disposition: Home or Self Care 03/11/2025 12:13 PM EDT - 03/11/2025 11:59 PM EDT Hospital Encounter [facility] Laboratory [address] [place] [address] Mitch Gonzalez PA-C Discharge Disposition: Home or Self Care 03/11/2025 11:20 AM EDT Office Visit [facility] Internal Medicine [address] [place] [address] Mitch Gonzalez PA-C Type 2 diabetes mellitus with peripheral neuropathy (Primary Dx); GERD (gastroesophageal reflux disease); Acute pain of both knees; Cervicalgia; Primary hypertension; Asthma-COPD overlap syndrome; Hyperlipidemia, unspecified hyperlipidemia type; Narcolepsy due to underlying condition without cataplexy; Acquired hypothyroidism 03/11/2025 Refill [facility]ology [address] [place] [address] Alondra Quach MA 02/08/2025 10:11 AM EDT - 02/08/2025 11:59 PM EDT Hospital Encounter [facility] Laboratory [address] [place] [address] Afshan Goldstein NP Discharge Disposition: Home or Self Care from Last 3 Months Immunizations Immunization Administration Dates Next Due COVID-19 (Pre) Moderna Vaccine, Bivalent 6mo-5yrs 07/12/2022 COVID-19 (Pre) Moderna Vaccine, mRNA, PF 09/01/2023,11/07/2021,04/23/2021,12/13,11/15/2020 COVID-19 Moderna Spikevax Vaccine 12+ 07/26/2024 INFLUENZA, SPLIT VIRUS, TRIV ALENT W/ PRESERVATIVE IM 06/22/2016,06/12/2015,06/05/2013,07/04 Immune Globulin 12/22/2020,,12/22/2020,12/01,12/01/2020,12/01/2020,12/01/2020 ,12/01/2020 Influenza High-Dose Quadriva lent Preservative Free IM 05/12/2021 Influenza High-Dose Trivalen t Preservative Free IM 07/05/2024,06/29/2023,06/25/2019,06/28 Influenza Quadrivalent Prese rvative Free IM 06/23/2020,07/06/2018 Influenza, Unspecified Formulation 06/19/2022 Influenza, whole 05/20/2009 MMR 10/27/2009 Pneumococcal conjugate PCV13 12/28/2016,12/08/19 17 Pneumococcal polysaccharide PPSV23 08/05/1996 RSV Vaccine (monovalent, adjuvanted) 10/06/2023 Td (adult),2 Lf Tetanus Toxo id, PF, Adsorbed 11/19/2022 Tdap 10/31/2012,07/17/2007 Zoster recombinant 08/20/2020,08/06/2020 Family History Medical History Relation Comments Alzheimer's disease Father Heart attack Father Parkinson's disease Father Diabetes Maternal Cousin Diabetes Maternal Grandfather ? with DM Cardiovascular disease Mother Hypertension Mother Alzheimer's disease Sister 1 Cancer Sister 1 Rapid growing th roat cancer - had agressive chemo, cancer free now. She never smoked but her did. Asthma Sister 2 Cancer Sister 2 Bety s twin - Lukemia very slow growing Parkinson's disease Sister 2 Asthma Sister 3 Hypertension Sister 3 Leukemia Sister 3 Thyroid disease Sister 3 Hypertension Sister 4 Throat cancer Sister 4 Relation Status Comments Brother Father Maternal Cousin Maternal Grandfather Mother Sister 1 Sister 2 Alive Sister 3 Alive Sister 4 Alive Social History Tobacco Use Types Packs/Day Years Used Date Smoking Tobacco: Former Cigarettes 2 14 0 09/05/1969 - 1983 Smokeless Tobacco: Never Tobacco Cessation:Counseling Given: Not Answered Comments:Started smoking cigarettes at 19 y/o, was a heavy smokers smoked 2 PPD quit 1984 Alcohol Use Standard Drinks/Week Comments Not Currently 0 (1 standard drink = 0.6 oz pur e alcohol) Child or Family Care Answer Date Record [...] Orientation Straight 04/24/2024 1: 57 PM EDT Last Filed Vital Signs Vital Sign Reading Time Taken Comments Blood Pressure 116/64 04/22/2025 1:02 PM EDT Pulse 70 04/22/2025 1:02 PM EDT Temperature 36.1 C (97 F) 10/23/2024 11:38 AM EST Respiratory Rate 16 03/11/2025 11:13 AM EDT Oxygen Saturation 94% 04/22/2025 1:02 PM EDT Inhaled Oxygen Concentration - - Weight 105.2 kg (232 lb) 04/22/2025 1:02 PM EDT Height 154.9 cm (5' 0.98 ) 04/22/2025 1:02 PM ED T Body Mass Index 43.86 04/22/2025 1:02 PM EDT Plan of Treatment Upcoming Encounters Date Type Department Care Team (Late st Contact Info) Description 06/11/2025 11:20 AM EDT Office Visit [facility] Internal Medicine [address] [place] [address] Mitch Gonzalez PA-C [address] [place] [address] [email or web address] 10/29/2025 11:20 AM EST Office Visit [facility] Endocrinology [address] [address] [place] [phone] Anastasia Plummer MD [address] [place] [phone] [email or web address] Health Maintenance Due Date Last Done Comments PNEUMOCOCCAL VACCINES (50+ years) (3 of 3 - PPSV23, PCV20 or PCV21) 02/22/2017 12/28/2016, 12/07/2016, 08/05/1996 ZOSTER VACCINES (2 of 2) 10/15/2020 08/20/2020, 1210/2019 COVID-19 VACCINE ( season) 2025 07/26/2024, 09/01/2023, 07/12/2022, Additional history exists INFLUENZA VACCINE (#1) 2025 , 06/29/2023, 06/19/2022, Additional history exists DIABETIC EYE EXAM 09/06/2025 09/06/2024, 08/31/2023 HEMOGLOBIN A1C 09/11/2025 03/11/2025, 07/06, 05/25/2024, Additional history exists BLOOD PRESSURE 10/23/2025 04/22/2025 LIPID PANEL 10/23/2025 10/23/2024, 05/07, 03/22/2024, Additional history exists TSH LEVEL 10/23/2025 10/23/2024, 06/07, 03/22/2024 POTASSIUM LEVEL 01/22/2026 01/22/2025, 06/07, 05/25/2024 CREATININE LEVEL 02/08/2026 02/08/2025, , 11/16/2024, Additional history exists DEPRESSION SCREENING 03/06/2026 03/06/2025 Adult Td,Tdap Booster 11/19/2032 11/19/2022 , 10/31/2012, 07/17/2007 HEPATITIS C SCREENING Completed 03/02/2013 OSTEOPOROSIS SCREENING INITIAL (ONE-TIME) Completed 11/09/2021 RSV VACCINE Completed 10/06/2023 SMOKING STATUS SCREENING (Once After 26 Yrs) Completed 03/11/2025 HEPATITIS A VACCINES Aged Out No long er eligible based on patient's age to complete this topic HIB VACCINES Aged Out No longer eligi ble based on patient's age to complete this topic MENINGOCOCCAL VACCINES (ACWY) Aged Out No longer eligible based on patient's age to complete this topic MENINGOCOCCAL VACCINES (B) Aged Out N o longer eligible based on patient's age to complete this topic Medical Devices Not on file Procedures Procedure Name Priority Date/Time Associated Diagnosis Comments XR CERVICAL SPINE 2-3 VIEWS Routine 03/12/2025 10:19 AM EDT Cervicalgia XR KNEE 4 OR MORE VIEWS (BILATERAL) Routine 03/12/2025 10:16 AM EDT Acute pain of both knees HEMOGLOBIN A1C Routine 03/11/2025 12:13 PM EDT Type 2 diabetes mellitus with peripheral neuropathy CREATININE/EGFR Routine 02/08/2025 10:11 AM EDT Common variable immunodeficiency IMMUNOGLOBULIN G Routine 02/08/2025 10:1 1 AM EDT Common variable immunodeficiency BASIC METABOLIC PANEL Routine 01/22/2025 8:33 AM EDT Stage 3 chronic kidney disease, unspecified whether stage 3a or 3b CKD 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, unspecified whether seneca or transplanted heart Hypertension, unspecified type LIPID PANEL Routine 10/23/2024 8:09 AM EST Hyperlipidemia, unspecified hyperlipidemia type TSH WITH REFLEX Routine 10/23/2024 8:09 AM EST Acquired hypothyroidism HM DIABETES EYE EXAM FOR RESULT ENTRY ONLY Routine 09/06/2024 OUTSIDE BONE DENSITY SCREENING Routine 11/09/2021 OUTSIDE HEPATITIS C VIRUS SCREENING Routine 03/02/2013 from Last 3 Months or Most Recently Relevant to Health Maintenance Results * XR CERVICAL SPINE 2-3 VIEWS (03/12/2025 10:19 AM EDT) Anatomical Region Laterality Modality C-spine Computed Radiogr aphy 03/12/2025 4:52 PM EDT Impressions 03/12/2025 4:53 PM EDT Degenerative changes. No acute osseous abnormality. Narrative 03/12/2025 4:53 PM EDT XR CERVICAL SPINE 2-3 VIEWS Referring clinician's provided indication for this examination in Epic: Pain COMPARISON: None FINDINGS: Multilevel disc height loss and uncovertebral hypertrophy greatest from C5 to C7. Multilevel facet osteoarthrosis. No listhesis. No acute fracture or compression fracture. Procedure Note Malathi Godoy MD - 03/12/2025 XR CERVICAL SPINE 2-3 VIEWS Referring clinician's provided indication for this examination in Epic:Pain COMPARISON: None FINDINGS: Multilevel disc height loss and uncovertebral hypertrophy greatest from C5to C7. Multilevel facet osteoarthrosis. No listhesis. No acute fracture orcompression fracture. IMPRESSION: Degenerative changes. No acute osseous abnormality. Mitch Gonzalez PA-C IMG XR SPINE Final Result * XR KNEE 4 OR MORE VIEWS (BILATERAL) (03/12/2025 10:16 AM EDT) Anatomical Region Laterality Modality Knee Bilateral, Knee Right, Knee Left Computed Radiography 03/12/2025 4:50 PM EDT Impressions 03/12/2025 4:51 PM EDT Bilateral total knee arthroplasties. No evidence of hardware complication. Narrative 03/12/2025 4:51 PM EDT XR KNEE 4 OR MORE VIEWS (BILATERAL) Referring clinician's provided indication for this examination in Epic: Pain COMPARISON: None FINDINGS: Right Knee: There is a total knee arthroplasty. Alignment is anatomic. No evidence of loosening. No joint effusion. No acute fracture. Left Knee: There is a total knee arthroplasty. Alignment is anatomic. No evidence of loosening. No joint effusion. No acute fracture. Procedure Note Malathi Godoy MD - 03/12/2025 XR KNEE 4 OR MORE VIEWS (BILATERAL) Referring clinician's provided indication for this examination in Epic:Pain COMPARISON: None FINDINGS: Right Knee: There is a total knee arthroplasty. Alignment is anatomic. Noevidence of loosening. No joint effusion. No acute fracture. Left Knee: There is a total knee arthroplasty. Alignment is anatomic. Noevidence of loosening. No joint effusion. No acute fracture. IMPRESSION: Bilateral total knee arthroplasties. No evidence of hardwarecomplication. Mitch Gonzalez PA-C IMG XR LOWER EXTREMITY Final Result * (ABNORMAL) Hemoglobin A1c (03/11/2025 12:13 PM EDT) HEMOGLOBIN A1C 6.7(H) 4.3 - 5.8 % [facility] Blood 03/11/2025 12:1 3 PM EDT 03/11/2025 12:17 PM EDT Mitch Gonzalez PA-C LAB BLOOD ORDERABLES Final Re sult Performing Organization Address [facility] Co de Phone Number [address] [address] * Creatinine/eGFR (02/08/2025 10:11 AM EDT) CREATININE 0.70 0.5 - 1.5 mg/dL [facility] EGFR 90 >59 mL/min/1.7 3m2 [facility] Comment:Estimated glomerular filtration rate calculated using the CKD-EPI refit equation. Blood 02/08/2025 10:1 1 AM EDT 02/08/2025 10:14 AM EDT Afshan Goldstein COMMERCIAL LOAN ASSISTANT LAB BLOOD ORDERABLES Final Re sult Performing Organization Address [facility] Co de Phone Number [address] [address] * Immunoglobulin G (02/08/2025 10:11 AM EDT) IMMUNOGLOBULIN G 1,050 700 - 1,600 mg/dL [facility] Blood 02/08/2025 10:1 1 AM EDT 02/08/2025 10:14 AM EDT Afshan Goldstein COMMERCIAL LOAN ASSISTANT LAB BLOOD ORDERABLES Final Re sult Performing Organization Address [facility]/ZIP Co de Phone Number [address] [address] * (ABNORMAL) Basic metabolic panel (01/22/2025 8:33 AM EDT) SODIUM 139 133 - 146 mmol/L [facility] CHLORIDE 102 96 - 108 mmol/L [facility] POTASSIUM 3.8 3.3 - 5.1 mmol/L [facility] CO2 27 21 - 35 mmol/L [facility] BUN 21(H) 6 - 19 mg/dL [facility] CREATININE 0.80 0.5 - 1.5 mg/dL [facility] GLUCOSE 135(H) 70 - 99 mg/dL [facility] CALCIUM 9.2 8.4 - 10.3 mg/dL [facility] EGFR 76 >59 mL/min/1.7 3m2 [facility] Comment:Estimated glomerular filtration rate calculated using the CKD-EPI refit equation. ANION GAP 14 10 - 20 mmol/L [facility] Blood 01/22/2025 8:33 AM EDT 01/22/2025 8:36 AM EDT Marisa Patel NP LAB BLOOD ORDERABLES Final Result Performing Organization Address [facility] Co de Phone Number [address] [address] * TSH with reflex (10/23/2024 8:09 AM EST) TSH 0.90 0.27 - 4.20 uIU/mL [facility] Blood 10/23/2024 8:09 AM EST 10/23/2024 8:13 AM EST Anastasia Plummer MD LAB BLOOD ORDERABLES F inal Result Performing Organization Address [facility]/ZIP Co de Phone Number [address] [address] * (ABNORMAL) Lipid panel (10/23/2024 8:09 AM EST) Pathologist [facility] HDL 37 mg/dL [facility] Comment: Interpretation <40 mg/dL: Low HDL cholesterol (major risk factor for CHD) Greater than or equal to 60 mg/dL: High HDL cholesterol ( negative risk factor for CHD) HDL - cholesterol is affected by a number of factors, e.g. smoking, excerise, hormones, sex and age. CHOLESTEROL 107 0 - 240 mg/dL [facility] TRIGLYCERIDES 161(H) 30 - 160 mg/dL [facility] LDL 38(L) 50 - 129 mg/dL [facility] Comment: LDL levels in terms of risk for coronary heart disease: <100 mg/dL: Optimal 100-129 mg/dL: Near or above optimal 130-159 mg/dL: Borderline high 160-189 mg/dL: High >190 mg/dL: Very High CARDIAC RISK RATIO 2.9(L) 3.3 - 4.4 C [facility] Blood 10/23/2024 8:09 AM EST 10/23/2024 8:13 AM EST Mitch Gonzalez PA-C LAB BLOOD ORDERABLES Final [facility] Organization Address City/State/[facility] Co de Phone Number [address] [address] * DIABETES EYE EXAM FOR RESULT ENTRY ONLY (09/06/2024) [facility] EYE EXAM no retinopathy Historical Provider HEALTH MAINTENANCE Final Result * OUTSIDE BONE DENSITY SCREENING (11/09/2021) [facility] BONE DENSITY SCREENING - EXTERNAL normal Historical Provider HEALTH MAINTENANCE Final Result * Outside Hepatitis C Virus Screening (03/02/2013) [facility] Hepatitis C Screening - External Neg Historical Provider LAB BLOOD ORDERABLES Nika l Result from Last 3 Months or Most Recently Relevant to Health Maintenance Insurance MEDICARE PART A & B [employer] [place] MED[place] SUPPLEMENT [facility] MEDICARE PART A & B [place] [place] MEDEX SUPPLEMENT [address] [place], [place] [id number] MEDICARE PART A & B [employer] [place] MEDEX SUPPLEMENT [facility] MEDICARE PART A & B Member Subscriber Plan / Payer (Ef fective 2013-Present) Name:Gabi Sutton Member ID:[id number] Relation to Subscriber:Self Name:Gabi Sutton Subscriber ID:[id number] Payer ID:[id number] Group ID:Not on file Type:Medicare Address: [facility] [employer] [facility] [address] [place] [address] [place] [phone] [employer] CROSS MEDEX SUPPLEMENT [facility] MEDICARE PART A & B [employer] [place] MED[place] SUPPLEMENT [facility] MEDICARE PART A & B [place] [place] MEDEX SUPPLEMENT [facility] [employer] Care Teams Electrical Automation Engineer Relationship Specialty Start Date End Date Mitch Gonzalez PA-C [address] [place] [address] [email or web address] PCP - General Physician Tent Assembler 07/13/24 Additional Source Comments The information contained in this document represents components of the legal health record. It is not the complete legal health record.[facility]
--- OUTSIDE RECORDS SUMMARY | 2025-05-10 12:11 | XMS_ITS | Encounter Summary ---
Author Organization [facility] Address [address] [place] [address] Care Team Providers Care Dye House Worker Name Role Phone Dominic Gardiner MD Primary Care Provider [phone] Justice Rivero PA-C Primary Care Provider [phone] Erasmo Heredia MD Unavailable Marisa Patel NP Unavailable [phone] Encounter Details Date Type Department Care Team Description 04/25/2019 Telephone Adult Medicine [address] [phone] Dominci Gardiner MD [address] [place] [address] [phone] Social History Tobacco Use Types Packs/Day Years [...] on filedocumented in this encounter Care Teams Dye House Worker Relationship Specialty Start Date End Date Dominic Gardiner MD [address] [place] [address] PCP - General Internal Medicine 05/19/15 12/18/20 Justice Rivero PA-C [address] [place] [address] [phone] PCP - General Internal Medicine 12/19/20 Erasmo Heredia MD [address] [place] [address] Commercial Sewing Instructor Cardiovascular Disease 09/17/21 Marisa Patel NP [address] [place] [address] Cardiology 06/17/23 documented as of this encounter
--- OUTSIDE RECORDS SUMMARY | 2025-05-10 12:11 | XMS_ITS | Encounter Summary ---
Author Organization [facility], Address [address] [place] [address] Phone Care Team Providers Care Synthetic Plasterer Name Role Phone Mitch Gonzalez PA-C Primary Care Provider [phone] Encounter Details Date Type Department Care Team (Late st Contact Info) Description 07/25/2024 Documentation Only [facility], [address] [place] [address] [place], [place] [address] [place] [address] Social History Tobacco Use Types Packs/Day Years Used Date Smoking Tobacco: Former Alcohol Use Standard Drinks/Week Comments No 0 (1 standard drink = 0.6 oz pur e alcohol) Comments Unknown Sex and Gender Information Value Date Recorded Sex Assigned at Female 12/07/2024 3:24 PM EDT Legal Sex Female 4:33 PM EST Gender Identity Female 12/07/2024 3:24 PM EDT Sexual Orientation Straight 12/07/2024 3: 24 PM EDT documented as of this encounter Plan of Treatment Not on file documented as of this encounter Visit Diagnoses Not on filedocumented in this encounter Care Teams Synthetic Plasterer Relationship Specialty Start Date End Date Mitch Gonzalez PA-C [address] [place] [address] PCP - General 07/25/24 documented as of this encounter
--- OUTSIDE RECORDS SUMMARY | 2025-05-10 12:11 | XMS_ITS | Encounter Summary ---
Author Organization [facility] Address [address] [place] [address] Care Team Providers Care Labor Relations Manager Name Role Phone Justice Rivero PA-C Primary Care Provider [phone] Erasmo Heredia MD Unavailable Marisa Patel NP Unavailable [phone] Encounter Details Date Type Department Care Team Description 09/10/2023 Orders Only Medical Records [address] [place] [address] Pretty Gruber OD Social History Tobacco Use Types Packs/Day Years [...] Associated Diagnosis Comments OUTSIDE EYE EXAM Routine 08/31/2023 documented in this encounter Results * OUTSIDE EYE EXAM (08/31/2023) Pretty Gruber OD PROCEDURES documented in this encounter Visit Diagnoses Not on filedocumented in this encounter Care Teams Labor Relations Manager Relationship Specialty Start Date End Date Justice Rivero PA-C [address] [place] [address] PCP - General Internal Medicine 12/19/20 Erasmo Heredia MD [address] [place] [address] Criminal Justice Professor Cardiovascular Disease 09/17/21 Marisa Patel NP [address] [place] [address] Cardiology 06/17/23 documented as of this encounter
--- OUTSIDE RECORDS SUMMARY | 2025-05-10 12:11 | XMS_ITS | Encounter Summary ---
Author Organization [facility] Address [address] [place] [address] Care Team Providers Care Schedule Clerk Name Role Phone Dominic Gardiner MD Primary Care Provider [phone] Justice Rivero PA-C Primary Care Provider [phone] Erasmo Heredia MD Unavailable Marisa Patel NP Unavailable [phone] Encounter Details Date Type Department Care Team Description 10/26/2019 Cctv Technician Report Medical Records [address] [place] [address] Social History Tobacco Use Types Packs/Day Years [...] on filedocumented in this encounter Care Teams Schedule Clerk Relationship Specialty Start Date End Date Dominic Gardiner MD [address] [place] [address] [phone] PCP - General Internal Medicine 05/19/15 12/18/20 Justice Rivero PA-C [address] [place] [address] PCP - General Internal Medicine 12/19/20 Erasmo Heredia MD [address] [place] [address] Reverse Unit Operator Cardiovascular Disease 09/17/21 Marisa Patel NP [address] [place] [address] Cardiology 06/17/23 documented as of this encounter
--- OUTSIDE RECORDS SUMMARY | 2025-05-10 12:11 | XMS_ITS | Encounter Summary ---
Author Organization [facility] Address [address] [place] [address] Care Team Providers Care Buying Intern Name Role Phone Dominic Gardiner MD Primary Care Provider [phone] Justice Rivero PA-C Primary Care Provider [phone] Erasmo Heredia MD Unavailable Marisa Patel NP Unavailable [phone] Encounter Details Date Type Department Care Team Description 02/20/2016 Metal Lather Report Medical Records [address] [place] [address] Estuardo العلي MD Social History Tobacco Use Types Packs/Day [...] on filedocumented in this encounter Care Teams Buying Intern Relationship Specialty Start Date End Date Dominic Gardiner MD [address] [place] [address] [phone] PCP - General Internal Medicine 05/19/15 12/18/20 Justice Rivero PA-C [address] [place], [place] [phone] PCP - General Internal Medicine 12/19/20 Erasmo Heredia MD [address] [place], [place] [phone] Casserole Preparer Cardiovascular Disease 09/17/21 Marsia Patel NP [address] [place] [address] Cardiology 06/17/23 documented as of this encounter
--- OUTSIDE RECORDS SUMMARY | 2025-05-10 12:11 | XMS_ITS | Encounter Summary ---
Author Organization [facility] Address [address] [place] [address] Care Team Providers Care Crystal Gazer Name Role Phone Dominic Gardiner MD Primary Care Provider [phone] Justice Rivero PA-C Primary Care Provider [phone] Erasmo Heredia MD Unavailable Marisa Patel NP Unavailable [phone] Encounter Details Date Type Department Care Team Description 09/01/2016 Spinner Box Report Medical Records [address] [place] [address] Torie Claros NP Social History Tobacco Use Types Packs/Day [...] on filedocumented in this encounter Care Teams Crystal Gazer Relationship Specialty Start Date End Date Dominic Gardiner MD [address] [place] [address] PCP - General Internal Medicine 05/19/15 12/18/20 Justice Rivero PA-C [address] [place], [place] [phone] PCP - General Internal Medicine 12/19/20 Erasmo Heredia MD [address] [place], [place] [id number] Tank Driver Cardiovascular Disease 09/17/21 Marisa Patel NP [address] [place] [address] Cardiology 06/17/23 documented as of this encounter
--- OUTSIDE RECORDS SUMMARY | 2025-05-10 12:11 | XMS_ITS | Clinical Summary ---
Author Organization [facility], Address [address] [place] [address] Phone Care Team Providers Care Velvet Weaver Name Role Phone Mitch Gonzalez PA-C Primary Care Provider [phone] Social History Tobacco Use Types Packs/Day Years [...] Orientation Straight 12/07/2024 3: 24 PM EDT Last Filed Vital Signs Vital [...] 05/23/2019 12:00 PM EDT Plan of Treatment Health Maintenance Due Date Last Done Comments Hepatitis B Vaccine (1 of 3 - Risk 3-dose series) 2008 Pneumococcal Vaccine: 50+ Ye ars (3 of 3 - PCV20 or PCV21) 02/22/2017 12/28/2016, 12/07/2016, 08/05/1996 Diabetes: Ophthalmology Exam 11/26/2019 Diabetes: Pedal Pulse Checked 11/26/2019 Diabetes: Sensory Foot Exam 11/26/2019 Diabetes: Visual Foot Exam 11/26/2019 Diabetes: Hemoglobin A1C 08/24/2024 05/25/2024 Influenza Vaccine (#1) 2025 4, 06/29/2023, 06/20/2023, Additional history exists Pneumococcal Vaccine: Peds ( 0 to 5 Years) and At-Risk Patients (6 to 49 Years) Discontinued 12/28/2016, 12/07/2016, 08/05/[address] [place] [address] Medicare [facility] Care Teams Velvet Weaver Relationship Specialty Start Date End Date Mitch Gonzalez PA-C [address] [place] [address] PCP - General 07/25/24
--- OUTSIDE RECORDS SUMMARY | 2025-05-10 12:11 | XMS_ITS | Encounter Summary ---
Author Organization [facility] Address [address] [place] [address] Care Team Providers Care Campus Executive Director Name Role Phone Dominic Gardiner MD Primary Care Provider [phone] Justice Rivero PA-C Primary Care Provider [phone] Erasmo Heredia MD Unavailable Marisa Patel NP Unavailable [phone] Encounter Details Date Type Department Care Team Description 02/19/2016 Remotely Operated Vehicle Report Medical Records [address] [place] [address] Jt Thomas MD Social History Tobacco Use [...] on filedocumented in this encounter Care Teams Campus Executive Director Relationship Specialty Start Date End Date Dominic Gardiner MD [address] [place], [place] [phone] PCP - General Internal Medicine 05/19/15 12/18/20 Justice Rivero PA-C [address] [place], [place] [phone] PCP - General Internal Medicine 12/19/20 Erasmo Heredia MD [address] [place], [place] [phone] Barn Worker Cardiovascular Disease 09/17/21 Marisa Patel NP [address] [place] [address] Cardiology 06/17/23 documented as of this encounter
--- OUTSIDE RECORDS SUMMARY | 2025-05-10 12:11 | XMS_ITS | Encounter Summary ---
Author Organization [facility] Address [address] [place] [address] Care Team Providers Care Eye Care Professional Name Role Phone Saritha [place] MD Primary Care Provider [phone] Julio Elliott MD Primary Care Provider Lakeisha Rickey [place] MD Primary Care Provider Unavail able Dominic Gardiner MD Primary Care Provider Justice Rivero PA-C Primary Care Provider [phone] Erasmo Heredia MD Unavailable Marisa Patel NP Unavailable [phone] Encounter Details Date Type Department Care Team Description 09/13/2012 Pt. Referral Request [facility] MyChart [address] [place] [address] Md Luis Social History Tobacco Use Types [...] on filedocumented in this encounter Care Teams Eye Care Professional Relationship Specialty Start Date End Date Saritha [place] MD [address] [place] [address] PCP - General Internal Medicine 08/04/11 10/30/12 Julio Elliott MD [address] [place] [address] PCP - General Internal Medicine 10/31/12 08/29/14 Rickey Delaney MD [address] [place] [address] PCP - General Internal Medicine 08/30/14 05/18/15 Dominic Gardiner MD [address] [place] [address] PCP - General Internal Medicine 05/19/15 12/18/20 Justice Rivero PA-C [address] [place] [address] PCP - General Internal Medicine 12/19/20 Erasmo Heredia MD [address] [place] [address] Process Project Engineer Cardiovascular Disease 09/17/21 Marisa Patel NP [address] [place] [address] Cardiology 06/17/23 documented as of this encounter
--- OUTSIDE RECORDS SUMMARY | 2025-05-10 12:11 | XMS_ITS | Encounter Summary ---
Author Organization [facility] Address [address] [place] [address] Care Team Providers Care E/M Engineer Name Role Phone Dominic Gardiner MD Primary Care Provider [phone] Justice Rivero PA-C Primary Care Provider [phone] Erasmo Heredia MD Unavailable Marisa Patel NP Unavailable [phone] Encounter Details Date Type Department Care Team Description 06/29/2019 Filler Sifter Machine Report Medical Records [address] [place] [address] Social History Tobacco Use Types Packs/Day Years [...] on filedocumented in this encounter Care Teams E/M Engineer Relationship Specialty Start Date End Date Dominic Gardiner MD [address] [place] [address] [phone] PCP - General Internal Medicine 05/19/15 12/18/20 Justice Rivero PA-C [address] [place] [address] PCP - General Internal Medicine 12/19/20 Erasmo Heredia MD [address] [place] [address] Laydown Machine Operator Cardiovascular Disease 09/17/21 Marisa Patel NP [address] [place] [address] Cardiology 06/17/23 documented as of this encounter
--- OUTSIDE RECORDS SUMMARY | 2025-05-10 12:11 | XMS_ITS | Encounter Summary ---
Author Organization [facility] Address [address] [place] [address] Care Team Providers Care First Aid Trainer Name Role Phone Saritha [place] MD Primary Care Provider [phone] Julio Elliott MD Primary Care Provider Lakeisha Rickey [place] MD Primary Care Provider Unavail able Dominic Gardiner MD Primary Care Provider [phone] Justice Rivero PA-C Primary Care Provider [phone] Erasmo Heredia MD Unavailable Marisa Patel NP Unavailable [phone] Encounter Details Date Type Department Care Team Description 05/16/2012 Pt. Referral Request [facility] MyChart [address] [place] [address] Md Luis Social History Tobacco Use Types [...] on filedocumented in this encounter Care Teams First Aid Trainer Relationship Specialty Start Date End Date Saritha Houston MD [address] [place] [address] PCP - General Internal Medicine 08/04/11 10/30/12 Julio Elliott MD [address] [place] [address] PCP - General Internal Medicine 10/31/12 08/29/14 Rickey Delaney MD [address] [place] [address] PCP - General Internal Medicine 08/30/14 05/18/15 Dominic Gardiner MD [address] [place] [address] PCP - General Internal Medicine 05/19/15 12/18/20 Justice Rivero PA-C [address] [place] [address] PCP - General Internal Medicine 12/19/20 Erasmo Heredia MD [address] [place] [address] Product Safety Coordinator Cardiovascular Disease 09/17/21 Marisa Patel NP [address] [place] [address] Cardiology 06/17/23 documented as of this encounter
--- OUTSIDE RECORDS SUMMARY | 2025-05-10 12:11 | XMS_ITS | Encounter Summary ---
Author Organization [facility] Address [address] [place] [address] Care Team Providers Care Service Supervisor Name Role Phone Justice Rivero PA-C Primary Care Provider [phone] Erasmo Heredia MD Unavailable Marisa Patel NP Unavailable [phone] Encounter Details Date Type Department Care Team Description 05/13/2023 Sales Representative Wire Rope Report Medical Records [address] [place] [address] Navid Toussaint MD Social History Tobacco Use Types Packs/Day [...] suspected to have Coronavirus/COVID-19? No / Unsure 04/21/2023 9:08 AM EDT documented as of this encounter Plan of Treatment Not on file documented as of this encounter Visit Diagnoses Not on filedocumented in this encounter Care Teams Service Supervisor Relationship Specialty Start Date End Date Justice Rivero PA-C [address] [place] [address] PCP - General Internal Medicine 12/19/20 Erasmo Heredia MD [address] [place] [address] Marine Engineer Cpvec Cardiovascular Disease 09/17/21 Marisa Patel NP [address] [place] [address] Cardiology 06/17/23 documented as of this encounter
--- OUTSIDE RECORDS SUMMARY | 2025-05-10 12:11 | XMS_ITS | Encounter Summary ---
Author Organization [facility] Address [address] [place] [address] Care Team Providers Care Tripe Washer Name Role Phone Dominic Gardiner MD Primary Care Provider [phone] Justice Rivero PA-C Primary Care Provider [phone] Erasmo Heredia MD Unavailable Marisa Patel NP Unavailable [phone] Encounter Details Date Type Department Care Team Description 05/23/2019 Business Development Intern Report Medical Records [address] [place] [id number] Wilner Robertson, DO Social History Tobacco Use Types Packs/Day Years [...] on filedocumented in this encounter Care Teams Tripe Washer Relationship Specialty Start Date End Date Dominic Gardiner MD [address] [place] [address] PCP - General Internal Medicine 05/19/15 12/18/20 Justice Rivero PA-C [address] [place] [address] [phone] PCP - General Internal Medicine 12/19/20 Erasmo Heredia MD [address] [place] [address] [phone] Principal Statistical Programmer Cardiovascular Disease 09/17/21 Marisa Patel NP [address] [place] [address] [phone] Cardiology 06/17/23 documented as of this encounter
--- OUTSIDE RECORDS SUMMARY | 2025-05-10 12:11 | XMS_ITS | Encounter Summary ---
Author Organization [facility] Address [address] [place] [address] Care Team Providers Care Press Bucker Name Role Phone Justice Rivero PA-C Primary Care Provider [phone] Erasmo Heredia MD Unavailable Marisa Patel NP Unavailable [phone] Encounter Details Date Type Department Care Team Description 12/09/2022 Hospital Medical Records [address] [place] [address] Social History Tobacco Use Types Packs/Day Years [...] suspected to have Coronavirus/COVID-19? No / Unsure 11/23/2022 7:43 AM EDT documented as of this encounter Plan of Treatment Not on file documented as of this encounter Visit Diagnoses Not on filedocumented in this encounter Care Teams Press Bucker Relationship Specialty Start Date End Date Justice Rivero PA-C [address] [place] [address] PCP - General Internal Medicine 12/19/20 Erasmo Heredia MD [address] [place] [address] Public Health Registrar Cardiovascular Disease 09/17/21 Marisa Patel NP [address] [place] [address] Cardiology 06/17/23 documented as of this encounter
--- OUTSIDE RECORDS SUMMARY | 2025-05-10 12:11 | XMS_ITS | Encounter Summary ---
Author Organization [facility] Address [address] [place] [address] Care Team Providers Care Delphi Programmer Name Role Phone Dominic Gardiner MD Primary Care Provider [phone] Justice Rivero PA-C Primary Care Provider [phone] Erasmo Heredia MD Unavailable Marisa Patel NP Unavailable [phone] Encounter Details Date Type Department Care Team Description 01/15/2016 Ward Nurse Report Medical Records [address] [place] [id number] Delfino Osorio MD Social History Tobacco Use [...] on filedocumented in this encounter Care Teams Delphi Programmer Relationship Specialty Start Date End Date Dominic Gardiner MD [address] [place] [address] [phone] PCP - General Internal Medicine 05/19/15 12/18/20 Justice Rivero PA-C [address] [place], [place] [phone] PCP - General Internal Medicine 12/19/20 Erasmo Heredia MD [address] [place], [place] [phone] Messenger Copy Cardiovascular Disease 09/17/21 Marisa Patel NP [address] [place] [address] Cardiology 06/17/23 documented as of this encounter
--- OUTSIDE RECORDS SUMMARY | 2025-05-10 12:11 | XMS_ITS | Encounter Summary ---
Author Organization [facility] Address [address] [place] [address] Care Team Providers Care Ink Blender Name Role Phone Saritha [place] MD Primary Care Provider [phone] Julio Elliott MD Primary Care Provider Lakeisha Rickey Vaughan MD Primary Care Provider Unavail able Dominic Gardiner MD Primary Care Provider Justice Rivero PA-C Primary Care Provider [phone] Erasmo Heredia MD Unavailable Marisa Patel NP Unavailable [phone] Encounter Details Date Type Department Care Team Description 04/25/2012 Pt. Non Urgent Medical Question Adult Medicine [address] [id number] Walt Sinclair [address] [phone] Social History Tobacco Use Types Packs/Day Years [...] on file documented as of this encounter Progress Notes * Carrie Valles M.A. - 04/26/2012 8:30 AM EDTFrom: GABI SUTTON To: TEOFILO Chao Sent: TueApr 25, 2012 7:18 PM Subject: [facility] Address [facility] [address] [address] [place] [address] I'd like to thank you for being so kind to me yesterday. For the first time I felt like someone wasreally listening to me. If I were to guess I'd say it's just a personality clash between me and . I'm sure he's a great physician because my loves him. However, I'd like to continue as your patient, but I'm told you are only there 2 days a week. So, not thinking it through I booked a physical with Dr. Patiño for 2012 because after yesterday I know Dr. [place] isn't the right doctor for me. So, now I'm torn as to what I should do. Do you work with Dr. Patiño too? Please advise. documented in this encounter Plan of Treatment Not on file documented as of this encounter Visit Diagnoses Not on filedocumented in this encounter Care Teams Ink Blender Relationship Specialty Start Date End Date Saritha [place] MD [address] [place] [address] PCP - General Internal Medicine 08/04/11 10/30/12 Julio Elliott MD [address] [place] [address] PCP - General Internal Medicine 10/31/12 08/29/14 Rickey Delaney MD [address] [place] [address] PCP - General Internal Medicine 08/30/14 05/18/15 Dominic Gardiner MD [address] [place] [address] PCP - General Internal Medicine 05/19/15 12/18/20 Justice Rivero PA-C [address] [place] [address] PCP - General Internal Medicine 12/19/20 Erasmo Heredia MD [address] [place] [address] Cow Puncher Cardiovascular Disease 09/17/21 Marisa Patel NP [address] [place] [address] Cardiology 06/17/23 documented as of this encounter
--- OUTSIDE RECORDS SUMMARY | 2025-05-10 12:11 | XMS_ITS | Encounter Summary ---
Author Organization [facility] Address [address] [place] [address] Care Team Providers Care Scaffolding Helper Name Role Phone Dominic Gardiner MD Primary Care Provider [phone] Justice Rivero PA-C Primary Care Provider [phone] Erasmo Heredia MD Unavailable Marisa Patel NP Unavailable [phone] Encounter Details Date Type Department Care Team Description 09/11/2015 Engraver Ornamental Design Report Medical Records [address] [place] [address] Delfino Osorio MD Social History Tobacco Use [...] on filedocumented in this encounter Care Teams Scaffolding Helper Relationship Specialty Start Date End Date Dominic Gardiner MD [address] [place] [address] [phone] PCP - General Internal Medicine 05/19/15 12/18/20 Justice Rivero PA-C [address] [place], [place] [phone] PCP - General Internal Medicine 12/19/20 Erasmo Heredia MD [address] [place], [place] [phone] Solution Spec Cardiovascular Disease 09/17/21 Marisa Patel NP [address] [place] [address] Cardiology 06/17/23 documented as of this encounter
--- OUTSIDE RECORDS SUMMARY | 2025-05-10 12:11 | XMS_ITS | Encounter Summary ---
Author Organization [facility] Address [address] [place] [address] Care Team Providers Care Electrical Controls Engineer Name Role Phone Justice Rivero PA-C Primary Care Provider [phone] Erasmo Heredia MD Unavailable Marisa Patel NP Unavailable [phone] Encounter Details Date Type Department Care Team Description 08/05/2023 Release of Information Medical Records [address] [place] [address] [facility] Social History Tobacco Use Types Packs/Day Years [...] filedocumented in this encounter Care Teams Electrical Controls Engineer Relationship Specialty Start Date End Date Justice Rivero PA-C [address] [place] [address] PCP - General Internal Medicine 12/19/20 Erasmo Heredia MD [address] [place] [address] Senior Data Scientist Cardiovascular Disease 09/17/21 Marisa Patel NP [address] [place] [address] Cardiology 06/17/23 documented as of this encounter
--- OUTSIDE RECORDS SUMMARY | 2025-05-10 12:11 | XMS_ITS | Encounter Summary ---
Author Organization [facility] Address [address] [place] [address] Care Team Providers Care Digital Account Supervisor Name Role Phone Saritha [place] MD Primary Care Provider [phone] Julio Elliott MD Primary Care Provider Lakeisha Rickey Vaughan MD Primary Care Provider Unavail able Dominic Gardiner MD Primary Care Provider Justice Rivero PA-C Primary Care Provider [phone] Erasmo Heredia MD Unavailable Marisa Patel NP Unavailable [phone] Encounter Details Date Type Department Care Team Description 06/20/2012 Pt. Referral Request [facility] MyChart [address] [place] [address] Md Luis Social History Tobacco Use Types [...] on filedocumented in this encounter Care Teams Digital Account Supervisor Relationship Specialty Start Date End Date Saritha [place] MD [address] [place] [address] PCP - General Internal Medicine 08/04/11 10/30/12 Julio Elliott MD [address] [place] [address] PCP - General Internal Medicine 10/31/12 08/29/14 Rickey Delaney MD [address] [place] [address] PCP - General Internal Medicine 08/30/14 05/18/15 Dominic Gardiner MD [address] [place] [address] PCP - General Internal Medicine 05/19/15 12/18/20 Justice Rivero PA-C [address] [place] [address] PCP - General Internal Medicine 12/19/20 Erasmo Heredia MD [address] [place] [address] Glazier Artist Cardiovascular Disease 09/17/21 Marisa Patel NP [address] [place] [address] Cardiology 06/17/23 documented as of this encounter
--- OUTSIDE RECORDS SUMMARY | 2025-05-10 12:12 | XMS_ITS | Clinical Summary ---
Author Organization [address] [facility] Address [address] [place] [address] Phone Care Team Providers Care Manager Of Internal Audit Name Role Phone Mitch oGnzalez Primary Care Provider [phone] Allergies Active Allergy Reactions Criticality Noted Date Comments Adhesive Tape-Silicones 12/18/2014 Other Reaction(s): Rash/Dermatitis Medications diclofenac (VOLTAREN) 1 % topical gel Apply 4 g topically 4 times daily as needed for Other (arthritis pain). 02/23/20 23 Active omeprazole (PriLOSEC) [address] capsule Take 1 capsule (40 mg total) by mouth 1 (one) time each day. 07/12/20 23 Active blood sugar diagnostic (FreeStyle Lite Strips) test strip Use to test blood sugar once daily 01/17/20 24 Active FREESTYLE LANCETS MISC Use to test blood sugar once daily 01/17/20 24 Active cholecalcifero l (VITAMIN D-3) 25 mcg (1,000 unit) capsule Take 1 capsule (1,000 Units total) by mouth 1 (one) time each day. Active aspirin 81 mg EC tablet Take [...] Take 1 Tablet by mouth at bedtime. 06/25/20 Active ipratropium-al buteroL (DUONEB) 0.5-2.5 mg/3 mL nebulizer solution Inhale 3 mL into the lungs 4 times daily. 04/19/20 Active umeclidinium (Incruse Ellipta) 62.5 mcg/actuation inhalation [...] prior to dentist procedure - Oral Active levothyroxine (SYNTHROID, LEVOTHROID) 137 mcg tablet Take 1 tablet (137 mcg total) by mouth 1 (one) time each day before breakfast. Active olmesartan-hyd roCHLOROthiazi de (BENICAR HCT) 40-25 mg per tablet TAKE ONE TABLET BY MOUTH EVERY DAY 90 tablet 3 03/29/20 25 Active simvastatin (ZOCOR) 40 mg tablet TAKE ONE TABLET BY MOUTH DAILY AT BEDTIME 90 tablet 1 04/19/20 25 Active simvastatin (ZOCOR) 40 mg tablet Take 1 tablet (40 mg total) by mouth at bedtime. 90 tablet 1 10/31/19 25 025 Discontinued Active Problems Problem Noted Date Diagnosed Date Abnormal Doppler ultrasound of carotid artery Left upper arm pain 07/24/2024 Assessment & Plan (01/25/2025 9:40 AM EDT): The patient has been having ongoing left upper extremity pain that has been treated from an orthopedic standpoint; she previously had an injection into her shoulder which caused significant improvement in her symptoms. There had been some concern that this was related to underlying subclavian stenosis; however, CTA head/neck from 08/2024 showed no concerning stenosis. She was encouraged to continue following up with her orthopedic provider for further evaluation and treatment, returning to care for any new or worsening symptoms. Carpal tunnel syndrome of left wrist 07/05/2024 Overview (07/05/2024): surgery 2013? Bilateral carotid artery stenosis 08/05/2023 Overview (07/05/2024): Last Assessment & Plan: Unchanged carotid bruit on exam today; no symptoms concerning for worsening disease. We will continue to monitor with serial imaging as appropriate. Assessment & Plan (01/25/2025 9:40 AM EDT): Mild carotid artery stenosis noted on previous carotid duplex from 07/2023; more recent CTA head/neck from 08/2024 showed no visible subclavian arterial stenosis and scattered atherosclerotic calcifications throughout the carotids without any hemodynamically significant stenosis. Will continue to monitor this with serial imaging; blood pressure and lipids are well-controlled. Dizziness 08/05/2023 Subclavian artery stenosis, left ([facility] V24) 1 10/06/2022 Overview (07/05/2024): Last Assessment & Plan: The [...] as increased claudication symptoms or rest pain. Assessment & Plan (01/25/2025 9:40 AM EDT): Asthma-COPD overlap syndrome (CMS/HCC V24, CMS/H CC V28) 06/17/2023 Overview (07/05/2024): Last Assessment & Plan: The patient has close follow-up planned with her candy cutter machine regarding her recent pulmonary illness; she has [...] statin at current dose. Assessment & Plan (01/25/2025 9:40 AM EDT): The patient's most recent lipid panel was completed 10/23/2024 showing an LDL of 38 and triglycerides of 161. LDL goal for this patient with a history of nonobstructive coronary artery disease as well as diabetes is less than 55; LDL is at goal. We discussed dietary changes including limiting carbohydrates/simple sugars as well as increasing activity as tolerated to help decrease triglycerides. Continue simvastatin 40 mg daily. Shortness of breath 06/17/2023 Assessment & Plan (01/25/2025 9:40 AM EDT): As above; shortness of breath is at the patient's typical baseline and she offers no concerns regarding this. She will continue to follow with pulmonology as recommended. History of 2019 novel coronavirus disease (COVID -19) 04/19/2022 Overview (07/05/2024): 02/19/22 Received 2 shots of Evusheld at [facility] for Covid-19 protection. 03/24/22 Tested positive for Covid. I contacted Dr. Hilliard , my Foundation Relations Director from [facility]. He put me on PaxLovid 3 pills daily for 5 days. Began 5 days of quarantine and started PaxLovid on 03/24/22. 04/01/22 Tested negative 04/03/22 Tested positive again. Had Covid rebound. Contacted field operations supervisor doctor at [facility] covering for Dr. Hilliard. Was advised to remain in quarantine for additional 5 days then if no symptoms wear mask for 5 days in public. No further medication needed. 04/09/22 Tested negative again Fatty liver 07/06/2021 Diverticulosis 07/06/2021 Diabetic polyneuropathy asso ciated with type 2 diabetes mellitus ([facility] V24, [facility] V28) 05/12/2021 Vitamin D deficiency 02/26/2021 Bilateral lower extremity edema 02/03/2021 Oculopharyngeal muscular dys trophy ([facility] V24, [facility] V28) 01/09/2021 Overview (07/05/2024): Dx with ENT ( Dr. Abbott) Nipple discharge 10/20/2020 Overview (07/05/2024): Last Assessment & Plan: Discussed differential diagnosis of unilateral nipple discharge. Diagnostic mammogram and breast ultrasound ordered, to be scheduled by patient. Patient to follow-up for annual exam. Episode of recurrent major d epressive disorder ([facility] V24) 09/28/2018 Asbestos-induced pleural plaque 12/12/2017 Chronic obstructive pulmonar y disease (COPD) ([facility] V24, [facility] V28) 05/12/2017 Nephrotic syndrome with morphologic change 05/12 Obstructive sleep apnea syndrome in adult 2016 Assessment & Plan (01/25/2025 9:40 AM EDT): The patient was encouraged to continue with consistent BiPAP use; she is aware of the potential long-term negative implications of untreated sleep apnea as a relates to her cardiovascular health. Bacterial vaccines causing a dverse effect in therapeutic use 01/06/2017 Fibromyalgia 10/23/2015 Gluten-responsive sprue 06/20/2015 Primary immunodeficiency syndrome ([facility] V24) 06/20/2015 Overview (07/05/2024): Followed by dhruv hilliard at [facility] Diabetes mellitus type 2 wit h neurological manifestations ([facility] V24, [facility] V28) 01/10/2014 Coronary artery disease invo lving andreafski coronary artery of andreafski heart without angina pectoris 11/20/2013 Overview (07/05/2024): [...] rest, or if they were to faint. Assessment & Plan (01/25/2025 9:40 AM EDT): Cardiac cath in 2019 revealed nonobstructive disease. The patient presents today reporting mild shortness of breath with exertion that is at her typical baseline given her history of underlying pulmonary disease; she offers no other symptoms to cause concern for underlying ischemia. Now that the weather is nicer, she is outside more and was encouraged to increase her activity level as tolerated, calling the office for any new or worsening exertional symptoms. We will not make any changes to her cardioprotective medical therapies; continue aspirin and simvastatin. We discussed risk reduction through lifestyle modifications including healthy diet, routine exercise, and weight management. The patient was advised to seek emergent medical attention by calling 911 if they were to develop severe dyspnea, chest pain that did not resolve with rest, or if they were to faint. Asthma 10/16/2013 Overview (07/05/2024): Followed by dr valderrama [facility] Hypothyroid 12/16/2011 GERD (gastroesophageal reflux [...] with routine medical care. Assessment & Plan (01/25/2025 9:40 AM EDT): Blood pressure is favorable on current antihypertensive regimen; continue Benicar-hydrochlorothiazide. Most recent metabolic panel shows stable renal function and electrolytes. Narcolepsy 08/05/2011 Overview (07/05/2024): Please see note dated 09/16/11 for more details followed by sleep medicine Resolved Problems Problem Noted Date Diagnosed Date Resolved Date CKD (chronic kidney disease) stage 3, GFR 30-59 ml/min ([facility] V24, [facility] V28) 05/23/2019 01/25/2025 Immunizations Name Administration Dates Next Due Influenza [...] revision 2022 UPPER GASTROINTESTINAL ENDOSCOPY 09/2017 PROCEDURE: ME UPPER GI ENDOSCOPY PERFORMED OTHER SURGICAL HISTORY [...] DX:Asthma; COMME NT: Followed by dr valderrama [facility] Obstructive sleep apnea synd errol in adult 05/12/2017 DX:Obstructive sleep apnea s yndrome in adult Nephrotic syndrome with morp hologic change 05/12/2017 DX:Nephrotic syndrome with morphologic change Diabetes mellitus type 2 wit h neurological manifestations (CMS/HCC V24, CMS/HCC V28) 01/10/2014 DX:Diabetes mellitus type 2 with neurological manifestations (HCC) History of diverticulitis 01/29/2015 DX:His tory of diverticulitis; COMMENT: 06/17 GERD (gastroesophageal reflu x disease) 11/15/2011 DX:GERD (gastroesophageal re flux disease) Gluten-responsive sprue 06/20/2015 DX:Glute n-responsive sprue Bacterial vaccines causing a dverse effect in therapeutic use 01/06/2017 DX:Bacterial vaccines causin g adverse effect in therapeutic use Primary immunodeficiency syn drome ([facility] V24) 06/20/2015 DX:Primary immunodeficiency syndrome (HCC); COMMENT: Followed by dhruv hilliard at [facility] Chronic obstructive pulmonar y disease (COPD) ([facility] V24, [facility] V28) 05/12/2017 DX:Chronic obstructi ve pulmonary disease (COPD) ([facility]) Asbestos-induced pleural plaque 12/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 Morbid obesity with BMI of 4 5.0-49.9, adult ([facility] V24, [facility] V28) 08/30/2013 DX:Morbid obesity wit h BMI of 45.0-49.9, adult ([facility]) Family History Medical History Relation Name Comments No Known Problems Brother No Known Problems Daughter Other: Sj's Father at age 7 0 No Known [...] Sign Reading Time Taken Comments Blood Pressure 125/76 01/25/2025 8:29 AM EDT Pulse 70 01/25/2025 8:29 AM EDT Temperature - - Respiratory Rate - - Oxygen Saturation 98% 01/25/2025 8:29 AM EDT Inhaled Oxygen Concentration - - Weight 109 kg (240 lb) 01/25/2025 8:29 AM EDT Height 154.9 cm (5' 1 ) 01/25/2025 8:29 AM EDT Body Mass Index 45.35 01/25/2025 8:29 AM EDT Plan of Treatment Health Maintenance Due Date Last Done Comments Diabetes: Annual Foot Exam 1960 Hepatitis A Vaccines (1 of 2 - Risk 2-dose series) 11/30/1967 Hepatitis B Vaccines (1 of 3 - Risk 3-dose series) 2008 Pneumococcal Vaccine: 50+ Years (3 of 3 - PPSV23, PCV20 or PCV21) 02/22/2017 12/28/2016, 12/07/2016, 08/05/1996 Zoster Vaccines (2 of 2) 10/15/2020 08/20/2020, 10/2019 Social Influencers of Health Screening 08/14/2022 RSV Immunization Adult Patients (1 - 1-dose 75+ series) 11/30/2023 10/06/2023 Diabetes: Annual Retina Eye Exam 08/31/2024 08/31/2023 Depression Screening 09/05/2024 03/26/2024 Falls Risk Assessment 10/07/2024 10/07/2023 Diabetes: Blood Sugar Control Test (HGBA1C) 11/22/2024 05/25/2024, 05/25/2024, 03/22/2024 Medicare Annual Wellness Visit 03/26/2025 03/26/2024 COVID-19 Vaccine (8 - Moderna risk season) 2025 07/26/2024, 09/01/2023, 09/01/2023, Additional history exists Influenza Vaccine (#1) 2025 , 06/29/2023, 06/20/2023, Additional history exists Diabetes: Annual Urine Albumin-Creatinine Ratio (uACR) 05/25/2025 [...] complete this topic Breast Cancer Screening Discontinued 12/20/19, 12/01/2023, 11/23/2022, Additional history exists HIB Vaccines Aged Out [...] age to complete this topic Meningococcal B Vaccine Aged Out No l onger eligible based on patient's age to complete this topic Varicella Vaccines Aged Out No longer eligible based on patient's age to complete this topic Procedures Procedure Name Priority Date/Time Associated Diagnosis Comments BASIC METABOLIC PANEL Routine 07/19/2024 11:31 AM EST Body mass index 45.0-49.9, adult (CMS/HCC V24, CMS/[facility] V28) HM URINE ALBUMIN CREATININE RATIO Routine 05/25/2024 HEMOGLOBIN [...] Type 2 diabetes mellitus with diabetic polyneuropathy (CMS/HCC V24, CMS/HCC V28) Fatty (change of) liver, not elsewhere classified Chronic kidney disease, stage 3a (CMS/HCC V24, CMS/HCC V28) Localized edema Major depressive disorder, recurrent, unspecified (CMS/HCC V24) Chronic obstructive pulmonary disease, unspecified (CMS/HCC V24, CMS/HCC V28) Obstructive sleep apnea (adult) (pediatric) Nephrotic syndrome with unspecified morphologic changes Fibromyalgia HEPATITIS C SCREENING Routine 11/14/2018 from Last 3 Months or Most Recently Relevant to Health Maintenance Results * (ABNORMAL) Basic metabolic panel (07/19/2024 11:31 AM EST) Sodium 139 133 - 145 mmol/L LAB CHEMISTRY METHOD 07/19/2024 2:[address] [facility] Potassium 4.0 3.5 - 5.5 mmol/L LAB CHEMISTRY METHOD 07/19/2024 2:[address] [facility] Chloride 103 96 - 110 mmol/L LAB CHEMISTRY METHOD 07/19/2024 2:[address] [facility] CO2 31 21 - 32 mmol/L LAB CHEMISTRY METHOD 07/19/2024 2:[address] [facility] Anion Gap 5 3 - 11 LAB CHEMISTRY METHOD 07/19/2024 2:49 PM [facility] Glucose 113(H) 70 - 100 mg/dL LAB CHEMISTRY METHOD 07/19/2024 2:49 PM [facility] BUN 14 5 - 25 mg/dL LAB CHEMISTRY METHOD 07/19/2024 2:49 PM [facility] Creatinine 0.95 0.50 - 1.10 mg/dL LAB CHEMISTRY METHOD 07/19/2024 2:49 PM [facility] eGFR 63 >=60 mL/min/1. 73m2 LAB CHEMISTRY METHOD 07/19/2024 2:49 PM [facility] Comment:Calculation based on the Chronic Kidney Disease Epidemiology Collaboration (CKD-EPI) equation refit without adjustment for race. BUN/Creatinine Ratio 14.7 LAB CHEMISTRY METHOD 07/19/2024 2:49 PM [facility] Calcium 9.9 8.5 - 10.5 mg/dL LAB CHEMISTRY METHOD 07/19/2024 2:49 PM [facility] Blood Venous blood specimen / Unknown Venipuncture / Unknown 07/19/2024 11:31 AM EST 07/19/2024 12:07 PM EST Erasmo Heredia MD LAB BLOOD ORDERABLES Final Resu lt [facility] [address] [place] [address], * HM Urine Albumin Creatinine Ratio (05/25/2024) Urine Albumin Creatinine Ratio abstracted Historical Provider HEALTH MAINTENANCE Final Result * (ABNORMAL) Hemoglobin A1c (05/25/2024) Hemoglobin A1C 6.6(A) <=6.5 % Blood Venous blood specimen / Unknown Historical Provider LAB BLOOD ORDERABLES Nika l Result * (ABNORMAL) Lipid panel (05/25/2024) LDL/HDL Ratio 3 0 - 4 Triglycerides 161(A) 0 - 150 mg/dL Cholesterol 150 0 - 200 mg/dL HDL 53 >=40 mg/dL LDL Cholesterol 65 0 - 100 mg/dL Blood Venous blood specimen / Unknown us Historical Provider LAB BLOOD ORDERABLES Nika l Result * Depression Screening (03/26/2024) Depression Screening abstracted us Historical Provider HEALTH MAINTENANCE Final Result * [...] in conjunction with computer aided detection. Tomosynthesis as well as 2D C-View imaging were obtained. Comparison: Comparison made to multiple prior, most recent November 23, 2022, and most remote September 30, 2016. Breast composition: There are scattered areas of fibroglandular density. Bilateral breasts: No significant masses, suspicious calcifications or other abnormalities are seen in either breast. IMPRESSION: Impression: Bilateral breasts: Negative, no specific mammographic evidence of malignancy. Normal interval follow-up is recommended in 12 [...] in 12 months. BI-RADS: Category 1: Negative Result [facility] Justice VARGAS IMG XR PROCEDURES Final R esult * Falls Risk Assessment (10/07/2023) Pathologist [facility] Falls Risk Assessment abstracted Result [facility] HEALTH MAINTENANCE Final Result * Diabetes Eye Exam (08/31/2023) Diabetes: Annual Retina Eye Exam abstracted Result [facility]ALTH [facility] Final Result * DXA BONE DENSITY STUDY 1+ SITS AXIAL SKEL (11/06/2021 2:17 PM EST) Anatomical Region Laterality Modality Bone Densitometr y 10/21/2021 11:1 9 AM EST Narrative 11/09/2021 1:23 PM EST BONE DENSITY (DEXA) Lumbar Spine T-score is 2.0. (SD relative to 20-29 y/o adult) Z-score is 4.3. (SD relative to age matched peers) This is considered normal by WHO criteria. Left Hip T-score is 1.0. Z-score is 3.0. This is considered normal by WHO criteria. IMPRESSION: This patient is scheduled to have normal bone density by WHO criteria. The [facility] Department of Internal Medicine recommends using National [...] screening schedule based on orestes Maravilla al., [facility] September 23, 2011 for patients with osteopenia [...] normal bone density by WHO criteria. The [facility] Department of Internal Medicine recommendsusing National Osteoporosis [...] alternative screening schedule based on channing Maravilla., [facility] for patients with osteopenia (based on hip BMD T-score) is as follows: * advanced osteopenia (T scores -2.00 to -2.49), BMD testing every year * moderate osteopenia (T scores -1.50 to -1.99), BMD testing every 5years mild osteopenia or normal BMD (T scores -1.50 and higher), BMD testingevery 15 years Justice VARGAS IMG DXA PROCEDURES Final Result * Hepatitis C Screening (11/14/2018) [facility] Hepatitis C Screening abstracted Historical Provider MD HEALTH MAINTENANCE Final Result from Last 3 Months or Most Recently Relevant to Health Maintenance Insurance MEDICARE [facility] [place]ICAID - [place] Advance Directives Documents on File Type Date Recorded Patient Waterproof Coating Machine Tender Expl anation Health Care Decision (hx) 01/31/2014 AD FITZPATRICK DIRECTIVE Health Care Decision (hx) 01/31/2014 AD FITZPATRICK DIRECTIVE Health Care Decision (hx) 01/31/2014 AD FITZPATRICK DIRECTIVE Health Care Decision (hx) 01/31/2014 AD FITZPATRICK DIRECTIVE Health Care Decision (hx) 01/31/2014 AD FITZPATRICK DIRECTIVE Health Care Decision (hx) 01/31/2014 AD FITZPATRICK DIRECTIVE Care Teams Manager Of Internal Audit Relationship Specialty Start Date End Date Mitch Gonzalez PA [address] [place] [id number] PCP - General Internal Medicine 01/25/25
--- OUTSIDE RECORDS SUMMARY | 2025-05-10 12:12 | XMS_ITS | Encounter Summary ---
Author Organization [facility] Address [address] [place] [address] Care Team Providers Care Criminal Justice Social Worker Name Role Phone Julio Elliott MD Primary Care Provider Lakeisha Rickey Vaughan MD Primary Care Provider Unavail able Dominic Gardiner MD Primary Care Provider Justice Rivero PA-C Primary Care Provider [phone] Erasmo Heredia MD Unavailable Marisa Patel NP Unavailable [phone] Encounter Details Date Type Department Care Team Description 12/28/2013 Grain Loader Report Medical Records [address] [place] [address] [place] Social History Tobacco Use Types [...] on filedocumented in this encounter Care Teams Criminal Justice Social Worker Relationship Specialty Start Date End Date Lexi, Julio M., MD PCP - General Internal Medicine 10/31/12 Rickey Delaney MD PCP - General Internal Medicine 08/30/14 05/18/15 Dominic Gardiner MD [address] [place] [id number] PCP - General Internal Medicine 05/19/15 12/18/20 Justice Rivero PA-C [address] [place] [address] [phone] PCP - General Internal Medicine 12/19/20 Erasmo Heredia MD [address] [place] [address] [phone] Citrus Peeler Cardiovascular Disease 09/17/21 Marisa Patel NP [address] [place] [address] [phone] Cardiology 06/17/23 documented as of this encounter
--- OUTSIDE RECORDS SUMMARY | 2025-05-10 12:12 | XMS_ITS | Encounter Summary ---
Author Organization [facility] Address [address] [place] [address] Care Team Providers Care Popcorn Attendant Name Role Phone Justice Rivero PA-C Primary Care Provider [phone] Erasmo Heredia MD Unavailable Marisa Patel NP Unavailable [phone] Encounter Details Date Type Department Care Team Description 03/24/2022 Cooking Chef Report Medical Records [address] [place] [address] [facility] Social History Tobacco Use Types Packs/Day [...] suspected to have Coronavirus/COVID-19? No / Unsure 02/24/2022 12:58 PM EDT documented as of this encounter Plan of Treatment Not on file documented as of this encounter Visit Diagnoses Not on filedocumented in this encounter Care Teams Popcorn Attendant Relationship Specialty Start Date End Date Justice Rivero PA-C [address] [place] [address] PCP - General Internal Medicine 12/19/20 Erasmo Heredia MD [address] [place] [address] Retail Business Manager Cardiovascular Disease 09/17/21 Marisa Patel NP [address] [place] [address] Cardiology 06/17/23 documented as of this encounter
--- OUTSIDE RECORDS SUMMARY | 2025-05-10 12:12 | XMS_ITS | Encounter Summary ---
Author Organization [facility] Address [address] [place] [address] Care Team Providers Care Risk Control Product Liability Director Name Role Phone Dominic Gardiner MD Primary Care Provider [phone] Justice Rivero PA-C Primary Care Provider [phone] Erasmo Heredia MD Unavailable Marisa Patel NP Unavailable [phone] Encounter Details Date Type Department Care Team Description 02/20/2018 Dramatic Teacher Report Medical Records [address] [place] [address] Social History Tobacco Use Types Packs/Day Years [...] on filedocumented in this encounter Care Teams Risk Control Product Liability Director Relationship Specialty Start Date End Date Dominic Gardiner MD [address] [place] [address] [phone] PCP - General Internal Medicine 05/19/15 12/18/20 Justice Rivero PA-C [address] [place] [address] PCP - General Internal Medicine 12/19/20 Erasmo Heredai MD [address] [place] [address] Director Of Planning Cardiovascular Disease 09/17/21 Marisa Patel NP [address] [place] [address] Cardiology 06/17/23 documented as of this encounter
--- OUTSIDE RECORDS SUMMARY | 2025-05-10 12:12 | XMS_ITS | Encounter Summary ---
Author Organization [facility] Address [address] [place] [address] Care Team Providers Care Fire Fighter Name Role Phone Justice Rivero PA-C Primary Care Provider [phone] Erasmo Heredia MD Unavailable Marisa Patel NP Unavailable [phone] Reason for Visit * Reason Comments E-prescribe Rx Request Encounter Details Date Type Department Care Team Description 07/21/2022 Refill Adult Medicine [address] [phone] Justice Rivero PA-C [address] [place] [address] [phone] E-prescribe Rx Request Social History Tobacco Use [...] suspected to have Coronavirus/COVID-19? No / Unsure 06/25/2022 3:31 PM EDT documented as of this encounter Miscellaneous Notes * Telephone Encounter - Areli Bone M.A. - 07/22/2022 1:18 PM EST Lab Results Component Value Date NA 142 06/16/2022 K 4.5 06/16/2022 CO2 30 06/16/2022 CL 105 06/16/2022 BUN 28 06/16/2022 CREAT 0.86 06/16/2022 GLU 93 06/16/2022 CA 10.4 06/16/2022 GFR 71 06/16/2022 JUANITO 06/25/22 - PCP NOV 11/02/22 - PCP * Telephone Encounter - Angel Reese - 07/21/2022 7:42 AM EST Patient would like script to be: E-PRESCRIBED/FAXED TO PHARMACY WHEN WAS THE PATIENT'S LAST APPOINTMENT IN ADULT MEDICINE? 06/25/2022 WHEN WAS THE LAST TIME THE PATIENT SAW THEIR PCP? Same as above Does patient have an upcoming appointment? Yes 11/02/2022 (THE MEDICATION REQUESTED IS ON THE MED LIST ABOVE) All of the medications requested were on the CURRENT MEDS list Did you check the Pharmacy information above?: YES Patient wants: 90 -day supply Is this a mail order prescription request ? NO If the refill is from a FAXED refill request what is the RX # listed on the fax? N/A Patients current insurance carrier is: [place] / [place] / Product Type: MEDICARE [id number] documented in this encounter Plan of Treatment Not on file documented as of this encounter Visit Diagnoses Not on filedocumented in this encounter Care Teams Fire Fighter Relationship Specialty Start Date End Date Justice Rivero PA-C [address] [place] [address] PCP - General Internal Medicine 12/19/20 Erasmo Heredia MD [address] [place] [address] Almond Grinder Cardiovascular Disease 09/17/21 Marisa aPtel NP [address] [place] [address] Cardiology 06/17/23 documented as of this encounter
--- OUTSIDE RECORDS SUMMARY | 2025-05-10 12:12 | XMS_ITS | Encounter Summary ---
Author Organization [facility] Address [address] [place] [address] Care Team Providers Care Boarding Machine Operator Name Role Phone Dominic Gardiner MD Primary Care Provider [phone] Justice Rivero PA-C Primary Care Provider [phone] Erasmo Heredia MD Unavailable Marisa Patel NP Unavailable [phone] Encounter Details Date Type Department Care Team Description 02/24/2018 Business Doc Medical Records [address] [place] [address] Abstract, Provider Social History Tobacco Use Types [...] on filedocumented in this encounter Care Teams Boarding Machine Operator Relationship Specialty Start Date End Date Dominic Gardiner MD [address] [place] [address] [phone] PCP - General Internal Medicine 05/19/15 12/18/20 Justice Rivero PA-C [address] [place] [address] PCP - General Internal Medicine 12/19/20 Ersamo Heredia MD [address] [place] [address] International Organizer Cardiovascular Disease 09/17/21 Marisa Patel NP [address] [place] [address] Cardiology 06/17/23 documented as of this encounter
--- OUTSIDE RECORDS SUMMARY | 2025-05-10 12:12 | XMS_ITS | Encounter Summary ---
Author Organization [facility] Address [address] [place] [address] Care Team Providers Care Spring Assembler Supervisor Name Role Phone Justice Rivero PA-C Primary Care Provider [phone] Erasmo Heredia MD Unavailable Marisa Patel NP Unavailable [phone] Reason for Referral * EXTERNAL (Routine) - Authorized/Booked Specialty Diagnoses / Procedures Referred By Contfabiana t Referred To Contact Podiatry Procedures REFERRAL TO PODIATRY (OUT OF NETWORK) Justice Rivero PA-C [address] [place] [address] Melinda Naqvi [address] [place] [address] Referral ID Status Reason Start Date Expiration Date V isits Requested Visits Authorized [id number] Authorized/B ooked 12/12/2021 04/22/2022 1 1 Reason for Visit * Reason Onset Date Comments Credentialer Feedback 12/12/2021 podiatry Encounter Details Date Type Department Care Team Description 12/12/2021 Telephone Adult Medicine [facility] [address] [place] [address] Justice Rivero PA-C [address] [place] [address] Credentialer Feedback (podiatry) Social History Tobacco Use Types Packs/Day Years [...] encounter Miscellaneous Notes * Telephone Encounter - Starla Kraus - 12/12/2021 12:35 PM EDT Out of network order for podiatry Dr. Naqvi is needed Dx: Reason for referral: Problem visit for foot dryness, callus Order has been pended documented in this encounter Plan of Treatment Not on file documented as of this encounter Visit Diagnoses Not on filedocumented in this encounter Care Teams Spring Assembler Supervisor Relationship Specialty Start Date End Date Justice Rivero PA-C [address] [place] [address] PCP - General Internal Medicine 12/19/20 Erasmo Heredia MD [address] [place] [address] Installation Service Representative Cardiovascular Disease 09/17/21 Marisa Patel NP [address] [place] [address] Cardiology 06/17/23 documented as of this encounter
--- OUTSIDE RECORDS SUMMARY | 2025-05-10 12:12 | XMS_ITS | Encounter Summary ---
Author Organization [facility] Address [address] [place] [address] Care Team Providers Care Lab Director Name Role Phone Community, Pcp Primary Care Provider UnavailSaritha Tinsley MD Primary Care Provider Julio Elliott MD Primary Care Provider Lakeisha Rickey Vaughan MD Primary Care Provider Unavail able Dominic Gardiner MD Primary Care Provider Justice Rivero PA-C Primary Care Provider Erasmo Heredia MD Unavailable Marisa Patel NP Unavailable [phone] Encounter Details Date Type Department Care Team Description 06/01/1977 Hospital Medical Records [address] [place] [address] Abstract, Provider Social History Tobacco Use Types [...] on filedocumented in this encounter Care Teams Lab Director Relationship Specialty Start Date End Date Community, Pcp PCP - General 11/18/07 08/03/11 Saritha Houston MD [address] [place] [address] 49[address] PCP - General Internal Medicine 08/04/11 10/30/12 Julio Elliott MD [address] [place] [address] 19387 PCP - General Internal Medicine 10/31/12 08/29/14 Rickey Delaney MD [address] [place] [address] 93164 PCP - General Internal Medicine 08/30/14 05/18/15 Dominic Gardiner MD [address] [place] [address] 27329 PCP - General Internal Medicine 05/19/15 12/18/20 Justice Rivero PA-C [address] [place] [address] PCP - General Internal Medicine 12/19/20 Erasmo Heredia MD [address] [place] [address] Store Stocker Cardiovascular Disease 09/17/21 Marisa Patel NP [address] [place] [address] Cardiology 06/17/23 documented as of this encounter
--- OUTSIDE RECORDS SUMMARY | 2025-05-10 12:12 | XMS_ITS | Encounter Summary ---
Author Organization [facility] Address [address] [place] [address] Care Team Providers Care Chassis Engineer Name Role Phone Saritha Houston MD Primary Care Provider [phone] Julio Elliott MD Primary Care Provider Lakeisha Rickey Vaughan MD Primary Care Provider Unavail able Dominic Gardiner MD Primary Care Provider Justice Rivero PA-C Primary Care Provider [phone] Erasmo Heredia MD Unavailable Marisa Patel NP Unavailable [phone] Encounter Details Date Type Department Care Team Description 10/12/2011 Pt. Referral Request [facility] MyChart [address] [place] [address] Md Luis Social History Tobacco Use Types [...] on filedocumented in this encounter Care Teams Chassis Engineer Relationship Specialty Start Date End Date Saritha Houston MD [address] [place] [address] PCP - General Internal Medicine 08/04/11 10/30/12 Julio Elliott MD [address] [place] [address] 19980 PCP - General Internal Medicine 10/31/12 08/29/14 Rickey Delaney MD [address] [place] [address] PCP - General Internal Medicine 08/30/14 05/18/15 Dominic Gardiner MD [address] [place] [address] 913[address] PCP - General Internal Medicine 05/19/15 12/18/20 Justice Rivero PA-C [address] [place] [address] PCP - General Internal Medicine 12/19/20 Erasmo Heredia MD [address] [place] [address] Central Aisle Cashier Cardiovascular Disease 09/17/21 Marisa Patel NP [address] [place] [address] Cardiology 06/17/23 documented as of this encounter
--- OUTSIDE RECORDS SUMMARY | 2025-05-10 12:12 | XMS_ITS | Encounter Summary ---
Author Organization [facility] Address [address] [place] [address] Care Team Providers Care Butcher Helper Name Role Phone Julio Elliott MD Primary Care Provider Lakeisha Rickey Vaughan MD Primary Care Provider Unavail able Dominic Gardiner MD Primary Care Provider Justice Rivero PA-C Primary Care Provider [phone] Erasmo Heredia MD Unavailable Marisa Patel NP Unavailable [phone] Encounter Details Date Type Department Care Team Description 07/02/2014 Home Aid Report Medical Records [address] [place] [address] Colton Ackerman MD Social History Tobacco Use Types Packs/Day [...] on filedocumented in this encounter Care Teams Butcher Helper Relationship Specialty Start Date End Date Julio Elliott MD PCP - General Internal Medicine 10/31/12 Rickey Delaney MD PCP - General Internal Medicine 08/30/14 05/18/15 Dominic Gardiner MD [address] [place] [address] PCP - General Internal Medicine 05/19/15 12/18/20 Justice Rivero PA-C [address] [place] [address] [phone] PCP - General Internal Medicine 12/19/20 Erasmo Heredia MD [address] [place] [address] [phone] Station Attendant Cardiovascular Disease 09/17/21 Marisa Patel NP [address] [place] [address] [phone] Cardiology 06/17/23 documented as of this encounter
--- OUTSIDE RECORDS SUMMARY | 2025-05-10 12:12 | XMS_ITS | Encounter Summary ---
Author Organization [facility] Address [address] [place] [address] Care Team Providers Care Stile Ripsaw Operator Name Role Phone Dominic Gardiner MD Primary Care Provider [phone] Justice Rivero PA-C Primary Care Provider [phone] Erasmo Heredia MD Unavailable Marisa Patel NP Unavailable [phone] Reason for Visit * Reason Comments E-prescribe Rx Request Encounter Details Date Type Department Care Team Description 11/13/2018 Refill Pulmonology - [facility] [address] [facility] [address] [place] [address] Delfino Osorio MD E-prescribe Rx Request Social History Tobacco Use [...] encounter Miscellaneous Notes * Telephone Encounter - Ernestine Hauser - 11/13/2018 8:04 AM EDT Patient would like script to be: E-PRESCRIBED/FAXED TO PHARMACY WHEN WAS THE PATIENT'S LAST APPOINTMENT WITH THE PRESCRIBING PROVIDER? 10/20/2018 Does patient have an upcoming appointment? Yes 05/10/2019 (THE MEDICATION REQUESTED IS ON THE MED LIST ABOVE) All of the medications requested were on the CURRENT MEDS list Did you check the Pharmacy information above?: YES Patient wants: 30 -day supply Is this a mail order prescription request ? NO Patients current insurance carrier is: [place] / [place] / Product Type: MEDICARE [id number] Insurance ID #: [id number] documented in this encounter Plan of Treatment Not on file documented as of this encounter Visit Diagnoses Not on filedocumented in this encounter Care Teams Stile Ripsaw Operator Relationship Specialty Start Date End Date Dominic Gardiner MD [address] [place] [address] PCP - General Internal Medicine 05/19/15 12/18/20 Justice Rivero PA-C [address] [place] [address] PCP - General Internal Medicine 12/19/20 Erasmo Heredia MD [address] [place], [place] [phone] Chief Nursing Executive Cardiovascular Disease 09/17/21 Marisa Patel NP [address] [place] [address] Cardiology 06/17/23 documented as of this encounter
--- OUTSIDE RECORDS SUMMARY | 2025-05-10 12:12 | XMS_ITS | Encounter Summary ---
Author Organization [facility] Address [address] [place] [address] Care Team Providers Care Stoper Name Role Phone Dominic Gardiner MD Primary Care Provider [phone] Justice Rivero PA-C Primary Care Provider [phone] Erasmo Heredia MD Unavailable Marisa Patel NP Unavailable [phone] Encounter Details Date Type Department Care Team Description 12/29/2017 Fruit And Vegetable Parer Report Medical Records [address] [place] [address] Abstract, Provider Social History Tobacco Use Types [...] on filedocumented in this encounter Care Teams Stoper Relationship Specialty Start Date End Date Dominic Gardiner MD [address] [place] [address] [phone] PCP - General Internal Medicine 05/19/15 12/18/20 Justice Rivero PA-C [address] [place] [address] PCP - General Internal Medicine 12/19/20 Erasmo Heredia MD [address] [place] [address] Local Owner Operator Truck Driver Cardiovascular Disease 09/17/21 Marisa Patel NP [address] [place] [address] Cardiology 06/17/23 documented as of this encounter
--- OUTSIDE RECORDS SUMMARY | 2025-05-10 12:12 | XMS_ITS | Encounter Summary ---
Author Organization [facility] Address [address] [place] [address] Care Team Providers Care Instructor Of Spanish Name Role Phone Dominic Gardiner MD Primary Care Provider [phone] Justice Rivero PA-C Primary Care Provider [phone] Erasmo Heredia MD Unavailable Marisa Patel NP Unavailable [phone] Encounter Details Date Type Department Care Team Description 02/06/2018 Orders Only Adult Medicine [address] [phone] Dominic Gardiner MD [address] [place] [address] [phone] Preoperative examination; Screening for deficiency anemia Social History Tobacco Use Types Packs/Day Years [...] on file documented as of this encounter Results * (ABNORMAL) BASIC METABOLIC PANEL (03/07/2018 11:19 AM EDT) GLUCOSE 139(H) 70 - 100 mg/dL 03/07/2018 2:28 PM [facility] Comment: Reference range applicable to fasting specimens only Based on recommendations from the ADA and AACE, the fasting glucose reference range has been changed to 70-100 mg/dL. This change is effective January 19, 2010 BUN 20 5 - 25 mg/dL 03/07/2018 2:28 PM [facility] CREAT 0.7 0.7 - 1.5 mg/dL 03/07/2018 2:28 PM [facility] GFR > 60 >60 03/07/2018 2:28 PM [facility] Comment: If patient is -Ivorian, multiply result by 1.21 Chronic Kidney Disease: < 60 ml/min/1.73 square meters Kidney Failure: < 15 ml/min/1.73 square meters Sodium 146(H) 133 - 145 mEq/L 03/07/2018 2:28 PM [facility] Potassium 4.0 3.5 - 5.5 mEq/L 03/07/2018 2:28 PM [facility] Chloride 103 96 - 108 mEq/L 03/07/2018 2:28 PM [facility] CO2 30.6 21.0 - 32.0 mEq/L 03/07/2018 2:28 PM [facility] CALCIUM 9.5 8.5 - 10.5 mg/dL 03/07/2018 2:28 PM [facility] 03/07/2018 11:1 9 AM EDT 03/07/2018 11:19 AM EDT Dominic Gardiner MD LAB [facility] [address] [facility] * CBC (AUTO DIFF PLATELET) (03/07/2018 11:19 AM EDT) WBC 5.1 4.8 - 10.8 x10-3 03/07/2018 11:39 AM EDT [facility] RBC 3.9 3.8 - 4.8 x10-6 03/07/2018 11:39 AM EDT [facility] HGB 12.0 11.5 - 16.0 g/dl 03/07/2018 11:39 AM EDT [facility] HCT 36.7 35 - 47 % 03/07/2018 11:39 AM EDT [facility] MCV 94.8 79 - 98 fl 03/07/2018 11:39 AM EDT [facility] MCH 31.0 27 - 32 pg 03/07/2018 11:39 AM EDT [facility] MCHC 32.7 32 - 37 g/dl 03/07/2018 11:39 AM EDT [facility] RDW 13.2 11 - 15 % 03/07/2018 11:39 AM EDT [facility] PLT COUNT 153 130 - 400 x10-3 03/07/2018 11:39 AM EDT [facility] MEAN PLATELET VOLUME 10.8 7 - 11 fl 03/07/2018 11:39 AM EDT [facility] NEUT % 67.6 41 - 85 % 03/07/2018 11:39 AM EDT [facility] LYMPH % 21.1 15 - 48 % 03/07/2018 11:39 AM EDT [facility] MONO % 8.5 0 - 12 % 03/07/2018 11:39 AM EDT [facility] EOS % 2.6 0 - 5 % 03/07/2018 11:39 AM EDT [facility] BASO % 0.2 0 - 2 % 03/07/2018 11:39 AM EDT [facility] 03/07/2018 11:1 9 AM EDT 03/07/2018 11:19 AM EDT Dominic Gardiner MD LAB [facility] [address] [facility] documented in this encounter Visit Diagnoses Diagnosis Preoperative examination Preoperative examination, unspecified Screening for deficiency anemia Screening for other and unspecified deficiency anemia documented in this encounter Care Teams Instructor Of Spanish Relationship Specialty Start Date End Date Dominic Gardiner MD [address] [place] [address] 18552 PCP - General Internal Medicine 05/19/15 12/18/20 Justice Rivero PA-C [address] [place] [address] [phone] PCP - General Internal Medicine 12/19/20 Erasmo Heredia MD [address] [place] [address] [phone] Produce Inspector Cardiovascular Disease 09/17/21 Marisa Patel NP [address] [place], [place] [phone] Cardiology 06/17/23 documented as of this encounter
--- OUTSIDE RECORDS SUMMARY | 2025-05-10 12:12 | XMS_ITS | Encounter Summary ---
Author Organization [facility] Address [address] [place] [address] Care Team Providers Care Psychiatric Nursing Assistant Name Role Phone Julio Elliott MD Primary Care Provider Lakeisha Rickey Vaughan MD Primary Care Provider Unavail able Dominic Gardiner MD Primary Care Provider Justice Rivero PA-C Primary Care Provider Erasmo Heredia MD Unavailable Marisa Patel NP Unavailable [phone] Encounter Details Date Type Department Care Team Description 10/30/2013 Hospital Medical Records [address] [place] [address] Heriberto Abbott MD Social History Tobacco Use Types Packs/Day [...] on filedocumented in this encounter Care Teams Psychiatric Nursing Assistant Relationship Specialty Start Date End Date Julio Elliott MD PCP - General Internal Medicine 10/31/12 Rickey Delaney MD PCP - General Internal Medicine 08/30/14 05/18/15 Dominic Gardiner MD [address] [place] [address] 6[address]73 PCP - General Internal Medicine 05/19/15 12/18/20 Justice Rivero PA-C [address] [place] [address] [phone] PCP - General Internal Medicine 12/19/20 Erasmo Heredia MD [address] [place] [address] [phone] Residential Roofer Helper Cardiovascular Disease 09/17/21 Marisa Patel NP [address] [place] [address] [phone] Cardiology 06/17/23 documented as of this encounter
--- OUTSIDE RECORDS SUMMARY | 2025-05-10 12:12 | XMS_ITS | Encounter Summary ---
Author Organization [facility] Address [address] [place] [address] Care Team Providers Care Honing Machine Try Out Setter Name Role Phone Dominic Gardiner MD Primary Care Provider [phone] Justice Rivero PA-C Primary Care Provider [phone] Erasmo Heredia MD Unavailable Marisa Patel NP Unavailable [phone] Reason for Visit * Reason Onset Date Comments Faxed Refill 11/06/2018 Encounter Details Date Type Department Care Team Description 11/06/2018 Refill Adult Medicine [address] [phone] Dominic Gardiner MD [address] [place] [address] [phone] Faxed Refill Social History Tobacco Use Types Packs/Day [...] encounter Miscellaneous Notes * Telephone Encounter - Justice Rivero PA-C - 11/08/2018 10:35 AM EST Yes I believe we stopped the medication. If the patient wants to restart I can certainly prescribe. * Telephone Encounter - Kristy Sorensen M.A. - 11/08/2018 10:31 AM EST Please confirm d/c'd at last office visit * Telephone Encounter - Neris Harry - 11/06/2018 7:19 PM EST Patient would like script to be: E-PRESCRIBED/FAXED TO PHARMACY WHEN WAS THE PATIENT'S LAST APPOINTMENT IN ADULT MEDICINE? 10/26/18 WHEN WAS THE LAST TIME THE PATIENT SAW THEIR PCP? 05/10/18 Does patient have an upcoming appointment? Yes 02/26/19 (THE MEDICATION REQUESTED IS ON THE MED [...] / Plan[place] / Product Type: MEDICARE [id number] Insurance ID #: [id number] documented in this encounter Plan of Treatment Not on file documented as of this encounter Visit Diagnoses Diagnosis At risk for falling Personal history of fall S/P total knee arthroplasty, bilateral Arthritis of knee Unspecified arthropathy, lower leg Other specified hypothyroidism Fibromyalgia Mylagia and myositis, unspecified Diabetes mellitus type 2 with neurological manifestations (HCC) Type II or unspecified type diabetes mellitus with neurological manifestations, not stated as uncontrolled Essential hypertension Unspecified essential hypertension documented in this encounter Care Teams Honing Machine Try Out Setter Relationship Specialty Start Date End Date Dominic Gardiner MD [address] [place] [address]33 PCP - General Internal Medicine 05/19/15 12/18/20 Justice Rivero PA-C [address] [place] [address] 34626 PCP - General Internal Medicine 12/19/20 Erasmo Heredia MD [address] [place] [address] 16739 Track Hoe Operator Cardiovascular Disease 09/17/21 Marisa Patel NP [address] [place] [address] 595[address] Cardiology 06/17/23 documented as of this encounter
--- OUTSIDE RECORDS SUMMARY | 2025-05-10 12:12 | XMS_ITS | Encounter Summary ---
Author Organization [facility] Address [address] [place] [address] Care Team Providers Care Solar Thermal Technician Name Role Phone Julio Elliott MD Primary Care Provider Lakeisha Rickey Vaughan MD Primary Care Provider Unavail able Dominic Gardiner MD Primary Care Provider Justice Rivero PA-C Primary Care Provider [phone] Erasmo Heredia MD Unavailable Marisa Patel NP Unavailable [phone] Encounter Details Date Type Department Care Team Description 03/28/2014 Commercial Litigation Paralegal Report Medical Records [address] [place] [address] [facility] Social History Tobacco Use Types Packs/Day Years [...] on filedocumented in this encounter Care Teams Solar Thermal Technician Relationship Specialty Start Date End Date Lexi, Julio M., MD PCP - General Internal Medicine 10/31/12 Rickey Delaney MD PCP - General Internal Medicine 08/30/14 05/18/15 Dominic Gardiner MD [address] [place] [address] [phone] PCP - General Internal Medicine 05/19/15 12/18/20 Justice Rivero PA-C [address] [place] [address] [phone] PCP - General Internal Medicine 12/19/20 Erasmo Heredia MD [address] [place] [address] [phone] Endless Bed Drum Sander Cardiovascular Disease 09/17/21 Marisa Patel NP [address] [place] [address] [phone] Cardiology 06/17/23 documented as of this encounter
--- OUTSIDE RECORDS SUMMARY | 2025-05-10 12:12 | XMS_ITS | Encounter Summary ---
Author Organization [facility] Address [address] [place] [address] Care Team Providers Care Acoustical Engineer Name Role Phone Julio Elliott MD Primary Care Provider Lakeisha Rickey Vaughan MD Primary Care Provider Unavail able Dominic Gardiner MD Primary Care Provider Justice Rivero PA-C Primary Care Provider [phone] Erasmo Heredia MD Unavailable Marisa Patel NP Unavailable [phone] Encounter Details Date Type Department Care Team Description 2013 Release of Information Medical Records [address] [place] [address] Abstract, Provider Social History Tobacco Use Types [...] on filedocumented in this encounter Care Teams Acoustical Engineer Relationship Specialty Start Date End Date Lexi, Julio M., MD PCP - General Internal Medicine 10/31/12 Rickey Delaney MD PCP - General Internal Medicine 08/30/14 05/18/15 Dominic Gardiner MD [address] [place] [address] PCP - General Internal Medicine 05/19/15 12/18/20 Justice Rivero PA-C [address] [place] [address] [phone] PCP - General Internal Medicine 12/19/20 Erasmo Heredia MD [address] [place] [address] [phone] Air Transportation Provider Cardiovascular Disease 09/17/21 Marisa Patel NP [address] [place] [address] Cardiology 06/17/23 documented as of this encounter
--- OUTSIDE RECORDS SUMMARY | 2025-05-10 12:12 | XMS_ITS | Encounter Summary ---
Author Organization [facility] Address [address] [place] [address] Care Team Providers Care Twister Operator Name Role Phone Justice Rivero PA-C Primary Care Provider [phone] Erasmo Heredia MD Unavailable Marisa Patel NP Unavailable [phone] Encounter Details Date Type Department Care Team Description 02/25/2022 Cooler Tender Report Medical Records [address] [place] [address] Albin Arteaga MD Social History Tobacco Use Types Packs/Day [...] on filedocumented in this encounter Care Teams Twister Operator Relationship Specialty Start Date End Date Justice Rivero PA-C [address] [place] [address] PCP - General Internal Medicine 12/19/20 Erasmo Heredia MD [address] [place] [address] Hardener Helper Cardiovascular Disease 09/17/21 Marisa Patel NP [address] [place] [address] Cardiology 06/17/23 documented as of this encounter
--- OUTSIDE RECORDS SUMMARY | 2025-05-10 12:12 | XMS_ITS | Encounter Summary ---
Author Organization [facility] Address [address] [place] [address] Care Team Providers Care Grey Goods Tester Name Role Phone Julio Elliott MD Primary Care Provider Lakeisha Rickey Vaughan MD Primary Care Provider Unavail able Dominic Gardiner MD Primary Care Provider Justice Rivero PA-C Primary Care Provider [phone] Erasmo Heredia MD Unavailable Marisa Patel NP Unavailable [phone] Encounter Details Date Type Department Care Team Description 10/26/2013 Disbursement Clerk Report Medical Records [address] [place] [address] Jt Overton Social History Tobacco Use Types [...] on filedocumented in this encounter Care Teams Grey Goods Tester Relationship Specialty Start Date End Date Lexi, Julio M., MD PCP - General Internal Medicine 10/31/12 Rickey Delaney MD PCP - General Internal Medicine 08/30/14 05/18/15 Dominic Gardiner MD [address] [place] [address] PCP - General Internal Medicine 05/19/15 12/18/20 Justice Rivero PA-C [address] [place] [address] [phone] PCP - General Internal Medicine 12/19/20 Erasmo Heredia MD [address] [place] [address] [phone] Make Up Worker Cardiovascular Disease 09/17/21 Marisa Patel NP [address] [place] [address] [phone] Cardiology 06/17/23 documented as of this encounter
--- OUTSIDE RECORDS SUMMARY | 2025-05-10 12:12 | XMS_ITS | Encounter Summary ---
Author Organization [facility] Address [address] [place] [address] Care Team Providers Care Professional Engineer Name Role Phone Justice Rivero PA-C Primary Care Provider Erasmo Heredia MD Unavailable Marisa Patel NP Unavailable [phone] Reason for Visit * Reason Onset Date Comments Annual Wellness Outreach 11/07/2022 Encounter Details Date Type Department Care Team Description 11/07/2022 Telephone Adult Medicine [address] [phone] Justice Rivero PA-C [address] [place] [address] [phone] Annual Wellness Outreach Social History Tobacco Use Types Packs/Day Years [...] encounter Miscellaneous Notes * Telephone Encounter - Eydta Martin R.N. - 11/07/2022 3:06 PM EST Call to Pt to schedule AWV, no answer, left message to return phone call. If Pt calls back, BSR mayschedule AWV. documented in this encounter Plan of Treatment Not on file documented as of this encounter Visit Diagnoses Not on filedocumented in this encounter Care Teams Professional Engineer Relationship Specialty Start Date End Date Justice Rivero PA-C [address] [place] [address] PCP - General Internal Medicine 12/19/20 Erasmo Heredia MD [address] [place] [address] Jazz Musician Cardiovascular Disease 09/17/21 Marisa Patel NP [address] [place] [address] Cardiology 06/17/23 documented as of this encounter
--- OUTSIDE RECORDS SUMMARY | 2025-05-10 12:12 | XMS_ITS | Encounter Summary ---
Author Organization [facility] Address [address] [place] [address] Care Team Providers Care Make Up Operator Helper Name Role Phone Julio Elliott MD Primary Care Provider Lakeisha Rickey Vaughan MD Primary Care Provider Unavail able Dominic Gardiner MD Primary Care Provider [phone] Justice Rivero PA-C Primary Care Provider [phone] Erasmo Heredia MD Unavailable Marisa Patel NP Unavailable [phone] Encounter Details Date Type Department Care Team Description 12/24/2013 Pt. Non Urgent Medical Question [facility] [address] [place] [phone] Jeffeyr Velez MD Social History Tobacco Use Types Packs/Day [...] as of this encounter Progress Notes * Melly Dunn L.P.N. - 12/24/2013 2:10 PM EDTFrom: SHAGGY SUTTON To: Jeffery Velez MD Sent: TueDec 24, 2013 1:46 PM Subject: Message to JACLYN Trujillo, During my office visit on 12/20/13 you requested I send you an e-mail with the dose of a medication I resumed taking so you can update your records: Hydrochlorothiazide 25 mg documented in this encounter Plan of Treatment Not on file documented as of this encounter Visit Diagnoses Not on filedocumented in this encounter Care Teams Make Up Operator Helper Relationship Specialty Start Date End Date Julio Elliott MD PCP - General Internal Medicine 10/31/12 Rickey Delaney MD PCP - General Internal Medicine 08/30/14 05/18/15 Dominic Gardiner MD [address] [place] [address] PCP - General Internal Medicine 05/19/15 12/18/20 Justice Rivero PA-C [address] [place] [address] PCP - General Internal Medicine 12/19/20 Erasmo Heredia MD [address] [place] [address] Auto Former Machine Operator Cardiovascular Disease 09/17/21 Marisa Patel NP [address] [place] [address] Cardiology 06/17/23 documented as of this encounter
--- OUTSIDE RECORDS SUMMARY | 2025-05-10 12:12 | XMS_ITS | Encounter Summary ---
Author Organization [facility] Address [address] [place] [address] Care Team Providers Care School Health Aide Name Role Phone Julio Elliott MD Primary Care Provider Lakeisha Rickey Vaughan MD Primary Care Provider Unavail able Dominic Gardiner MD Primary Care Provider Jutsice Rivero PA-C Primary Care Provider [phone] Erasmo Heredia MD Unavailable Marisa Patel NP Unavailable [phone] Encounter Details Date Type Department Care Team Description 08/16/2014 Alarm Signaler Report Medical Records [address] [place] [address] Delfino Osorio MD Social History Tobacco Use [...] on filedocumented in this encounter Care Teams School Health Aide Relationship Specialty Start Date End Date Lexi, Julio M., MD PCP - General Internal Medicine 10/31/12 Rickey Delaney MD PCP - General Internal Medicine 08/30/14 05/18/15 Dominic Gardiner MD [address] [place] [address] [phone] PCP - General Internal Medicine 05/19/15 12/18/20 Justice Rivero PA-C [address] [place] [address] [phone] PCP - General Internal Medicine 12/19/20 Erasmo Heredia MD [address] [place] [address] [phone] Hair Baler Cardiovascular Disease 09/17/21 Marisa Patel NP [address] [place] [address] [phone] Cardiology 06/17/23 documented as of this encounter
--- OUTSIDE RECORDS SUMMARY | 2025-05-10 12:12 | XMS_ITS | Encounter Summary ---
Author Organization [facility] Address [address] [place] [address] Care Team Providers Care Textile Pin Worker Name Role Phone Julio Elliott MD Primary Care Provider Lakeisha Rickey Vaughan MD Primary Care Provider Unavail able Dominic Gardiner MD Primary Care Provider Justice Rivero PA-C Primary Care Provider Erasmo Heredia MD Unavailable Marisa Patel NP Unavailable [phone] Encounter Details Date Type Department Care Team Description 01/02/2014 Back Roll Lathe Operator Report Medical Records [address] [place] [address] Brennon Santacruz PA-C Social History Tobacco Use Types Packs/Day Years [...] on filedocumented in this encounter Care Teams Textile Pin Worker Relationship Specialty Start Date End Date Julio Elliott MD PCP - General Internal Medicine 10/31/12 Rickey Delaney MD PCP - General Internal Medicine 08/30/14 05/18/15 Dominic Gardiner MD [address] [place] [address] PCP - General Internal Medicine 05/19/15 12/18/20 Justice Rivero PA-C [address] [place] [address] [phone] PCP - General Internal Medicine 12/19/20 Erasmo Heredia MD [address] [place] [address] [phone] Senior Asic Design Engineer Cardiovascular Disease 09/17/21 Marisa Patel NP [address] [place] [address] [phone] Cardiology 06/17/23 documented as of this encounter
--- OUTSIDE RECORDS SUMMARY | 2025-05-10 12:12 | XMS_ITS | Encounter Summary ---
Author Organization [facility] Address [address] [place] [address] Care Team Providers Care Pulmonologist Name Role Phone Mitch Gonzalez Primary Care Provider [phone] Encounter Details Date Type Department Care Team (Latest Contact Info) Description 02/16/2022 Orders Only [facility] [address] [place] [address] Babatunde Allan NP [address] [place] [address] Common variable hypogammaglobulinemia (Primary Dx) Social History [...] immunodeficiency documented in this encounter Care Teams Pulmonologist Relationship Specialty Start Date End Date Mitch Gonzalez PA [address] [place] [address] PCP - General Emergency Medicine 06/25/24 documented as of this encounter
--- OUTSIDE RECORDS SUMMARY | 2025-05-10 12:12 | XMS_ITS | Encounter Summary ---
Author Organization [facility] Address [address] [place] [address] Care Team Providers Care Blindstitch Hemmer Name Role Phone [facility] Pcp Primary Care Provider UnavailSaritha Tinsley MD Primary Care Provider [phone] Julio Elliott MD Primary Care Provider Lakeisha Rickey Vaughan MD Primary Care Provider Unavail able Dominic Gardiner MD Primary Care Provider Justice Rivero PA-C Primary Care Provider Erasmo Heredia MD Unavailable Marisa Patel NP Unavailable [phone] Encounter Details Date Type Department Care Team Description 05/14/1980 Hospital Medical Records [address] [place] [address] Social History Tobacco Use Types Packs/Day Years [...] on filedocumented in this encounter Care Teams Blindstitch Hemmer Relationship Specialty Start Date End Date Community, Pcp PCP - General 11/18/07 08/03/11 Saritha Houston MD [address] [place] [address] PCP - General Internal Medicine 08/04/11 10/30/12 Julio Elliott MD [address] [place] [address] PCP - General Internal Medicine 10/31/12 08/29/14 Rickey Delaney MD [address] [place] [address] 8[address] PCP - General Internal Medicine 08/30/14 05/18/15 Dominic Gardiner MD [address] [place] [address] 86[address] PCP - General Internal Medicine 05/19/15 12/18/20 Justice Rivero PA-C [address] [place] [address] PCP - General Internal Medicine 12/19/20 Erasmo Heredia MD [address] [place] [address] Bus Repair Supervisor Cardiovascular Disease 09/17/21 Marisa Patel NP [address] [place] [address] Cardiology 06/17/23 documented as of this encounter
--- OUTSIDE RECORDS SUMMARY | 2025-05-10 12:12 | XMS_ITS | Encounter Summary ---
Author Organization [facility] Address [address] [place] [address] Care Team Providers Care Filer Repairer Name Role Phone Julio Elliott MD Primary Care Provider Lakeisha Rickey Vaughan MD Primary Care Provider Unavail able Dominic Gardiner MD Primary Care Provider [phone] Justice Rivero PA-C Primary Care Provider [phone] Erasmo Heredia MD Unavailable Marisa Patel NP Unavailable [phone] Encounter Details Date Type Department Care Team Description 04/05/2014 Pt. Non Urgent Medical Question Adult Medicine [address] [address] Julio Elliott MD Social History Tobacco Use Types Packs/Day [...] as of this encounter Progress Notes * Rose Miller L.P.N. - 04/05/2014 3:15 PM EDTFrom: Gabi Herman To: Juloi Elliott MD Sent: 04/05/2014 12:45 PM EDT Subject: F/U Appt. 04/12/14 Should I have labs done to check sugar and thyroid levels prior to this appointment? If so do I fast prior to test? Thank you for your time. Gabi Sutton documented in this encounter Plan of Treatment Not on file documented as of this encounter Visit Diagnoses Not on filedocumented in this encounter Care Teams Filer Repairer Relationship Specialty Start Date End Date Julio Elliott MD PCP - General Internal Medicine 10/31/12 Rickey Delaney MD PCP - General Internal Medicine 08/30/14 05/18/15 Dominic Gardiner MD [address] [place] [address] 19893 PCP - General Internal Medicine 05/19/15 12/18/20 Justice Rivero PA-C [address] [place] [address] PCP - General Internal Medicine 12/19/20 Erasmo Heredia MD [address] [place] [address] Knockup Worker Cardiovascular Disease 09/17/21 Marisa Patel NP [address] [place] [address] Cardiology 06/17/23 documented as of this encounter
--- OUTSIDE RECORDS SUMMARY | 2025-05-10 12:12 | XMS_ITS | Encounter Summary ---
Author Organization [facility] Address [address] [place] [address] Care Team Providers Care Information Security Risk Analyst Name Role Phone Justice Rivero PA-C Primary Care Provider [phone] Erasmo Heredia MD Unavailable Marisa Patel NP Unavailable [phone] Encounter Details Date Type Department Care Team Description 09/02/2021 Orders Only Radiology - [facility] [address] [place], [place] [phone] Davonte Lamb MD [address] [place], [place] [phone] Breast discharge Social History Tobacco Use Types Packs/Day Years [...] have Coronavirus / COVID-19? No / Unsure 08/27/2021 1:45 PM EST documented as of this encounter Plan of Treatment Not on file documented as of this encounter Procedures Procedure Name Priority Date/Time Associated Diagnosis Comments CHG MRI BREAST WITHOUT&WITH CONTRAST W/CAD BILATERAL Routine 09/01/2021 Breast discharge documented in this encounter Results * CHG MRI BREAST WITHOUT&WITH CONTRAST W/CAD BILATERAL (09/01/2021) Davonte Lamb MD MRI documented in this encounter Visit Diagnoses Diagnosis Breast discharge Other sign and symptom in breast documented in this encounter Care Teams Information Security Risk Analyst Relationship Specialty Start Date End Date Justice Rivero PA-C [address] [place] [address] PCP - General Internal Medicine 12/19/20 Erasmo Heredia MD [address] [place] [address] Progressive Care Unit Registered Nurse Cardiovascular Disease 09/17/21 Marisa Patel NP [address] [place] [address] Cardiology 06/17/23 documented as of this encounter
--- OUTSIDE RECORDS SUMMARY | 2025-05-10 12:12 | XMS_ITS | Encounter Summary ---
Author Organization [facility] Address [address] [place] [address] Care Team Providers Care Web Site Admin Name Role Phone Justice Rivero PA-C Primary Care Provider [phone] Erasmo Heredia MD Unavailable Marisa Patel NP Unavailable [phone] Encounter Details Date Type Department Care Team Description 07/22/2022 Pullboat Engineer Report Medical Records [address] [place] [address] Delfino Osorio MD Social History Tobacco Use [...] on filedocumented in this encounter Care Teams Web Site Admin Relationship Specialty Start Date End Date Justice Rivero PA-C [address] [place] [address] PCP - General Internal Medicine 12/19/20 Erasmo Heredia MD [address] [place] [address] Education Paraprofessional Cardiovascular Disease 09/17/21 Marisa Patel NP [address] [place] [address] Cardiology 06/17/23 documented as of this encounter
--- OUTSIDE RECORDS SUMMARY | 2025-05-10 12:12 | XMS_ITS | Encounter Summary ---
Author Organization [facility] Address [address] [place] [address] Care Team Providers Care Dealer Sales Rep Name Role Phone Dominic Gardiner MD Primary Care Provider [phone] Justice Rivero PA-C Primary Care Provider [phone] Erasmo Heredia MD Unavailable Marisa Patel NP Unavailable [phone] Encounter Details Date Type Department Care Team Description 06/20/2018 Business Doc Medical Records [address] [place] [address] Abstract, Provider Social History Tobacco Use Types [...] on filedocumented in this encounter Care Teams Dealer Sales Rep Relationship Specialty Start Date End Date Dominic Gardnier MD [address] [place] [address] [phone] PCP - General Internal Medicine 05/19/15 12/18/20 Justice Rivero PA-C [address] [place] [address] PCP - General Internal Medicine 12/19/20 Erasmo Heredia MD [address] [place] [address] Geodetic Surveyor Technologist Cardiovascular Disease 09/17/21 Marisa Patel NP [address] [place] [address] Cardiology 06/17/23 documented as of this encounter
--- OUTSIDE RECORDS SUMMARY | 2025-05-10 12:12 | XMS_ITS ---
Author Name [facility] Organization Unknown Care Team Organization Name Specialty Phone Email Start Date End Da te [facility] Clari Larkin Primary Care 11/10/2022 04/23/20 [facility] Justice Rivero Primary Care 07/13/2022
--- OUTSIDE RECORDS SUMMARY | 2025-05-10 12:12 | XMS_ITS | Encounter Summary ---
Author Organization [facility] Address [address] [place] [address] Care Team Providers Care Air Pollution Analyst Name Role Phone Julio Elliott MD Primary Care Provider Lakeisha Rickey Vaughan MD Primary Care Provider Unavail able Dominic Gardiner MD Primary Care Provider Justice Rivero PA-C Primary Care Provider [phone] Erasmo Heredia MD Unavailable Marisa Patel NP Unavailable [phone] Encounter Details Date Type Department Care Team Description 11/08/2013 [facility] [address] [place] [address] Md Luis Social History Tobacco Use Types [...] on filedocumented in this encounter Care Teams Air Pollution Analyst Relationship Specialty Start Date End Date Julio Elliott MD PCP - General Internal Medicine 10/31/12 Rickey Delaney MD PCP - General Internal Medicine 08/30/14 05/18/15 Dominic Gardiner MD [address] [place] [address] PCP - General Internal Medicine 05/19/15 12/18/20 Justice Rivero PA-C [address] [place] [address] [phone] PCP - General Internal Medicine 12/19/20 Erasmo Heredia MD [address] [place] [address] [phone] Dye Range Feeder Cardiovascular Disease 09/17/21 Marisa Patel NP [address] [place] [address] [phone] Cardiology 06/17/23 documented as of this encounter
--- OUTSIDE RECORDS SUMMARY | 2025-05-10 12:12 | XMS_ITS | Encounter Summary ---
Author Organization [facility] Address [address] [place] [address] Care Team Providers Care Power Hammer Operator Name Role Phone Julio Elliott MD Primary Care Provider Lakeisha Rickey Vaughan MD Primary Care Provider Unavail able Dominic Gardiner MD Primary Care Provider Justice Rivero PA-C Primary Care Provider [phone] Erasmo Heredia MD Unavailable Marisa Patel NP Unavailable [phone] Encounter Details Date Type Department Care Team Description 11/15/2013 Apprentice Painter Hand Report Medical Records [address] [place] [address] [facility] Social History Tobacco Use Types Packs/Day [...] on filedocumented in this encounter Care Teams Power Hammer Operator Relationship Specialty Start Date End Date Lexi, Julio M., MD PCP - General Internal Medicine 10/31/12 Rickey Delaney MD PCP - General Internal Medicine 08/30/14 05/18/15 Dominic Gardiner MD [address] [place] [address] [phone] PCP - General Internal Medicine 05/19/15 12/18/20 Justice Rivero PA-C [address] [place] [address] [phone] PCP - General Internal Medicine 12/19/20 Erasmo Heredia MD [address] [place] [address] [phone] Market Research Coordinator Cardiovascular Disease 09/17/21 Marisa Patel NP [address] [place] [address] [phone] Cardiology 06/17/23 documented as of this encounter
== END 2025-05-10 11:55 | disposition home or self-care (01) ==
LOC: HO.HPS 11:06
PROVIDERS: PCP Physician Assistant Surgical; Visit Provider Hospitalist
DX: J45.41 Moderate persistent asthma with (acute) exacerbation (principal); G47.33 Obstructive sleep apnea (adult) (pediatric); D80.1 Nonfamilial hypogammaglobulinemia; Z77.090 Contact with and (suspected) exposure to asbestos; J40 Bronchitis, not specified as acute or chronic; J38.3 Other diseases of vocal cords
CPT/HCPCS: 99214; G2211

== ENCOUNTER 2025-05-10 11:05 | Outpatient (REF) | payer MEDICARE, SELFPAY ==
[2025-05-10 12:28] LABS: MANUAL DIFF FLAG NO
[2025-05-10 12:59] LABS: Hematocrit 37.4 % (37.0-47.0); Hemoglobin 12.9 g/dl (12.0-16.0); Imm Gran Abs Auto 0.01 X10*3/uL (0.00-0.03); Imm Gran Pct Auto 0.2 % (0.0-0.4); Lymphocytes Absolute Auto 1.5 X10*3/uL (1.2-4.9); Mean Corpuscular HGB Conc 34.5 g/dl (31.0-35.0); Mean Corpuscular Hemoglobin 31.5 pg (27.0-33.0); Mean Corpuscular Volume 91.2 fL (80.0-98.0); NRBC Abs Auto 0.000 X10*3/uL (0.0-0.012); NRBC Pct Auto 0.0 /100WBC (0.0-0.2); Platelet Count 182 X10*3/uL (160-400); Red Blood Count 4.10 X10*6/uL (4.20-5.50); White Blood Count 5.7 X10*3/uL (4.8-10.8)
[2025-05-16 20:23] LABS: SARS COV2 IgG Positive (Negative)
[2025-05-20 12:14] LABS: SARS-COV-2 IgG Spike, Semi-Qnt >2500.0 H
== END 2025-05-10 11:06 | disposition home or self-care (01) ==
LOC: HO.LAB 11:05
PROVIDERS: PCP Physician Assistant Surgical; Visit Provider Hospitalist
DX: J45.41 Moderate persistent asthma with (acute) exacerbation (principal); J38.3 Other diseases of vocal cords; G47.33 Obstructive sleep apnea (adult) (pediatric); D80.1 Nonfamilial hypogammaglobulinemia; Z77.090 Contact with and (suspected) exposure to asbestos
CPT/HCPCS: 36415; 82784; 82785; 85025; 85652; 86769; 99212